=== PATIENT | female | born 1995 | race Two or more races ===

== ENCOUNTER 2016-10-10 04:37 | Emergency (ER) | payer OTHER ==
[2016-10-10 04:45] VITALS: BMI 14.6
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
[2016-10-10] MEDS ORDERED: INSULIN (NOVOLOG) ASPART 100 UNITS/ML 10ML VIAL SQ ONE (04:57)
[2016-10-10] MEDS ORDERED: SODIUM CHLORIDE 1,000 ML IV STA ×2 (04:57→05:52)
[2016-10-10 05:10] LABS: BASOPHIL 0.3 % (0-2.0); EOSINOPHIL 0.1 % (0-4.5); MCH 29.8 pg (25.7-33.7); MCHC 33.3 g/dl (32.0-36.0); MEAN CELL VOLUME 89.4 fl (80-96); MEAN PLT VOLUME 9.4 fl (7.5-11.1); NEUTROPHILS 76.7 % (42.8-82.8); PLATELET COUNT 157 K/MM3 (134-434); RDW 12.8 % (11.6-15.6); WHITE BLOOD COUNT 5.2 K/mm3 (4.0-10.0)
[2016-10-10 05:21] LABS: URINE APPEARANCE CLEAR; URINE BILIRUBIN NEGATIVE (NEGATIVE); URINE COLOR COLORLESS; URINE GLUCOSE (UA) 3+ (NEGATIVE); URINE KETONE 1+ (NEGATIVE); URINE LEUK ESTERASE NEGATIVE (NEGATIVE); URINE NITRITE NEGATIVE (NEGATIVE); URINE PROTEIN NEGATIVE (NEGATIVE); URINE UROBILINOGEN NEGATIVE E.U./dl (0.2-1.0)
[2016-10-10 05:30] LABS: URINE BLOOD 3+ (NEGATIVE)
[2016-10-10 05:32] LABS: URINE RBC 41 /hpf (0-3); URINE WBC 11 /hpf (3-5)
[2016-10-10 05:33] LABS: ALBUMIN 3.8 g/dl (3.4-5.0); ANION GAP 18 (8-16); BILIRUBIN,TOTAL 0.3 mg/dL (0.2-1.0); CO2 19 mmol/L (21-32); COCKROFT - GAULT 88.7485; CREATININE 0.6 mg/dL (0.55-1.02); SGOT/AST 17 U/L (15-37); SGPT/ALT 18 U/L (12-78)
[2016-10-10 05:34] LABS: ALK PHOS 119 U/L (45-117)
[2016-10-10 05:41] LABS: GLUCOSE,RANDOM 491 mg/dL (74-106)
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
[2016-10-10 07:46] LABS: ALBUMIN 3.2 g/dl (3.4-5.0); ALK PHOS 90 U/L (45-117); ANION GAP 11 (8-16); BILIRUBIN,TOTAL 0.2 mg/dL (0.2-1.0); CO2 23 mmol/L (21-32); CREATININE 0.4 mg/dL (0.55-1.02); GLUCOSE,RANDOM 210 mg/dL (74-106); SGOT/AST 11 U/L (15-37); SGPT/ALT 17 U/L (12-78); TOT PROT 5.6 g/dl (6.4-8.2)
[2016-10-10 07:51] LABS: CALCIUM 6.9 mg/dL (8.5-10.1)
[2016-10-10] MEDS ORDERED: CALCIUM GLUCONATE 10% - 1,000 MG/10 ML VIAL IVPB ONE (07:57)
[2016-10-10] MEDS ORDERED: CALCIUM GLUCONATE 10% - 1,000 MG/10 ML VIAL ONE (08:44)
[2016-10-10 11:12] LABS: CALCIUM 7.6 mg/dL (8.5-10.1); COCKROFT - GAULT 133.127; CREATININE 0.4 mg/dL (0.55-1.02)
[2016-10-10 12:45] VITALS: BP 103/69; PULSE 84; TEMP 98.1
== END 2016-10-10 12:41 | disposition home or self-care (01) ==
LOC: JER 04:37
PROC: 3E013VG Introduction of Insulin into Subcutaneous Tissue, Percutaneous Approach (ICD-10-PCS; principal; 2016-10-10)
PROC: 3E033GC Introduction of Other Therapeutic Substance into Peripheral Vein, Percutaneous Approach (ICD-10-PCS; 2016-10-10)
PROC: 3E0337Z Introduction of Electrolytic and Water Balance Substance into Peripheral Vein, Percutaneous Approach (ICD-10-PCS; 2016-10-10)
DX: E10.65 Type 1 diabetes mellitus with hyperglycemia (principal); Z79.4 Long term (current) use of insulin; E83.51 Hypocalcemia; R01.1 Cardiac murmur, unspecified; Y04.2XXA Assault by strike against or bumped into by another person, initial encounter; Y93.9 Activity, unspecified; Y92.9 Unspecified place or not applicable
CPT/HCPCS: 36415; 80048; 80053; 81003; 81015; 82009; 84703; 85025; 96361; 96372; 96374; 99284-25

== ENCOUNTER 2017-01-21 21:55 | Emergency (ER) | payer SELFPAY ==
[2017-01-21 22:07] VITALS: TEMP 97.8; BMI 14.9
--- NOTE | 2017-01-21 23:07 | PDOC ---
Attending Attestation - Resident Resident Name: Aarti Tovar - HPI HPI: 01/22/17 03:21 Pt comes with uncontrolled DM and headache. She doesn't take check her FS glucose. She doesn't follow with an research dietitian. SHe took extra insulin for the headache, as she has had [facility] in the past with elevated blood sugar. 01/22/17 03:22 Today her FS is 570s and she is in early DKA - Physicial Exam PE: 01/22/17 03:24 agree with resident exam. - Medical Decision Making 01/22/17 03:24 NSS, reg insulin in the ER. FS came down to 120 Repeat labs will be drawn to make sure pt's acetone cleared.
[2017-01-21] MEDS ORDERED: METOCLOPRAMIDE HCL INJECTION 10 MG/2 ML VIAL IVPUSH ONE (23:15)
[2017-01-21] MEDS ORDERED: KETOROLAC TROMETHAMINE 30 MG/1 ML VIAL IVPUSH ONE (23:15)
[2017-01-21] MEDS ORDERED: KETOROLAC TROMETHAMINE 30 MG/1 ML VIAL ONE (23:21)
[2017-01-21] MEDS ORDERED: METOCLOPRAMIDE HCL INJECTION 10 MG/2 ML VIAL ONE (23:21)
[2017-01-21] MEDS ORDERED: SODIUM CHLORIDE 1,000 ML IV STA (23:30)
[2017-01-21] MEDS ORDERED: INSULIN REGULAR HUMAN 100 UNITS/ML *VIAL IVPUSH ONE (23:31)
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
[2017-01-21 23:46] LABS: BASOPHIL 0.4 % (0-2.0); EOSINOPHIL 0.2 % (0-4.5); MCH 31.1 pg (25.7-33.7); MEAN CELL VOLUME 91.6 fl (80-96); MEAN PLT VOLUME 9.3 fl (7.5-11.1); PLATELET COUNT 199 K/MM3 (134-434); RDW 12.5 % (11.6-15.6)
[2017-01-22 00:31] LABS: ALK PHOS 113 U/L (45-117); ANION GAP 14 (8-16); BILIRUBIN,TOTAL 0.4 mg/dL (0.2-1.0); CALCIUM 9.5 mg/dL (8.5-10.1); CO2 22 mmol/L (21-32); CREATININE 0.6 mg/dL (0.55-1.02); SGOT/AST 11 U/L (15-37); SGPT/ALT 20 U/L (12-78); TOT PROT 7.1 g/dl (6.4-8.2)
[2017-01-22 00:33] LABS: PHOSPHOROUS 4.6 mg/dL (2.5-4.9)
[2017-01-22 00:39] LABS: GLUCOSE,RANDOM 578 mg/dL (74-106)
[2017-01-22 00:46] LABS: VENOUS BLOOD GAS HCO3 21.1 meq/L (19-25); VENOUS PH 7.31 (7.32-7.42)
[2017-01-22] MEDS ORDERED: INSULIN REGULAR HUMAN 100 UNITS/ML *VIAL IVPUSH ONE (00:56)
[2017-01-22] MEDS ORDERED: POTASSIUM CHLORIDE TABS 20 MEQ TABLET.ER (FP) PO ONE ×2 (01:00→01:21)
[2017-01-22] MEDS ORDERED: INSULIN REGULAR HUMAN 100 UNITS/ML *VIAL ONE (01:22)
[2017-01-22] MEDS ORDERED: SODIUM CHLORIDE 0.9% 500 ML INFUS.BAG IV ONE (01:24)
[2017-01-22] MEDS ORDERED: SODIUM CHLORIDE 1,000 ML IV STA (01:49)
[2017-01-22 02:06] LABS: URINE APPEARANCE CLEAR; URINE BILIRUBIN NEGATIVE (NEGATIVE); URINE BLOOD NEGATIVE (NEGATIVE); URINE COLOR STRAW; URINE GLUCOSE (UA) 3+ (NEGATIVE); URINE KETONE 1+ (NEGATIVE); URINE LEUK ESTERASE NEGATIVE (NEGATIVE); URINE NITRITE NEGATIVE (NEGATIVE); URINE PROTEIN NEGATIVE (NEGATIVE); URINE UROBILINOGEN NEGATIVE mg/dL (0.2-1.0)
[2017-01-22 04:09] LABS: ANION GAP 11 (8-16); CALCIUM 8.1 mg/dL (8.5-10.1); CO2 22 mmol/L (21-32); CREATININE 0.4 mg/dL (0.55-1.02); GLUCOSE,RANDOM 79 mg/dL (74-106)
[2017-01-22 04:15] LABS: ACETONE SERUM NEGATIVE (NEGATIVE)
[2017-01-22 04:46] VITALS: BP 106/63; PULSE 97
--- NOTE | 2017-01-22 21:34 | EKG ---
Test Reason : Blood Pressure : / mmHG Vent. Rate : 068 BPM Atrial Rate : 068 BPM P-R Int : 146 ms QRS Dur : 084 ms QT Int : 402 ms P-R-T Axes : 076 070 035 degrees QTc Int : 427 ms NORMAL SINUS RHYTHM NORMAL ECG WHEN COMPARED WITH ECG OF 12-AUG-2011 09:56, NO SIGNIFICANT CHANGE WAS FOUND Confirmed by ALLAN OSEI MD ([id number]) on 01/22/2017 9:33:44 PM Referred By: Confirmed By:ALLAN OSEI MD
== END 2017-01-22 04:54 | disposition home or self-care (01) ==
LOC: JER 21:55
PROC: 3E0337Z Introduction of Electrolytic and Water Balance Substance into Peripheral Vein, Percutaneous Approach (ICD-10-PCS; principal; 2017-01-21)
PROC: 3E033VG Introduction of Insulin into Peripheral Vein, Percutaneous Approach (ICD-10-PCS; 2017-01-21)
PROC: 3E033GC Introduction of Other Therapeutic Substance into Peripheral Vein, Percutaneous Approach (ICD-10-PCS; 2017-01-21)
PROC: 3E0333Z Introduction of Anti-inflammatory into Peripheral Vein, Percutaneous Approach (ICD-10-PCS; 2017-01-21)
DX: E10.65 Type 1 diabetes mellitus with hyperglycemia (principal); Z79.4 Long term (current) use of insulin
CPT/HCPCS: 36415; 71020-TC; 80048; 80053; 81003; 82009; 82010; 82803; 83735; 84100; 84703; 85025; 87040; 93005; 93010; 99284-25

== ENCOUNTER 2017-06-02 19:35 | Emergency (ER) | payer OTHER ==
[2017-06-02 19:59] VITALS: BP 132/71; PULSE 87; TEMP 98.2; BMI 18.8
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
[2017-06-02] MEDS ORDERED: SODIUM CHLORIDE 0.9% 500 ML INFUS.BAG IV ONE (20:35)
[2017-06-02] MEDS ORDERED: METOCLOPRAMIDE HCL INJECTION 10 MG/2 ML VIAL IVPUSH ONE (20:42)
[2017-06-02 21:02] LABS: BASO % 0.4 % (0-2.0); EOS % 0.3 % (0-4.5); HEMATOCRIT 39.4 % (32.4-45.2); HEMOGLOBIN 13.3 GM/dL (10.7-15.3); LYMPH % 16.1 % (8-40); MCH 29.7 pg (25.7-33.7); MCHC 33.6 g/dl (32.0-36.0); MEAN CELL VOLUME 88.2 fl (80-96); MEAN PLT VOLUME 8.1 fl (7.5-11.1); NEUT % 76.2 % (42.8-82.8); PLATELET COUNT 200 K/MM3 (134-434); RBC 4.47 M/mm3 (3.60-5.2); RDW 13.1 % (11.6-15.6); WHITE BLOOD COUNT 8.9 K/mm3 (4.0-10.0)
[2017-06-02 21:04] LABS: URINE APPEARANCE CLEAR; URINE BILIRUBIN NEGATIVE (NEGATIVE); URINE BLOOD NEGATIVE (NEGATIVE); URINE COLOR STRAW; URINE GLUCOSE (UA) NEGATIVE (NEGATIVE); URINE KETONE NEGATIVE (NEGATIVE); URINE LEUK ESTERASE NEGATIVE (NEGATIVE); URINE NITRITE NEGATIVE (NEGATIVE); URINE PROTEIN NEGATIVE (NEGATIVE); URINE UROBILINOGEN NEGATIVE mg/dL (0.2-1.0)
[2017-06-02] MEDS ORDERED: METOCLOPRAMIDE HCL INJECTION 10 MG/2 ML VIAL ONE (21:10)
[2017-06-02 21:38] LABS: ALBUMIN 3.2 g/dl (3.4-5.0); ANION GAP 8 (8-16); BLOOD UREA NITROGEN 11 mg/dL (7-18); CALCIUM 8.2 mg/dL (8.5-10.1); CHLORIDE 104 mmol/L (98-107); CO2 26 mmol/L (21-32); CREATININE 0.3 mg/dL (0.55-1.02); GLUCOSE,RANDOM 85 mg/dL (74-106); LIPASE 100 U/L (73-393); SGOT/AST 9 U/L (15-37); SGPT/ALT 16 U/L (12-78); SODIUM 138 mmol/L (136-145); TOT PROT 6.8 g/dl (6.4-8.2)
[2017-06-02 21:44] LABS: ALK PHOS 51 U/L (45-117); BILIRUBIN,TOTAL 0.2 mg/dL (0.2-1.0)
== END 2017-06-02 23:56 | disposition home or self-care (01) ==
LOC: JER 19:35
PROC: 3E033GC Introduction of Other Therapeutic Substance into Peripheral Vein, Percutaneous Approach (ICD-10-PCS; principal; 2017-06-02)
DX: O26.892 Other specified pregnancy related conditions, second trimester (principal); R10.13 Epigastric pain; O24.912 Unspecified diabetes mellitus in pregnancy, second trimester; Z79.4 Long term (current) use of insulin; Z3A.15 15 weeks gestation of pregnancy
CPT/HCPCS: 36415; 76801-TC; 80053; 81003; 83690; 84702; 85025; 86850; 86900; 86901; 87491; 87591; 96374; 99281-25

== ENCOUNTER 2017-11-08 11:37 | Emergency (ER) | payer OTHER ==
[2017-11-08 11:44] VITALS: BP 88/56; TEMP 97.1; BMI 17.8
--- NOTE | 2017-11-08 11:57 | PDOC ---
History of Present Illness - General Chief Complaint: Foreign Body (FB) Stated Complaint: POST OP PROBLEM Time Seen by Provider: 11/08/17 11:43 History Source: Patient Exam Limitations: No Limitations - History of Present Illness Initial Comments: CHIEF COMPLAINT: 22 y/o afebrile female with PMH IDDM, s/p on with IUD placement c/o wires coming out of her vagina. HISTORY OF PRESENT ILLNESS: The patient states she noticed wires coming out of her vagina today. She is concerned it's the wires from her IUD. She denies pain, fever, vaginal discharge and all other symptoms. Vital signs on arrival are notable for pulse of 104. REVIEW OF SYSTEMS: GENERAL/CONSTITUTIONAL: No fever/chills. No weakness. No weight change. HEAD, EYES, EARS, NOSE AND THROAT: No change in vision. No ear pain or discharge. No sore throat. VAGINAL: +wires noted coming out of vagina MUSCULOSKELETAL: No joint or muscle swelling or pain. No neck or back pain. SKIN: No rash or easy bruising. NEUROLOGIC: No headache, vertigo, loss of consciousness, or loss of sensation. PHYSICAL EXAM: GENERAL: The patient is awake, alert, and fully oriented, in no acute distress. HEAD: Normal with no signs of trauma. ABDOMEN: Well healed scar in lower abdomen VAGINA: 2 blue strings seen protruding from vaginal opening. Speculum exam performed - unable to determine origin of strings, but assume from IUD. No lacerations, lesions or vaginal bleeding. NEUROLOGICAL: Normal speech, normal gait. CN II-XII grossly intact. PSYCH: Normal mood, normal affect. SKIN: Warm, dry, normal turgor, no rashes or lesions noted. Past History - Past Medical History Allergies/Adverse Reactions: Allergies Allergy/AdvReac Type Severity Reaction Status Date / Time No Known Allergies Allergy Verified 11/08/17 11:40 Home Medications: Ambulatory Orders Insulin Aspart [Novolog] 6 unit SQ ACLD 10/08/17 Insulin Aspart [Novolog] 10 unit SQ ACBK 10/08/17 Insulin Detemir [Levemir Flextouch] 16 units SQ HS 10/08/17 Insulin Detemir [Levemir Flextouch] 25 unit SQ ACBK 10/08/17 Pnv No.95/Ferrous Fum/Folic AC [ Vitamin Tablet] 1 each PO DAILY Cardiac Disorders: Yes (HEART MURMUR) COPD: No Diabetes: Yes Thyroid Disease: No - Family Disease History Family Disease History: Diabetes: Mother - Immunization History Immunization Up to Date: Yes - Suicide/Smoking/Psychosocial Hx Smoking Status: No Smoking History: Never smoked Have you smoked in the past 12 months: No Number of Cigarettes Smoked Daily: 5 Hx Alcohol Use: No Drug/Substance Use Hx: No Substance Use Type: None *Physical Exam - Vital Signs Last Vital Signs Temp Pulse Resp BP Pulse Ox 97.1 F L 104 H 16 88/56 99 11/08/17 11:37 11/08/17 11:37 11/08/17 11:37 11/08/17 11:37 11/08/17 11:37 Medical Decision Making - Medical Decision Making A/P: 22 y/o female with strings seen protruding from vaginal opening. Suspect they are from IUD. Plan is as follows: 1. Transvaginal ultrasound to confirm IUD placement FOOD MANAGER is Dr. Bailey Tovar Transvaginal Ultrasound IMPRESSION: IUD appears to be in place. Informed the patient of her results. She is no longer tachycardic. Suggested follow up with Dr. Tovar as soon as possible and return to the ER with any worsening or concerning symptoms. The patient verbalizes understanding of all instructions, has no further questions and is awaiting discharge. *DC/Admit/Observation/Transfer Diagnosis at time of Disposition: Foreign body - Discharge Dispostion Disposition: HOME Condition at time of disposition: Improved - Referrals Referrals: Bailey Tovar MD [Certified Nurse Employment Security Officer] - Call tomorrow - Patient Instructions Printed Discharge Instructions: DI for Foreign Body in Vagina-Adult Additional Instructions: Discharge Instructions: -You have a foreign body in your vagina; it may be the strings for your IUD -Please call Bailey Tovar tomorrow to schedule follow up appointment -Return to the ER with any worsening or concerning symptoms - Post Discharge Activity
[2017-11-08 15:35] VITALS: PULSE 90
== END 2017-11-08 16:04 | disposition home or self-care (01) ==
LOC: JER 11:37
DX: O90.89 Other complications of the puerperium, not elsewhere classified (principal); Z30.431 Encounter for routine checking of intrauterine contraceptive device
CPT/HCPCS: 76830-TC; 99281-25

== ENCOUNTER 2018-06-24 23:26 | Inpatient (IN) | payer SELFPAY ==
--- NOTE | 2018-06-25 00:07 | PDOC ---
Attending Attestation - Resident Resident Name: Loco Granados - ED Attending Attestation I have performed the following: I have examined & evaluated the patient, The case was reviewed & discussed with the resident, I agree w/resident's findings & plan, Exceptions are as noted - HPI HPI: 06/25/18 00:06 23 yo female p/w complaint of shortness of breath. She is IDDM and noncompliant with her meds. She gave 8 months ago and has not seen an caretaker since that time <Miranda Monsalve - Last Filed: 06/25/18 00:05> - Physicial Exam PE: 06/25/18 00:50 GENERAL: Well-appearing, well-nourished. No apparent distress. HEENT: Normocephalic, atraumatic. PERRL, EOM intact. +CARDIOVASCULAR: Tachycardic. +PULMONARY: Tachypneic. Labored breathing. ABDOMEN: Flat. Soft, non-distended, non-tender. EXTREMITIES: No edema. Normal ROM in all four extremities. No gross deformities. SKIN: Warm, dry. No rash NEUROLOGICAL: No focal neurological deficits. - Medical Decision Making 06/25/18 01:44 Patient will be admitted to hospitalist ICU as DKA. <Nimesh Arnold - Last Filed: 06/25/18 01:45> Attestations - Attestations 06/25/18 00:50 Documentation prepared by Nimesh Arnold, acting as medical technologist blood bank for Miranda Monsalve MD. <Nimesh Arnold - Last Filed: 06/25/18 01:45>
[2018-06-25] MEDS ORDERED: SODIUM CHLORIDE 0.9% 1000 ML INFUS.BAG IV ONE ×3 (00:14→01:23)
[2018-06-25] MEDS ORDERED: POTASSIUM CHLORIDE 20 MEQ PREMIX IVPB 100 ML IVPB ONE (00:15)
[2018-06-25] MEDS ORDERED: ONDANSETRON 4 MG/2 ML VIAL IVPUSH ONE (00:34)
[2018-06-25 00:39] LABS: ALLENS TEST POSITIVE; ARTERIAL BLD GAS O2 SATURATION 82.9 % (90-98.9); ARTERIAL BLOOD GAS BASE EXCESS -26.5 meq/l (-2-2); ARTERIAL BLOOD GAS PCO2 19.2 mmHg (35-45); ARTERIAL BLOOD GAS PO2 59.2 mmHg (80-100)
[2018-06-25 00:40] LABS: ARTERIAL BLOOD GAS pH 7.01 (7.35-7.45)
[2018-06-25] MEDS ORDERED: KCL 10 MEQ IVPB 10 MEQ/100 ML INFUS.BAG IVPB SCH (00:45)
[2018-06-25 00:49] LABS: VENOUS PC02 23.9 mmHg (38-52); VENOUS PO2 47.5 mmHg (28-48)
--- NOTE | 2018-06-25 00:52 | PDOC ---
History of Present Illness - General Chief Complaint: Shortness of Breath Stated Complaint: SOB Time Seen by Provider: 06/24/18 23:42 History Source: Patient Exam Limitations: No Limitations - History of Present Illness Initial Comments: 06/25/18 00:48 The patient is a 23F with a PMH of T1DM who presents to the ER with 2 days of worsening nausea, SOB, and abdominal pain. The patient states that she has had 2 days of shortness of breath. For these 2 days, she has not taken her insulin. She denies any fever, chills, abdominal pain, dysuria, but admits to blood tinged sputum and nausea. She denies drug or alcohol use. Past History - Past Medical History Allergies/Adverse Reactions: Allergies Allergy/AdvReac Type Severity Reaction Status Date / Time No Known Allergies Allergy Verified 11/08/17 11:40 Home Medications: Ambulatory Orders Insulin Aspart [Novolog] 6 unit SQ ACLD 10/08/17 Insulin Aspart [Novolog] 10 unit SQ ACBK 10/08/17 Insulin Detemir [Levemir Flextouch] 16 units SQ HS 10/08/17 Insulin Detemir [Levemir Flextouch] 25 unit SQ ACBK 10/08/17 Pnv No.95/Ferrous Fum/Folic AC [ Vitamin Tablet] 1 each PO DAILY Cardiac Disorders: Yes (HEART MURMUR) COPD: No Diabetes: Yes Thyroid Disease: No - Family Disease History Family Disease History: Diabetes: Mother - Immunization History Immunization Up to Date: Yes - Suicide/Smoking/Psychosocial Hx Smoking Status: No Smoking History: Never smoked Have you smoked in the past 12 months: No Number of Cigarettes Smoked Daily: 5 Hx Alcohol Use: No Drug/Substance Use Hx: No Substance Use Type: None Review of Systems - Review of Systems Able to Perform ROS?: Yes Comments:: 06/25/18 01:57 GENERAL/CONSTITUTIONAL: No fever or chills. No weakness. HEAD, EYES, EARS, NOSE AND THROAT: No change in vision. No ear pain or discharge. No sore throat. CARDIOVASCULAR: No chest pain, palpitations, or lightheadedness. RESPIRATORY: Positive for SOB. No cough or wheezing. GASTROINTESTINAL: No nausea, vomiting, diarrhea, constipation, or abdominal pain. GENITOURINARY: No dysuria, frequency, hematuria, or change in urination. MUSCULOSKELETAL: No joint or muscle swelling or pain. No neck or back pain. SKIN: No rash or lesions. NEUROLOGIC: No headache, numbness, tingling, focal weakness, loss of consciousness, or change in strength/sensation. Is the patient limited Icelandic proficient: No *Physical Exam - Vital Signs Last Vital Signs Temp Pulse Resp BP Pulse Ox 98.9 F 120 H 20 121/71 100 06/24/18 23:27 06/24/18 23:27 06/24/18 23:27 06/24/18 23:27 06/24/18 23:27 - Physical Exam Comments: 06/25/18 01:58 GENERAL: Well developed, well nourished. Awake and alert. No acute distress. HEENT: Normocephalic, atraumatic. Hearing grossly normal. Moist mucous membranes. PERRLA, EOMI. No conjunctival pallor. Sclera are non-icteric. NECK: Supple. Full ROM. No JVD. CARDIOVASCULAR: Tachycardic rate with regular rhythm. No murmurs, rubs, or gallops. PULMONARY: Tachypneic without evidence of respiratory distress. Lungs clear to auscultation bilaterally. No wheezing, rales or rhonchi. ABDOMINAL: Soft. Non-tender. Non-distended. No rebound or guarding. GENITOURINARY: No CVA tenderness bilaterally. MUSCULOSKELETAL: Normal range of motion at all joints. No bony deformities or tenderness. EXTREMITIES: No cyanosis. No clubbing. No edema. No calf tenderness or swelling. SKIN: Warm and dry. Normal capillary refill. No rashes. No jaundice. NEUROLOGICAL: Alert, awake, appropriate. Cranial nerves 2-12 grossly intact. Normal speech. Gait is normal without ataxia. PSYCHIATRIC: Cooperative. Good eye contact. Appropriate mood and affect. Moderate Sedation - Procedure Monitoring Vital Signs: Procedure Monitoring Vital Signs Temperature 98.9 F 06/24/18 23:27 Pulse Rate 120 H 06/24/18 23:27 Respiratory Rate 20 06/24/18 23:27 Blood Pressure 121/71 06/24/18 23:27 O2 Sat by Pulse Oximetry (%) 100 06/24/18 23:27 Heart Score/ECG Review #1 General ECG Interpretation: Sinus Rhythm, Normal Rate, Normal Intervals, No acute ischemic changes Compared to previous ECG there are: No significant change 06/25/18 01:59 Sinus tachycardia vent rate 125 MN 140 QRS 86 QTc 483 No STD or MANUEL No signs of acute ischemia ED Treatment Course - LABORATORY CBC & Chemistry Diagram: 06/25/18 00:14 06/25/18 00:14 - ADDITIONAL ORDERS Additional order review: Laboratory Results 06/25/18 02 00:30 23:59 Puncture Site Left brachial ABG pH 7.01 L* ABG pCO2 at Pt Temp 19.2 L* ABG pO2 at Pt Temp 59.2 L ABG HCO3 4.6 L* ABG O2 Sat (Measured) 82.9 L ABG O2 Content 15.9 ABG Base Excess -26.5 L* Rasheed Test Positive O2 Delivery Device Room air Oxygen Flow Rate No PEEP 0.0 POC Glucometer > 600 06/25/18 02 00:14 23:59 RBC Cancelled MCV Cancelled MCHC Cancelled RDW Cancelled MPV Cancelled Neutrophils % Cancelled Lymphocytes % Cancelled Monocytes % Cancelled Eosinophils % Cancelled Basophils % Cancelled POC Glucometer > 600 - Medications Given in the ED: ED Medications Discontinued Medications Generic Name Dose Route Start Last Admin Trade Name Freq PRN Reason Stop Dose Admin Sodium Chloride 1,000 ml 06/25/18 00:14 06/25/18 00:24 Normal Saline - IV 06/25/18 00:15 1,000 ml ONCE ONE Administration Medical Decision Making - Medical Decision Making 06/25/18 01:28 The patient is a 23F with a PMH of T1DM who presents to the ER with complaints of shortness of breath. Pt is thin and grossly dry, concerning for DKA. Labs drawn and 2 L NS ordered immediately. Pt normoxic on room air. EKG being obtained. pH 7.01. Glucose >900. Insulin drip with push started. Pt denies any long car rides/plane trips, hx of cancer, hx of DVT/PE, but admits to hemoptysis ("a little blood when I coughed up") yesterday. Pt endorsed to Dr. Kilpatrick for ICU admission. Hospitalist paged. 06/25/18 01:[address] Bloom for admission. Pending CBC draw which I will send now. *DC/Admit/Observation/Transfer Diagnosis at time of Disposition: DKA (diabetic ketoacidoses) Qualifiers: Diabetes mellitus type: type 1 Diabetes mellitus complication detail: without coma Qualified Code(s): E10.10 - Type 1 diabetes mellitus with ketoacidosis without coma - Discharge Dispostion Condition at time of disposition: Guarded Decision to Admit order: Yes - Referrals - Patient Instructions - Post Discharge Activity
[2018-06-25 01:09] LABS: VENOUS PH 6.95 (7.32-7.42)
[2018-06-25 01:21] LABS: ALBUMIN 3.5 g/dl (3.4-5.0); ALK PHOS 159 U/L (45-117); ANION GAP 25 MMOL/L (8-16); BILIRUBIN,TOTAL 0.4 mg/dL (0.2-1); BLOOD UREA NITROGEN 17 mg/dL (7-18); CALCIUM 7.6 mg/dL (8.5-10.1); CHLORIDE 94 mmol/L (98-107); CO2 6 mmol/L (21-32); COCAINE, UR NEGATIVE ng/ml (CUTOFF=300); CREATININE 1.3 mg/dL (0.55-1.3); MAGNESIUM 2.7 mg/dL (1.8-2.4); METHADONE, UR NEGATIVE ng/ml (CUTOFF=300); OPIATES, URI NEGATIVE ng/ml (CUTOFF=300); PHENCYCLIDINE,URINE NEGATIVE ng/ml (CUTOFF=25); POTASSIUM 5.5 mmol/L (3.5-5.1); SGOT/AST 19 U/L (15-37); SGPT/ALT 24 U/L (13-61); SODIUM 125 mmol/L (136-145); TOT PROT 7.6 g/dl (6.4-8.2); URINE AMPHETAMINES NEGATIVE ng/ml (CUTOFF=500); URINE BARBITURATES NEGATIVE ng/ml (CUTOFF=200); URINE BENZODIAZEPINES NEGATIVE ng/ml (CUTOFF=200)
[2018-06-25] MEDS ORDERED: INSULIN REGULAR HUMAN 100 UNITS/ML *VIAL IVPUSH ONE (01:22)
[2018-06-25 01:25] LABS: GLUCOSE,RANDOM 914 mg/dL (74-106)
[2018-06-25] MEDS ORDERED: INSULIN REGULAR 100 UNITS in SODIUM CHLORIDE 99 ML IVPB SCH (01:30)
[2018-06-25] MEDS ORDERED: INSULIN REGULAR HUMAN 100 UNITS/ML *VIAL ONE (01:52)
[2018-06-25 02:11] LABS: BASO % 0.6 % (0-2.0); EOS % 0.1 % (0-4.5); HEMATOCRIT 43.3 % (32.4-45.2); HEMOGLOBIN 13.9 GM/dL (10.7-15.3); LYMPH % 3.5 % (8-40); MCH 33.4 pg (25.7-33.7); MCHC 32.1 g/dl (32.0-36.0); MEAN PLT VOLUME 9.2 fl (7.5-11.1); NEUT % 90.8 % (42.8-82.8); PLATELET COUNT 306 K/MM3 (134-434); RBC 4.16 M/mm3 (3.60-5.2); RDW 13.9 % (11.6-15.6); WHITE BLOOD COUNT 18.2 K/mm3 (4.0-10.0)
[2018-06-25 02:22] LABS: ACETONE SERUM POSITIVE LARGE 3+ (NEGATIVE)
--- NOTE | 2018-06-25 02:36 | HP ---
<Alecia Nielson - Last Filed: 06/25/18 18:34> CHIEF COMPLAINT: nausea, vomiting, dizziness PCP:Dr. Barragan HISTORY OF PRESENT ILLNESS: Patient is a 23 year old female with past medical history of IDDM, presented with sOB, dizziness and chest pain, accompanied by nausea and vomiting for 1 day. Patient reported feeling unwell yesterday, reporting episodes of nausea and vomiting, that was then followed by cough with blood-tinged sputum, as well as intermittent midsternal 7/10 chest tightness and dizziness. This was the first time patient experienced these symptoms. Patient is known to be noncompliant with her insulin, with last administration 20units of novolog 2 days ago because she was feeling "dehydrated". She was previously on Levemir, but as per patient was discontinued years ago. Patient does not check her blood sugar regularly, and is unaware of her HbA1c. She was referred to see an house carpenter but has not yet made an appointment. Patient denies fever, chills, headache, loss of appetite, nasal congestion, abdominal pain, diarrhea, urinary symptoms. ER course was notable for: (1)Glu 918, AG 25, Na 125, K 5.5 (2)ABG: pH 7.01, pCO2 19.2, HCO3 6, O2 52 (3)Insulin drip with bolus started Recent Travel:denies PAST MEDICAL HISTORY: IDDM PAST SURGICAL HISTORY: None Social History: Smoking:denies Alcohol:occasional Drugs: denies Family History: noncontributory Allergies No Known Allergies Allergy (Verified 11/08/17 11:40) HOME MEDICATIONS: Home Medications Medication Instructions Recorded Insulin Aspart [Novolog] 6 unit SQ ACLD 10/08/17 Insulin Aspart [Novolog] 10 unit SQ ACBK 10/08/17 Insulin Detemir [Levemir Flextouch] 16 units SQ HS 10/08/17 Insulin Detemir [Levemir Flextouch] 25 unit SQ ACBK 10/08/17 Pnv No.95/Ferrous Fum/Folic AC 1 each PO DAILY 10/08/17 [ Vitamin Tablet] REVIEW OF SYSTEMS CONSTITUTIONAL: Absent: fever, chills, diaphoresis, generalized weakness, malaise, loss of appetite, weight change HEENT: Absent: rhinorrhea, nasal congestion, throat pain, throat swelling, difficulty swallowing, mouth swelling, ear pain, eye pain, visual changes CARDIOVASCULAR: Absent: chest pain, syncope, palpitations, irregular heart rate, lightheadedness , peripheral edema RESPIRATORY: Absent: cough, shortness of breath, dyspnea with exertion, orthopnea, wheezing, stridor, hemoptysis GASTROINTESTINAL: Absent: abdominal pain, abdominal distension, nausea, vomiting, diarrhea, constipation, melena, hematochezia GENITOURINARY: Absent: dysuria, frequency, urgency, hesitancy, hematuria, flank pain, genital pain MUSCULOSKELETAL: Absent: myalgia, arthralgia, joint swelling, back pain, neck pain SKIN: Absent: rash, itching, pallor HEMATOLOGIC/IMMUNOLOGIC: Absent: easy bleeding, easy bruising, lymphadenopathy, frequent infections ENDOCRINE: Absent: unexplained weight gain, unexplained weight loss, heat intolerance, cold intolerance NEUROLOGIC: Absent: headache, focal weakness or paresthesias, dizziness, unsteady gait, seizure, mental status changes, bladder or bowel incontinence PSYCHIATRIC: Absent: anxiety, depression, suicidal or homicidal ideation, hallucinations. PHYSICAL EXAMINATION Vital Signs - 24 hr 06/24/18 23:27 Temperature 98.9 F Pulse Rate 120 H Respiratory 20 Rate Blood Pressure 121/71 O2 Sat by Pulse 100 Oximetry (%) GENERAL: Awake, alert, and fully oriented, on 2L NC HEAD: Normal with no signs of trauma. EYES: PERRLA, EOMI, sclera anicteric, conjunctiva clear. EARS, NOSE, THROAT: Ears normal, oropharynx clear without exudates. Dry mucous membranes. NECK: Normal range of motion, supple without lymphadenopathy, JVD, or masses. LUNGS: Breath sounds equal, clear to auscultation bilaterally. HEART: Regular rate and rhythm, normal S1 and S2 without murmur, rub or gallop. ABDOMEN: Soft, nontender, not distended, normoactive bowel sounds. UPPER EXTREMITIES: 2+ pulses, warm, well-perfused. No peripheral edema. LOWER EXTREMITIES: 2+ pulses, warm, well-perfused. No peripheral edema. NEUROLOGICAL: AAOx3. Cranial nerves II-XII intact. Normal speech. Gait not observed. PSYCHIATRIC: Cooperative. Good eye contact. Appropriate mood and affect. SKIN: Warm, dry, normal turgor, no rashes or lesions noted. Laboratory Results - last 24 hr 06/24/18 06/25/18 06/25/18 23:59 00:14 00:14 WBC Cancelled Corrected WBC (auto) Cancelled RBC Cancelled Hgb Cancelled Hct Cancelled MCV Cancelled MCH Cancelled MCHC Cancelled RDW Cancelled Plt Count Cancelled MPV Cancelled Absolute Neuts (auto) Cancelled Neutrophils % Cancelled Lymphocytes % Cancelled Monocytes % Cancelled Eosinophils % Cancelled Basophils % Cancelled Nucleated RBC % Cancelled Platelet Estimate Cancelled Platelet Comment Cancelled Puncture Site ABG pH ABG pCO2 at Pt Temp ABG pO2 at Pt Temp ABG HCO3 ABG O2 Sat (Measured) ABG O2 Content ABG Base Excess Rasheed Test VBG pH POC VBG pCO2 POC VBG pO2 Mixed VBG HCO3 O2 Delivery Device Oxygen Flow Rate PEEP Sodium Potassium Chloride Carbon Dioxide Anion Gap BUN Creatinine Creat Clearance w eGFR POC Glucometer > 600 Random Glucose Calcium Magnesium Total Bilirubin AST ALT Alkaline Phosphatase Total Protein Albumin Urine HCG, Qual Opiates Screen Negative Methadone Screen Negative Barbiturate Screen Negative Phencyclidine Screen Negative Ur Amphetamines Screen Negative MDMA (Ecstasy) Screen Negative Benzodiazepines Screen Negative Cocaine Screen Negative U Marijuana (THC) Screen Negative Acetone, Qual 06/25/18 06/25/18 06/25/18 00:14 00:14 00:14 WBC Corrected WBC (auto) RBC Hgb Hct MCV MCH MCHC RDW Plt Count MPV Absolute Neuts (auto) Neutrophils % Lymphocytes % Monocytes % Eosinophils % Basophils % Nucleated RBC % Platelet Estimate Platelet Comment Puncture Site ABG pH ABG pCO2 at Pt Temp ABG pO2 at Pt Temp ABG HCO3 ABG O2 Sat (Measured) ABG O2 Content ABG Base Excess Rasheed Test VBG pH 6.95 L* D POC VBG pCO2 23.9 L D POC VBG pO2 47.5 D Mixed VBG HCO3 5.0 L* O2 Delivery Device Oxygen Flow Rate PEEP Sodium 125 L Potassium 5.5 H Chloride 94 L Carbon Dioxide 6 L Anion Gap 25 H BUN 17 Creatinine 1.3 Creat Clearance w eGFR 49.91 POC Glucometer Random Glucose 914 H* Calcium 7.6 L Magnesium 2.7 H Total Bilirubin 0.4 AST 19 ALT 24 Alkaline Phosphatase 159 H Total Protein 7.6 Albumin 3.5 Urine HCG, Qual Negative Opiates Screen Methadone Screen Barbiturate Screen Phencyclidine Screen Ur Amphetamines Screen MDMA (Ecstasy) Screen Benzodiazepines Screen Cocaine Screen U Marijuana (THC) Screen Acetone, Qual Positive large 3+ H 06/25/18 06/25/18 06/25/18 00:30 01:00 02:00 WBC 18.2 H Corrected WBC (auto) RBC 4.16 Hgb 13.9 Hct 43.3 D MCV 104.0 H MCH 33.4 D MCHC 32.1 RDW 13.9 Plt Count 306 D MPV 9.2 Absolute Neuts (auto) 16.6 H Neutrophils % 90.8 H Lymphocytes % 3.5 L D Monocytes % 5.0 Eosinophils % 0.1 Basophils % 0.6 D Nucleated RBC % 0 Platelet Estimate Platelet Comment Puncture Site Left brachial ABG pH 7.01 L* ABG pCO2 at Pt Temp 19.2 L* ABG pO2 at Pt Temp 59.2 L ABG HCO3 4.6 L* ABG O2 Sat (Measured) 82.9 L ABG O2 Content 15.9 ABG Base Excess -26.5 L* Rasheed Test Positive VBG pH POC VBG pCO2 POC VBG pO2 Mixed VBG HCO3 O2 Delivery Device Room air Oxygen Flow Rate No PEEP 0.0 Sodium Cancelled Potassium Cancelled Chloride Cancelled Carbon Dioxide Cancelled Anion Gap Cancelled BUN Cancelled Creatinine Cancelled Creat Clearance w eGFR Cancelled POC Glucometer Random Glucose Cancelled Calcium Cancelled Magnesium Total Bilirubin Cancelled AST Cancelled ALT Cancelled Alkaline Phosphatase Cancelled Total Protein Cancelled Albumin Cancelled Urine HCG, Qual Opiates Screen Methadone Screen Barbiturate Screen Phencyclidine Screen Ur Amphetamines Screen MDMA (Ecstasy) Screen Benzodiazepines Screen Cocaine Screen U Marijuana (THC) Screen Acetone, Qual Cancelled ASSESSMENT/PLAN: Patient is a 23 year old female with past medical history of IDDM, presented with dizziness and chest pain, accompanied by nausea and vomiting for 1 day. #High anion gap metabolic acidosis 2/2 Diabetic ketoacidosis -Glu 918, Anion gap 25 -ABG: pH 7.01, pCO2 19.2, HCO3 6, O2 52 -Insulin drip started with IV bolus given at the ED -Will start bridging to sq long acting insulin with SSI once anion gap closes -Started IV NS @125cc/hr -May switch to D5/NS if glucose falls <200 -BMP q4h -BGM q1h -Leukocytosis likely stress reactive -Urine toxicology negative -Urinalysis, Chest CT, flu swab ordered. #Hyponatremia likely 2/2 hyperglycemia -Na 125 --> corrected Na 138 -will continue to monitor bmp #Hyperkalemia -K 5.5 likely 2/2 dehydration -will likely go down with IV insulin -continue to monitor bmp q4h -replete with K<5.3 #ANISHA -BUN/Cr 27/1.3 -likely pre-renal 2/2 dehydration, poor oral intake -on IV fluids -will continue to monitor #Macrocytosis -Vit B12 and folate levels ordered #Chest pain -Trop and EKG to rule out ACS #Hemoptysis -rule out PNA, other infectious etiology -Chest CT ordered #Elevated Alk Phos -GGT, RUQ US #FEN -IV NS @125cc/hr -hyponatremia, hypokalemia -routine bmp monitoring -NPO #Prophylaxis -Heparin 5000 units sq tid #Disposition -full code -admit to ICU for closer monitoring Visit type - Emergency Visit Emergency Visit: Yes ED Registration Date: 06/25/18 Care time: The patient presented to the Emergency Department on the above date and was hospitalized for further evaluation of their emergent condition. - New Patient This patient is new to me today: Yes Date on this admission: 06/25/18 - Critical Care Critical Care patient: Yes Total Critical Care Time (in minutes): 40 Critical Care Statement: The care of this patient involved high complexity decision making to prevent further life threatening deterioration of the patient 's condition and/or to evaluate & treat vital organ system(s) failure or risk of failure. <Jluis Bloom - Last Filed: 07/22/18 20:56> Seen and examined; agree with the above aside from what is supplemented by myself in my own documentation. Reviewed all rodriguez parts of history and exam with resident team and verified independently.
[2018-06-25] MEDS ORDERED: SODIUM CHLORIDE 1,000 ML IV SCH ×2 (02:45→15:15)
--- NOTE | 2018-06-25 03:09 | PN ---
Teaching Attending Note Name of Resident: Alecia Nielson ATTENDING PHYSICIAN STATEMENT I saw and evaluated the patient. I reviewed the resident's note and discussed the case with the resident. I agree with the resident's findings and plan as documented. SUBJECTIVE: Seen and examined; please refer to resident note for further historical documentation. Briefly, she is a non-compliant type 1 diabetic who presents with DKA after not taking her insulin for 2 days. She had some nonspecific nausea, chest pain, etc. She has been admitted to hospitals before for her DM. She only takes her home insulin (novolog) 20 units occasionally when she feels she is starting to get sick. She does not check her sugar at all. She has not yet seen an field crop grower. She has a severe AG+ Metabolic Acidosis and +ketones and glucose to 900-range. Will be brought to the ICU. 10 sys ROS done and negative aside from HPI PMH, PSH, Family hx, Social hx reviewed Medications pending reconciliation OBJECTIVE: VS, labs, and imaging reviewed NAD, AAO, resting in bed NT ND +BS RRR s1/2 no mgr Lungs CTAB, w/ sym exp CN2-12 wnl, no fnd Normal mood, blunted affect Labs show leukocytosis, pseudohyponatremia, ABG with metabolic acidosis EKG reviewed Echo pending ASSESSMENT AND PLAN: Patient presents with DKA 2/2 noncompliance 1) DKA -Admit to ICU with Q1H fsg and trend BMP -DKA protocol; isotonic at 125/hr and insulin drip; change fluids when glucose wnl and feed/summation of insulin converted to long acting with SSI/turn off drip when gap closes. Consider adding premeal coverage. -Nutrition consult, DM educator consult. She does not have control of her disease and is at risk for severe life threatening complications should she fail to gain control. She needs to see endocrine TREVOR as an outpatient. -Followup A1c 2) Pseudohyponatremia -Likely due to massively elevated glucose; followup repeat BMP now. -Can check S/U-osm and U-Na if not improved 3) Hyperkalemia -Likely 2/2 dehydration; anticipate this dropping with the large amount of fluids, insulin drip with bolus, etc. Repeat BMP. No changes w/ EKG 4) Macrocytosis -Checking B12/folate 5) Elevated Alk Phos -Checking GGT, check RUQ US FENA -125NS -PRN replete -NPO -As tolerated Full Code
--- NOTE | 2018-06-25 03:38 | CONSULT ---
Consultation: REQUESTING PROVIDER:Dr. Bloom CONSULT REQUEST: We have been asked to medically evaluate this patient for DKA and admission to ICU. HISTORY OF PRESENT ILLNESS: 23 yo F with pmhx of IDDM presents with 2 day history of shortness of breath, nausea and vomiting. She states that for two days she has had intractable nausea and NBNB vomiting. She endorses associated chest pain. She describes sharp intermittent substernal chest pain exacerbated by cough or deep breath and relieved with rest. Pain started after several bouts of vomiting. She states that she has not been compliant with insulin for past two days and last insulin was 20 units of novolog 06/22/18. She does not check her sugars regularly and admittedly only takes her insulin when she feels "dehydrated". She denies any recent illness, dysuria, or fever/chills. ER COURSE: * EKG showed sinus tachycardia vent rate [address] or t wave abnormalities. * Labs showed BG 914, Bicarb 6, pH 7.01, AG 25 and 3+ ketones; DKA * elevated WBC and Alk phos. PMHx: IDDM PSHx: Social: Denies tobacco, ETOH or drug use. Allergies: NKDA REVIEW OF SYSTEMS: CONSTITUTIONAL: generalized weakness, malaise, loss of appetite Absent: fever, chills, diaphoresis,, weight change HEENT: Absent: rhinorrhea, nasal congestion, throat pain, throat swelling, difficulty swallowing, mouth swelling, ear pain, eye pain, visual changes CARDIOVASCULAR: chest pain Absent: , syncope, palpitations, irregular heart rate, lightheadedness, peripheral edema RESPIRATORY: shortness of breath,,hemoptysis Absent: cough, dyspnea with exertion, orthopnea, wheezing, stridor, GASTROINTESTINAL:abdominal pain,nausea, vomiting Absent: , abdominal distension, , diarrhea, constipation, melena, hematochezia GENITOURINARY: Absent: dysuria, frequency, urgency, hesitancy, hematuria, flank pain, genital pain MUSCULOSKELETAL: Absent: myalgia, arthralgia, joint swelling, back pain, neck pain SKIN: Absent: rash, itching, pallor HEMATOLOGIC/IMMUNOLOGIC: Absent: easy bleeding, easy bruising, lymphadenopathy, frequent infections ENDOCRINE: Absent: unexplained weight gain, unexplained weight loss, heat intolerance, cold intolerance NEUROLOGIC: Absent: headache, focal weakness or paresthesias, dizziness, unsteady gait, seizure, mental status changes, bladder or bowel incontinence PSYCHIATRIC: Absent: anxiety, depression, suicidal or homicidal ideation, hallucinations. PHYSICAL EXAMINATION Vital Signs - 24 hr 06/24/18 23:27 Temperature 98.9 F Pulse Rate 120 H Respiratory 20 Rate Blood Pressure 121/71 O2 Sat by Pulse 100 Oximetry (%) GENERAL: AAOx3, NAD, thin and frail HEAD: NCAT EYES:PERRLA, EOMI, sclera anicteric, conjunctiva clear. No lid lag. EARS, NOSE, THROAT: dry mucous membranes. NECK: Normal ROM, supple without lymphadenopathy, JVD, or masses. LUNGS: CTAB. No wheezes, and no crackles. No accessory muscle use. HEART: Tachycardic., normal S1 and S2 , mid systolic murmur LSB ABDOMEN: Soft, scaphoid, NTND,NABS, no guarding, no rebound, no masses. No hepatomegaly or splenomegaly. MUSCULOSKELETAL: Normal range of motion at all joints. No bony deformities or tenderness. No CVA tenderness. UPPER EXTREMITIES: 2+ pulses, warm, well-perfused. No cyanosis. No clubbing. Cap refill <2 seconds. No peripheral edema. LOWER EXTREMITIES: 2+ pulses, warm, well-perfused. No calf tenderness. No peripheral edema. NEUROLOGICAL: Cranial nerves II-XII intact. Normal speech. gait not observed. PSYCHIATRIC: Cooperative. Good eye contact. Appropriate mood and affect. Laboratory Results - last 24 hr 06/24/18 06/25/18 06/25/18 23:59 00:14 00:14 WBC Cancelled Corrected WBC (auto) Cancelled RBC Cancelled Hgb Cancelled Hct Cancelled MCV Cancelled MCH Cancelled MCHC Cancelled RDW Cancelled Plt Count Cancelled MPV Cancelled Absolute Neuts (auto) Cancelled Neutrophils % Cancelled Lymphocytes % Cancelled Monocytes % Cancelled Eosinophils % Cancelled Basophils % Cancelled Nucleated RBC % Cancelled Platelet Estimate Cancelled Platelet Comment Cancelled Puncture Site ABG pH ABG pCO2 at Pt Temp ABG pO2 at Pt Temp ABG HCO3 ABG O2 Sat (Measured) ABG O2 Content ABG Base Excess Rasheed Test VBG pH POC VBG pCO2 POC VBG pO2 Mixed VBG HCO3 O2 Delivery Device Oxygen Flow Rate PEEP Sodium Potassium Chloride Carbon Dioxide Anion Gap BUN Creatinine Creat Clearance w eGFR POC Glucometer > 600 Random Glucose Calcium Magnesium Total Bilirubin AST ALT Alkaline Phosphatase Total Protein Albumin Urine HCG, Qual Opiates Screen Negative Methadone Screen Negative Barbiturate Screen Negative Phencyclidine Screen Negative Ur Amphetamines Screen Negative MDMA (Ecstasy) Screen Negative Benzodiazepines Screen Negative Cocaine Screen Negative U Marijuana (THC) Screen Negative Acetone, Qual 06/25/18 06/25/18 06/25/18 00:14 00:14 00:14 WBC Corrected WBC (auto) RBC Hgb Hct MCV MCH MCHC RDW Plt Count MPV Absolute Neuts (auto) Neutrophils % Lymphocytes % Monocytes % Eosinophils % Basophils % Nucleated RBC % Platelet Estimate Platelet Comment Puncture Site ABG pH ABG pCO2 at Pt Temp ABG pO2 at Pt Temp ABG HCO3 ABG O2 Sat (Measured) ABG O2 Content ABG Base Excess Rasheed Test VBG pH 6.95 L* D POC VBG pCO2 23.9 L D POC VBG pO2 47.5 D Mixed VBG HCO3 5.0 L* O2 Delivery Device Oxygen Flow Rate PEEP Sodium 125 L Potassium 5.5 H Chloride 94 L Carbon Dioxide 6 L Anion Gap 25 H BUN 17 Creatinine 1.3 Creat Clearance w eGFR 49.91 POC Glucometer Random Glucose 914 H* Calcium 7.6 L Magnesium 2.7 H Total Bilirubin 0.4 AST 19 ALT 24 Alkaline Phosphatase 159 H Total Protein 7.6 Albumin 3.5 Urine HCG, Qual Negative Opiates Screen Methadone Screen Barbiturate Screen Phencyclidine Screen Ur Amphetamines Screen MDMA (Ecstasy) Screen Benzodiazepines Screen Cocaine Screen U Marijuana (THC) Screen Acetone, Qual Positive large 3+ H 06/25/18 06/25/18 06/25/18 00:30 01:00 02:00 WBC 18.2 H Corrected WBC (auto) RBC 4.16 Hgb 13.9 Hct 43.3 D MCV 104.0 H MCH 33.4 D MCHC 32.1 RDW 13.9 Plt Count 306 D MPV 9.2 Absolute Neuts (auto) 16.6 H Neutrophils % 90.8 H Lymphocytes % 3.5 L D Monocytes % 5.0 Eosinophils % 0.1 Basophils % 0.6 D Nucleated RBC % 0 Platelet Estimate Platelet Comment Puncture Site Left brachial ABG pH 7.01 L* ABG pCO2 at Pt Temp 19.2 L* ABG pO2 at Pt Temp 59.2 L ABG HCO3 4.6 L* ABG O2 Sat (Measured) 82.9 L ABG O2 Content 15.9 ABG Base Excess -26.5 L* Rasheed Test Positive VBG pH POC VBG pCO2 POC VBG pO2 Mixed VBG HCO3 O2 Delivery Device Room air Oxygen Flow Rate No PEEP 0.0 Sodium Cancelled Potassium Cancelled Chloride Cancelled Carbon Dioxide Cancelled Anion Gap Cancelled BUN Cancelled Creatinine Cancelled Creat Clearance w eGFR Cancelled POC Glucometer Random Glucose Cancelled Calcium Cancelled Magnesium Total Bilirubin Cancelled AST Cancelled ALT Cancelled Alkaline Phosphatase Cancelled Total Protein Cancelled Albumin Cancelled Urine HCG, Qual Opiates Screen Methadone Screen Barbiturate Screen Phencyclidine Screen Ur Amphetamines Screen MDMA (Ecstasy) Screen Benzodiazepines Screen Cocaine Screen U Marijuana (THC) Screen Acetone, Qual Cancelled Active Medications Generic Name Dose Route Start Last Admin Trade Name Freq PRN Reason Stop Dose Admin Chlorhexidine Gluconate 1 applic 06/25/18 22:00 Hibiclens For Decolonization - TP HS KATHRYN Heparin Sodium (Porcine) 5,000 unit 06/25/18 06:00 Heparin - SQ TID [facility] Insulin Human Regular 100 100 mls @ 4.45 mls/hr 06/25/18 01:30 06/25/18 02:25 units/ Sodium Chloride IVPB 0.1 units/kg/hr TITR KATHRYN 4.45 mls/hr Administration Protocol 0.1 UNITS/KG/HR Sodium Chloride 1,000 mls @ 125 mls/hr 06/25/18 02:45 Normal Saline - IV ASDIR [facility] Mupirocin 1 applic 06/25/18 10:00 Bactroban Ointment (For Decolonization) - NS 06/30/18 09:59 BID KATHRYN ASSESSMENT/PLAN: 23 yo F with pmhx of IDDM presents with 2 day history of shortness of breath, nausea and vomiting admitted to ICU for further management of DKA. NEURO: * awake and alert. * no active problems * Will monitor for change in mental status. CV: * Chest pain most likely 2/2 continuous vomiting. * Low probability for ACS. * Monitor BP PULM: * Complained of hemoptysis - CT chest to r/o acute pulmonary pathology. * supplemental O2 PRN * Maintain Spo2>90% ENDO: * meets criteria for DKA * Given bolus of regular insulin and started on insulin drip in ER. * NS @ 125 ml.hr. * Will monitor BMP Q4H and FSG Q1H * monitor K and add to fluids once drops below 5.3 * Will switch fluids to D5 1/5NS once sugar reaches 200mg/dl * Once AG closes can transition to SQ short acting insulin; continue insulin drip for 1-2 hrs. * Once eating ISS ACHS and basal insulin. RENAL: * hyponatremia 2/2 elevated glucose. corrected 138 * Will continue with NS @125 ml/hr * ANISHA most likely pre-renal 2/2 volume depletion. * BMP Q4H ID: * Leukocytosis most likely reactive to acute stress. * Pneumonia panel sent. * UA and blood cultures sent. * Monitor off Abx for now. * CT chest ordered for hemoptysis. GI: * NPO until AG closes. * ADA diet once eating. * elevated Alk phos; GGT and abdominal US pending * Zofran for nausea. FEN: * NS @ 125ml/hr * monitor sodium and potassium and replete PRN * NPO until AG closes. PPx: * Heparin 5000 units SQ TID Dispo: FULL CODE-We will continue to follow the patient in ICU. Thank you for this consultative opportunity. Visit type - Emergency Visit Emergency Visit: Yes Care time: The patient presented to the Emergency Department on the above date and was hospitalized for further evaluation of their emergent condition. - New Patient This patient is new to me today: Yes Date on this admission: 06/25/18 - Critical Care Critical Care patient: Yes Total Critical Care Time (in minutes): 42 Critical Care Statement: The care of this patient involved high complexity decision making to prevent further life threatening deterioration of the patient 's condition and/or to evaluate & treat vital organ system(s) failure or risk of failure.
[2018-06-25 04:09] VITALS: BMI 14.6
[2018-06-25] MEDS: HEPARIN NA (PORCINE) 5,000 UNITS/ML 1ML VIAL SQ SCH ×3 (05:21→21:19)
[2018-06-25] MEDS ORDERED: D5-1/2NS+20 MEQ KCL - 20 MEQ/1,000 ML INFUS.BAG IV SCH ×2 (05:30→06:45)
[2018-06-25 06:32] LABS: BASO % 0.2 % (0-2.0); HEMOGLOBIN 12.8 GM/dL (10.7-15.3); MCH 32.3 pg (25.7-33.7); MCHC 33.8 g/dl (32.0-36.0); MEAN CELL VOLUME 95.6 fl (80-96); MEAN PLT VOLUME 8.5 fl (7.5-11.1); MONO % 6.4 % (3.8-10.2); NEUT % 74.4 % (42.8-82.8); PLATELET COUNT 346 K/MM3 (134-434); RBC 3.97 M/mm3 (3.60-5.2); RDW 12.7 % (11.6-15.6); WHITE BLOOD COUNT 16.6 K/mm3 (4.0-10.0)
--- NOTE | 2018-06-25 07:22 | PN ---
Physical Exam: SUBJECTIVE: Patient seen and examined at bedside this morning. She endorses that she last took 20 units Insulin two days ago. She admits that she is not compliant with her insulin, and takes it only when she feels significantly thirsty or sick. Today she currently feels hungry, denies subjective fevers chills, chest pain or palpitations, abdominal pain, nausea, vomiting. OBJECTIVE: Vital Signs Period Temp Pulse Resp BP Sys/Steele Pulse Ox Last 24 Hr 97.9 F-98.9 F 102-120 18-20 97-121/64-79 100-100 GENERAL: The patient is awake, alert, and fully oriented, in no acute distress. HEAD: Normocephalic, atrauamtic EYES: PERRL, extraocular movements intact, sclera anicteric, conjunctiva clear. ENT: Oropharynx clear without exudates, moist mucous membranes. NECK: Supple without lymphadenopathy, or JVD. LUNGS: Breath sounds equal, clear to auscultation bilaterally. No wheezes, no crackles. No accessory muscle use. HEART: Regular rate and rhythm, S1, S2 without murmur, rub or gallop. ABDOMEN: Soft, nontender to light and deep palpation X4 quadrants, nondistended. Normoactive bowel sounds X4 quadrants. No guarding, no rebound tenderness. No hepatomegaly palpated or percussed. EXTREMITIES: 2+ radial, dorsalis pedis pulses bilaterally, warm, well-perfused. No edema bilateral lower extremities. NEUROLOGICAL: Cranial nerves II through XII grossly intact. Normal speech. PSYCH: Normal mood, normal affect upon my encounter. SKIN: Warm, dry. Laboratory Results - last 24 hr 06/24/18 06/25/18 06/25/18 23:59 00:14 00:14 WBC Cancelled Corrected WBC (auto) Cancelled RBC Cancelled Hgb Cancelled Hct Cancelled MCV Cancelled MCH Cancelled MCHC Cancelled RDW Cancelled Plt Count Cancelled MPV Cancelled Absolute Neuts (auto) Cancelled Neutrophils % Cancelled Lymphocytes % Cancelled Monocytes % Cancelled Eosinophils % Cancelled Basophils % Cancelled Nucleated RBC % Cancelled Platelet Estimate Cancelled Platelet Comment Cancelled Puncture Site ABG pH ABG pCO2 at Pt Temp ABG pO2 at Pt Temp ABG HCO3 ABG O2 Sat (Measured) ABG O2 Content ABG Base Excess Rasheed Test VBG pH POC VBG pCO2 POC VBG pO2 Mixed VBG HCO3 O2 Delivery Device Oxygen Flow Rate PEEP Sodium Potassium Chloride Carbon Dioxide Anion Gap BUN Creatinine Creat Clearance w eGFR POC Glucometer > 600 Random Glucose Calcium Magnesium Total Bilirubin AST ALT Alkaline Phosphatase Total Protein Albumin Urine HCG, Qual Opiates Screen Negative Methadone Screen Negative Barbiturate Screen Negative Phencyclidine Screen Negative Ur Amphetamines Screen Negative MDMA (Ecstasy) Screen Negative Benzodiazepines Screen Negative Cocaine Screen Negative U Marijuana (THC) Screen Negative Acetone, Qual 06/25/18 06/25/18 06/25/18 00:14 00:14 00:14 WBC Corrected WBC (auto) RBC Hgb Hct MCV MCH MCHC RDW Plt Count MPV Absolute Neuts (auto) Neutrophils % Lymphocytes % Monocytes % Eosinophils % Basophils % Nucleated RBC % Platelet Estimate Platelet Comment Puncture Site ABG pH ABG pCO2 at Pt Temp ABG pO2 at Pt Temp ABG HCO3 ABG O2 Sat (Measured) ABG O2 Content ABG Base Excess Rasheed Test VBG pH 6.95 L* D POC VBG pCO2 23.9 L D POC VBG pO2 47.5 D Mixed VBG HCO3 5.0 L* O2 Delivery Device Oxygen Flow Rate PEEP Sodium 125 L Potassium 5.5 H Chloride 94 L Carbon Dioxide 6 L Anion Gap 25 H BUN 17 Creatinine 1.3 Creat Clearance w eGFR 49.91 POC Glucometer Random Glucose 914 H* Calcium 7.6 L Magnesium 2.7 H Total Bilirubin 0.4 AST 19 ALT 24 Alkaline Phosphatase 159 H Total Protein 7.6 Albumin 3.5 Urine HCG, Qual Negative Opiates Screen Methadone Screen Barbiturate Screen Phencyclidine Screen Ur Amphetamines Screen MDMA (Ecstasy) Screen Benzodiazepines Screen Cocaine Screen U Marijuana (THC) Screen Acetone, Qual Positive large 3+ H 06/25/18 06/25/18 06/25/18 00:30 01:00 02:00 WBC 18.2 H Corrected WBC (auto) RBC 4.16 Hgb 13.9 Hct 43.3 D MCV 104.0 H MCH 33.4 D MCHC 32.1 RDW 13.9 Plt Count 306 D MPV 9.2 Absolute Neuts (auto) 16.6 H Neutrophils % 90.8 H Lymphocytes % 3.5 L D Monocytes % 5.0 Eosinophils % 0.1 Basophils % 0.6 D Nucleated RBC % 0 Platelet Estimate Platelet Comment Puncture Site Left brachial ABG pH 7.01 L* ABG pCO2 at Pt Temp 19.2 L* ABG pO2 at Pt Temp 59.2 L ABG HCO3 4.6 L* ABG O2 Sat (Measured) 82.9 L ABG O2 Content 15.9 ABG Base Excess -26.5 L* Rasheed Test Positive VBG pH POC VBG pCO2 POC VBG pO2 Mixed VBG HCO3 O2 Delivery Device Room air Oxygen Flow Rate No PEEP 0.0 Sodium Cancelled Potassium Cancelled Chloride Cancelled Carbon Dioxide Cancelled Anion Gap Cancelled BUN Cancelled Creatinine Cancelled Creat Clearance w eGFR Cancelled POC Glucometer Random Glucose Cancelled Calcium Cancelled Magnesium Total Bilirubin Cancelled AST Cancelled ALT Cancelled Alkaline Phosphatase Cancelled Total Protein Cancelled Albumin Cancelled Urine HCG, Qual Opiates Screen Methadone Screen Barbiturate Screen Phencyclidine Screen Ur Amphetamines Screen MDMA (Ecstasy) Screen Benzodiazepines Screen Cocaine Screen U Marijuana (THC) Screen Acetone, Qual Cancelled 06/25/18 06/25/18 06/25/18 03:37 04:33 05:26 WBC Corrected WBC (auto) RBC Hgb Hct MCV MCH MCHC RDW Plt Count MPV Absolute Neuts (auto) Neutrophils % Lymphocytes % Monocytes % Eosinophils % Basophils % Nucleated RBC % Platelet Estimate Platelet Comment Puncture Site ABG pH ABG pCO2 at Pt Temp ABG pO2 at Pt Temp ABG HCO3 ABG O2 Sat (Measured) ABG O2 Content ABG Base Excess Rasheed Test VBG pH POC VBG pCO2 POC VBG pO2 Mixed VBG HCO3 O2 Delivery Device Oxygen Flow Rate PEEP Sodium Potassium Chloride Carbon Dioxide Anion Gap BUN Creatinine Creat Clearance w eGFR POC Glucometer 366 202 124 Random Glucose Calcium Magnesium Total Bilirubin AST ALT Alkaline Phosphatase Total Protein Albumin Urine HCG, Qual Opiates Screen Methadone Screen Barbiturate Screen Phencyclidine Screen Ur Amphetamines Screen MDMA (Ecstasy) Screen Benzodiazepines Screen Cocaine Screen U Marijuana (THC) Screen Acetone, Qual 06/25/18 06/25/18 05:30 06:28 WBC 16.6 H Corrected WBC (auto) RBC 3.97 Hgb 12.8 Hct 38.0 MCV 95.6 D MCH 32.3 MCHC 33.8 RDW 12.7 Plt Count 346 MPV 8.5 Absolute Neuts (auto) 12.4 H Neutrophils % 74.4 Lymphocytes % 19.0 D Monocytes % 6.4 Eosinophils % 0.0 D Basophils % 0.2 Nucleated RBC % 0 Platelet Estimate Platelet Comment Puncture Site ABG pH ABG pCO2 at Pt Temp ABG pO2 at Pt Temp ABG HCO3 ABG O2 Sat (Measured) ABG O2 Content ABG Base Excess Rasheed Test VBG pH POC VBG pCO2 POC VBG pO2 Mixed VBG HCO3 O2 Delivery Device Oxygen Flow Rate PEEP Sodium Potassium Chloride Carbon Dioxide Anion Gap BUN Creatinine Creat Clearance w eGFR POC Glucometer 94 Random Glucose Calcium Magnesium Total Bilirubin AST ALT Alkaline Phosphatase Total Protein Albumin Urine HCG, Qual Opiates Screen Methadone Screen Barbiturate Screen Phencyclidine Screen Ur Amphetamines Screen MDMA (Ecstasy) Screen Benzodiazepines Screen Cocaine Screen U Marijuana (THC) Screen Acetone, Qual Active Medications Generic Name Dose Route Start Last Admin Trade Name Freq PRN Reason Stop Dose Admin Chlorhexidine Gluconate 1 applic 06/25/18 22:00 Hibiclens For Decolonization - TP HS KATHRYN Heparin Sodium (Porcine) 5,000 unit 06/25/18 06:00 06/25/18 05:21 Heparin - SQ 5,000 unit TID [facility] Administration Insulin Human Regular 100 100 mls @ 4.45 mls/hr 06/25/18 01:30 06/25/18 02:25 units/ Sodium Chloride IVPB 0.1 units/kg/hr TITR KATHRYN 4.45 mls/hr Administration Protocol 0.1 UNITS/KG/HR Potassium Chloride/Dextrose/Sod Cl 20 meq in 1,000 mls @ 125 mls/hr 06/25/18 05:30 06/25/18 06:40 D5-1/2ns+20 Meq Kcl - IV 125 mls/hr ASDIR [facility] Administration Influenza Virus Vaccine Quadrival 60 mcg 06/25/18 10:00 Flulaval Quad [id number] IM 06/25/18 10:01 .ONCE ONE Mupirocin 1 applic 06/25/18 10:00 Bactroban Ointment (For Decolonization) - NS 06/30/18 09:59 BID [facility] Pneumococcal 13-Valent Conj Vacc 0.5 ml 06/25/18 10:00 Prevnar 13 Syringe - IM 06/25/18 10:01 .ONCE ONE ASSESSMENT/PLAN: Patient is a 23 year old female with history of insulin dependent diabetes mellitus, admitted to ICU for diabetic ketoacidosis. Cardiac -Patient endorsed chest pain exacerbated by vomiting. -EKG shows sinus tachycardia without ischemic changes. -Troponin 0.02 -Cardiac telemetry monitoring Pulmonary -Patient endorses one episode of blood tinged sputum with cough. Likely secondary to viral URI. -Follow chest radiograph. -Monitoring without antibiotics at this time -Maintain oxygen saturation greater than 90% Endocrine Diabetic ketoacidosis -secondary to Insulin non-compliance -D5 1/2 NS with 20meq KCL at 125mL/ hour -Patient was hypoglycemic to 64, and 69 upon repeat fingerstick BGM- patient received 3 units Dextrose 50%. -Blood glucose 158 on BMP. D/C insulin drip -Anion gap 25 upon admission -> 12 -> 5 -Begin Levemir 10 units subq daily -Insulin sliding scale ACHS -Fingerstick blood glucose monitoring Q1 hour Gastrointestinal -Begin diabetic diet, as anion gap has closed, and blood sugars are now less than 200. -Alkaline phosphatase 159.Will obtain GGT. -Right upper quadrant US to evaluate for pathology, obstruction. Renal ANISHA- resolved -Likely secondary to dehydration -IV normal saline at 50mL/ hour Hypophosphatemia -Replete with 25mmol potassium- phosphate Hyponatremia -resolved -Likely secondary to excess glucose. Hematologic Leukocytosis -May be reactive secondary to acute DKA, however will rule out possible infectious etiology -Chest radiography to evaluate for pathology -Influenza A, B swab -Follow UA Macrocytosis -Follow B12, Folate FEN -IV Normal saline at 50mL/ hour -Hyponatremia, hyperkalemia resolved. Follow CMP, replete as necessary -Diabetic diet Prophylaxis -Heparin 5000u subq TID Disposition -Continue care in ICU Visit type - Emergency Visit Emergency Visit: Yes ED Registration Date: 06/25/18 Care time: The patient presented to the Emergency Department on the above date and was hospitalized for further evaluation of their emergent condition. - New Patient This patient is new to me today: Yes Date on this admission: 06/25/18 - Critical Care Critical Care patient: Yes Total Critical Care Time (in minutes): 35 Critical Care Statement: The care of this patient involved high complexity decision making to prevent further life threatening deterioration of the patient 's condition and/or to evaluate & treat vital organ system(s) failure or risk of failure. - Discharge Referral Referred to [facility] No
[2018-06-25] MEDS ORDERED: DEXTROSE 50%-WATER 25 GM/50 ML DISP.SYRIN ONE ×2 (07:44→12:06)
[2018-06-25 08:05] LABS: ANION GAP 12 MMOL/L (8-16); BLOOD UREA NITROGEN 9 mg/dL (7-18); CALCIUM 7.3 mg/dL (8.5-10.1); CHLORIDE 114 mmol/L (98-107); CO2 13 mmol/L (21-32); CREATININE 0.8 mg/dL (0.55-1.3); GAMMA GLUTAMYL TRANSPEPTIDASE 101 U/L (5-85); GLUCOSE,RANDOM 131 mg/dL (74-106); MAGNESIUM 2.2 mg/dL (1.8-2.4); PHOSPHOROUS 2.1 mg/dL (2.5-4.9); POTASSIUM 3.8 mmol/L (3.5-5.1); SODIUM 139 mmol/L (136-145)
[2018-06-25] MEDS ORDERED: DEXTROSE 50%-WATER - 25 GM/50 ML VIAL IVPUSH ONE ×3 (08:10→11:58)
[2018-06-25] MEDS ORDERED: INSULIN (LEVEMIR) 100 UNITS/ML UNITS SQ ONE (08:40)
[2018-06-25] MEDS ORDERED: FLU VACCINE QUAD 60 MCG/0.5 ML (MDV 18-19) IM ONE (10:00)
[2018-06-25] MEDS ORDERED: MUPIROCIN 2% TOPICAL OINTMENT FOR DECOLONIZATION NS SCH (10:00)
[2018-06-25] MEDS ORDERED: PNEUMOC 13-VAL CONJ-DIP CRM/PF 0.5 ML DISP.SYRIN IM ONE (10:00)
[2018-06-25 11:08] LABS: ANION GAP 5 MMOL/L (8-16); BLOOD UREA NITROGEN 7 mg/dL (7-18); CHLORIDE 116 mmol/L (98-107); CO2 16 mmol/L (21-32); CREATININE 0.8 mg/dL (0.55-1.3); GLUCOSE,RANDOM 158 mg/dL (74-106); POTASSIUM 3.4 mmol/L (3.5-5.1); SODIUM 137 mmol/L (136-145)
--- NOTE | 2018-06-25 11:24 | PN ---
Teaching Attending Note Name of Resident: James Shaffer ATTENDING PHYSICIAN STATEMENT I saw and evaluated the patient. I reviewed the resident's note and discussed the case with the resident. I agree with the resident's findings and plan as documented. SUBJECTIVE: Patient seen and examined in the ICU. Awake and alert. Remains on IV Insulin drip. (Bicarb 13, AG 12). One episode of blood tinged sputum. No judy hemoptysis. 2 episodes of hypoglycemia and was given D50 IVP. Intake & Output 06/22/18 06/23/18 06/24/18 06/25/18 23:59 23:59 23:59 23:59 Intake Total 452.9 Balance 452.9 Weight 98 lb 1.691 oz 85 lb Last Vital Signs Temp Pulse Resp BP Pulse Ox 98.8 F 68 17 90/58 L 97 06/25/18 10:00 06/25/18 10:00 06/25/18 10:00 06/25/18 10:00 06/25/18 09:00 Active Medications Chlorhexidine Gluconate (Hibiclens For Decolonization -) 1 applic TP HS [facility] Heparin Sodium (Porcine) (Heparin -) 5,000 unit SQ TID [facility] Last Admin: 06/25/18 05:21 Dose: 5,000 unit Insulin Human Regular 100 (units/ Sodium Chloride) 100 mls @ 4.45 mls/hr IVPB TITR [facility]; Protocol Last Titration: 06/25/18 08:20 Dose: 0.1 units/kg/hr, 4.45 mls/hr Potassium Chloride/Dextrose/Sod Cl (D5-1/2ns+20 Meq Kcl -) 20 meq in 1,000 mls @ 125 mls/hr IV ASDIR [facility] Last Admin: 06/25/18 06:40 Dose: 125 mls/hr Mupirocin (Bactroban Ointment (For Decolonization) -) 1 applic NS BID [facility] Stop: 06/30/18 09:59 GENERAL: AAOx3, NAD, thin and frail HEAD: NCAT EYES:PERRLA, EOMI, sclera anicteric, conjunctiva clear. No lid lag. EARS, NOSE, THROAT: dry mucous membranes. NECK: Normal ROM, supple without lymphadenopathy, JVD, or masses. LUNGS: CTAB. No wheezes, and no crackles. No accessory muscle use. HEART: Tachycardic., normal S1 and S2 , mid systolic murmur LSB ABDOMEN: Soft, scaphoid, NTND,NABS, no guarding, no rebound, no masses. No hepatomegaly or splenomegaly. MUSCULOSKELETAL: Normal range of motion at all joints. No bony deformities or tenderness. No CVA tenderness. UPPER EXTREMITIES: 2+ pulses, warm, well-perfused. No cyanosis. No clubbing. Cap refill <2 seconds. No peripheral edema. LOWER EXTREMITIES: 2+ pulses, warm, well-perfused. No calf tenderness. No peripheral edema. NEUROLOGICAL: Non-focal. PSYCHIATRIC: Cooperative. Good eye contact. Appropriate mood and affect. Laboratory Results - last 24 hr 06/24/18 06/25/18 06/25/18 23:59 00:14 00:14 WBC Cancelled Corrected WBC (auto) Cancelled RBC Cancelled Hgb Cancelled Hct Cancelled MCV Cancelled MCH Cancelled MCHC Cancelled RDW Cancelled Plt Count Cancelled MPV Cancelled Absolute Neuts (auto) Cancelled Neutrophils % Cancelled Lymphocytes % Cancelled Monocytes % Cancelled Eosinophils % Cancelled Basophils % Cancelled Nucleated RBC % Cancelled Platelet Estimate Cancelled Platelet Comment Cancelled Puncture Site ABG pH ABG pCO2 at Pt Temp ABG pO2 at Pt Temp ABG HCO3 ABG O2 Sat (Measured) ABG O2 Content ABG Base Excess Rasheed Test VBG pH POC VBG pCO2 POC VBG pO2 Mixed VBG HCO3 O2 Delivery Device Oxygen Flow Rate PEEP Sodium Potassium Chloride Carbon Dioxide Anion Gap BUN Creatinine Creat Clearance w eGFR POC Glucometer > 600 Random Glucose Calcium Magnesium Total Bilirubin AST ALT Alkaline Phosphatase Total Protein Albumin Urine HCG, Qual Opiates Screen Negative Methadone Screen Negative Barbiturate Screen Negative Phencyclidine Screen Negative Ur Amphetamines Screen Negative MDMA (Ecstasy) Screen Negative Benzodiazepines Screen Negative Cocaine Screen Negative U Marijuana (THC) Screen Negative Acetone, Qual 06/25/18 06/25/18 06/25/18 00:14 00:14 00:14 WBC Corrected WBC (auto) RBC Hgb Hct MCV MCH MCHC RDW Plt Count MPV Absolute Neuts (auto) Neutrophils % Lymphocytes % Monocytes % Eosinophils % Basophils % Nucleated RBC % Platelet Estimate Platelet Comment Puncture Site ABG pH ABG pCO2 at Pt Temp ABG pO2 at Pt Temp ABG HCO3 ABG O2 Sat (Measured) ABG O2 Content ABG Base Excess Rasheed Test VBG pH 6.95 L* D POC VBG pCO2 23.9 L D POC VBG pO2 47.5 D Mixed VBG HCO3 5.0 L* O2 Delivery Device Oxygen Flow Rate PEEP Sodium 125 L Potassium 5.5 H Chloride 94 L Carbon Dioxide 6 L Anion Gap 25 H BUN 17 Creatinine 1.3 Creat Clearance w eGFR 49.91 POC Glucometer Random Glucose 914 H* Calcium 7.6 L Magnesium 2.7 H Total Bilirubin 0.4 AST 19 ALT 24 Alkaline Phosphatase 159 H Total Protein 7.6 Albumin 3.5 Urine HCG, Qual Negative Opiates Screen Methadone Screen Barbiturate Screen Phencyclidine Screen Ur Amphetamines Screen MDMA (Ecstasy) Screen Benzodiazepines Screen Cocaine Screen U Marijuana (THC) Screen Acetone, Qual Positive large 3+ H 06/25/18 06/25/18 06/25/18 00:30 01:00 02:00 WBC 18.2 H Corrected WBC (auto) RBC 4.16 Hgb 13.9 Hct 43.3 D MCV 104.0 H MCH 33.4 D MCHC 32.1 RDW 13.9 Plt Count 306 D MPV 9.2 Absolute Neuts (auto) 16.6 H Neutrophils % 90.8 H Lymphocytes % 3.5 L D Monocytes % 5.0 Eosinophils % 0.1 Basophils % 0.6 D Nucleated RBC % 0 Platelet Estimate Platelet Comment Puncture Site Left brachial ABG pH 7.01 L* ABG pCO2 at Pt Temp 19.2 L* ABG pO2 at Pt Temp 59.2 L ABG HCO3 4.6 L* ABG O2 Sat (Measured) 82.9 L ABG O2 Content 15.9 ABG Base Excess -26.5 L* Rasheed Test Positive VBG pH POC VBG pCO2 POC VBG pO2 Mixed VBG HCO3 O2 Delivery Device Room air Oxygen Flow Rate No PEEP 0.0 Sodium Cancelled Potassium Cancelled Chloride Cancelled Carbon Dioxide Cancelled Anion Gap Cancelled BUN Cancelled Creatinine Cancelled Creat Clearance w eGFR Cancelled POC Glucometer Random Glucose Cancelled Calcium Cancelled Magnesium Total Bilirubin Cancelled AST Cancelled ALT Cancelled Alkaline Phosphatase Cancelled Total Protein Cancelled Albumin Cancelled Urine HCG, Qual Opiates Screen Methadone Screen Barbiturate Screen Phencyclidine Screen Ur Amphetamines Screen MDMA (Ecstasy) Screen Benzodiazepines Screen Cocaine Screen U Marijuana (THC) Screen Acetone, Qual Cancelled ASSESSMENT/PLAN: DKA requiring IV Insulin drip DM Suspected Viral URI as the etiology of the blood tinged sputum IV Insulin per protocol O2 as needed D/C CT chest Check CXR Strict I & O IVF Monitor BMP Follow CMP PO as tolerated VTE prophylaxis ICU monitoring Dr Rangel Critical care time spent in reviewing chart, evaluating patient and formulating plan - 36 minutes.
[2018-06-25 11:33] LABS: PHOSPHOROUS 1.2 mg/dL (2.5-4.9)
[2018-06-25] MEDS ORDERED: INSULIN (NOVOLOG) ASPART 100 UNITS/ML 10ML VIAL ONE (12:06)
[2018-06-25] MEDS ORDERED: POTASSIUM PHOSPHATE 40 MM in SODIUM CHLORIDE 250 ML IVPB ONE (12:10)
--- NOTE | 2018-06-25 12:34 | PN ---
Teaching Attending Note Name of Resident: Caprice Colbert ATTENDING PHYSICIAN STATEMENT I saw and evaluated the patient. I reviewed the resident's note and discussed the case with the resident. I agree with the resident's findings and plan as documented. SUBJECTIVE: denies any OSb, CP, fevers, or chills. denies vaginal bleeding but admitted to resident with intermittent bleeding. reported feeling hot at home few days ag. reports no compliance with meds and endocrine f/u. vomited with no abd pain or recurrent sx . feels better today denies any intentional weight loss. poor appetite at times. most of the time sugar is > 400 but in am sometimes, hypoglycemia to 70s with sx. OBJECTIVE: NAD , awake, cooperative. mmm Lungs: CTAB Abd: soft, NT, ND , NL Bs . ext : no edema , or erythema. ASSESSMENT AND PLAN: 23 y/o lady with h/o Dm diagnosed 2 years ago who presented with N/V and was found to have DKA. 1- DKA : trigger is probably non compliance. No signs of infection so far. AG closed, now on SQ insulin and SSI hypoglycemic this morning, s/p D50 then D5 1/2 NS+ kcl - monitor sugar and switch IVF to NS when sugar is elevated. - SSI and SQ levemir - monitor and replete electrolytes. 2- Leukocytosis, coul dbe stress reaction . - check UA - chest xray with no infection Transfer out of ICU.
[2018-06-25] MEDS ORDERED: INSULIN (LEVEMIR) 100 UNITS/ML UNITS SQ SCH (13:00)
--- NOTE | 2018-06-25 13:27 | PN ---
Physical Exam: SUBJECTIVE: Patient seen and examined at bedside- no acute events overnight; patient is no longer having chest pain/nausea or vomiting- her anion gap has closed; she is now on sub Q insulin and eating. this was her first episode of DKA OBJECTIVE: Vital Signs Period Temp Pulse Resp BP Sys/Steele Pulse Ox Last 24 Hr 97.9 F-98.9 F 68-120 17-20 90-121/58-79 97-100 GENERAL: The patient is awake, alert, and fully oriented, in no acute distress. EYES: EOMI; PEERLA; no scleral icterus. NECK: no JVD, no lymphadenopathy LUNGS: CTA B/L ; no rales, rhonchi or wheezing HEART: Regular rate and rhythm, S1, S2 without murmur, rub or gallop. ABDOMEN: Soft, nontender, nondistended, normoactive bowel sounds, no guarding, no rebound, no hepatosplenomegaly, no masses. EXTREMITIES: 2+ pulses, warm, well-perfused, no edema. NEUROLOGICAL: Cranial nerves II through XII grossly intact. Normal speech, gait not observed. PSYCH: Normal mood, normal affect. SKIN: Warm, dry, normal turgor, no rashes or lesions noted Laboratory Results - last 24 hr 06/24/18 06/25/18 06/25/18 23:59 00:14 00:14 WBC Cancelled Corrected WBC (auto) Cancelled RBC Cancelled Hgb Cancelled Hct Cancelled MCV Cancelled MCH Cancelled MCHC Cancelled RDW Cancelled Plt Count Cancelled MPV Cancelled Absolute Neuts (auto) Cancelled Neutrophils % Cancelled Lymphocytes % Cancelled Monocytes % Cancelled Eosinophils % Cancelled Basophils % Cancelled Nucleated RBC % Cancelled Platelet Estimate Cancelled Platelet Comment Cancelled Puncture Site ABG pH ABG pCO2 at Pt Temp ABG pO2 at Pt Temp ABG HCO3 ABG O2 Sat (Measured) ABG O2 Content ABG Base Excess Rasheed Test VBG pH POC VBG pCO2 POC VBG pO2 Mixed VBG HCO3 O2 Delivery Device Oxygen Flow Rate PEEP Sodium Potassium Chloride Carbon Dioxide Anion Gap BUN Creatinine Creat Clearance w eGFR POC Glucometer > 600 Random Glucose Hemoglobin A1c % Calcium Phosphorus Magnesium Total Bilirubin GGT AST ALT Alkaline Phosphatase Troponin I Total Protein Albumin Vitamin B12 Serum Folate Urine HCG, Qual Opiates Screen Negative Methadone Screen Negative Barbiturate Screen Negative Phencyclidine Screen Negative Ur Amphetamines Screen Negative MDMA (Ecstasy) Screen Negative Benzodiazepines Screen Negative Cocaine Screen Negative U Marijuana (THC) Screen Negative Acetone, Qual 06/25/18 06/25/18 06/25/18 00:14 00:14 00:14 WBC Corrected WBC (auto) RBC Hgb Hct MCV MCH MCHC RDW Plt Count MPV Absolute Neuts (auto) Neutrophils % Lymphocytes % Monocytes % Eosinophils % Basophils % Nucleated RBC % Platelet Estimate Platelet Comment Puncture Site ABG pH ABG pCO2 at Pt Temp ABG pO2 at Pt Temp ABG HCO3 ABG O2 Sat (Measured) ABG O2 Content ABG Base Excess Rasheed Test VBG pH 6.95 L* D POC VBG pCO2 23.9 L D POC VBG pO2 47.5 D Mixed VBG HCO3 5.0 L* O2 Delivery Device Oxygen Flow Rate PEEP Sodium 125 L Potassium 5.5 H Chloride 94 L Carbon Dioxide 6 L Anion Gap 25 H BUN 17 Creatinine 1.3 Creat Clearance w eGFR 49.91 POC Glucometer Random Glucose 914 H* Hemoglobin A1c % Calcium 7.6 L Phosphorus Magnesium 2.7 H Total Bilirubin 0.4 GGT AST 19 ALT 24 Alkaline Phosphatase 159 H Troponin I Total Protein 7.6 Albumin 3.5 Vitamin B12 Serum Folate Urine HCG, Qual Negative Opiates Screen Methadone Screen Barbiturate Screen Phencyclidine Screen Ur Amphetamines Screen MDMA (Ecstasy) Screen Benzodiazepines Screen Cocaine Screen U Marijuana (THC) Screen Acetone, Qual Positive large 3+ H 06/25/18 06/25/18 06/25/18 00:30 01:00 02:00 WBC 18.2 H Corrected WBC (auto) RBC 4.16 Hgb 13.9 Hct 43.3 D MCV 104.0 H MCH 33.4 D MCHC 32.1 RDW 13.9 Plt Count 306 D MPV 9.2 Absolute Neuts (auto) 16.6 H Neutrophils % 90.8 H Lymphocytes % 3.5 L D Monocytes % 5.0 Eosinophils % 0.1 Basophils % 0.6 D Nucleated RBC % 0 Platelet Estimate Platelet Comment Puncture Site Left brachial ABG pH 7.01 L* ABG pCO2 at Pt Temp 19.2 L* ABG pO2 at Pt Temp 59.2 L ABG HCO3 4.6 L* ABG O2 Sat (Measured) 82.9 L ABG O2 Content 15.9 ABG Base Excess -26.5 L* Rasheed Test Positive VBG pH POC VBG pCO2 POC VBG pO2 Mixed VBG HCO3 O2 Delivery Device Room air Oxygen Flow Rate No PEEP 0.0 Sodium Cancelled Potassium Cancelled Chloride Cancelled Carbon Dioxide Cancelled Anion Gap Cancelled BUN Cancelled Creatinine Cancelled Creat Clearance w eGFR Cancelled POC Glucometer Random Glucose Cancelled Hemoglobin A1c % Calcium Cancelled Phosphorus Magnesium Total Bilirubin Cancelled GGT AST Cancelled ALT Cancelled Alkaline Phosphatase Cancelled Troponin I Total Protein Cancelled Albumin Cancelled Vitamin B12 Serum Folate Urine HCG, Qual Opiates Screen Methadone Screen Barbiturate Screen Phencyclidine Screen Ur Amphetamines Screen MDMA (Ecstasy) Screen Benzodiazepines Screen Cocaine Screen U Marijuana (THC) Screen Acetone, Qual Cancelled 06/25/18 06/25/18 06/25/18 03:37 04:33 05:26 WBC Corrected WBC (auto) RBC Hgb Hct MCV MCH MCHC RDW Plt Count MPV Absolute Neuts (auto) Neutrophils % Lymphocytes % Monocytes % Eosinophils % Basophils % Nucleated RBC % Platelet Estimate Platelet Comment Puncture Site ABG pH ABG pCO2 at Pt Temp ABG pO2 at Pt Temp ABG HCO3 ABG O2 Sat (Measured) ABG O2 Content ABG Base Excess Rasheed Test VBG pH POC VBG pCO2 POC VBG pO2 Mixed VBG HCO3 O2 Delivery Device Oxygen Flow Rate PEEP Sodium Potassium Chloride Carbon Dioxide Anion Gap BUN Creatinine Creat Clearance w eGFR POC Glucometer 366 202 124 Random Glucose Hemoglobin A1c % Calcium Phosphorus Magnesium Total Bilirubin GGT AST ALT Alkaline Phosphatase Troponin I Total Protein Albumin Vitamin B12 Serum Folate Urine HCG, Qual Opiates Screen Methadone Screen Barbiturate Screen Phencyclidine Screen Ur Amphetamines Screen MDMA (Ecstasy) Screen Benzodiazepines Screen Cocaine Screen U Marijuana (THC) Screen Acetone, Qual 06/25/18 06/25/18 06/25/18 05:30 05:30 05:30 WBC 16.6 H Corrected WBC (auto) RBC 3.97 Hgb 12.8 Hct 38.0 MCV 95.6 D MCH 32.3 MCHC 33.8 RDW 12.7 Plt Count 346 MPV 8.5 Absolute Neuts (auto) 12.4 H Neutrophils % 74.4 Lymphocytes % 19.0 D Monocytes % 6.4 Eosinophils % 0.0 D Basophils % 0.2 Nucleated RBC % 0 Platelet Estimate Platelet Comment Puncture Site ABG pH ABG pCO2 at Pt Temp ABG pO2 at Pt Temp ABG HCO3 ABG O2 Sat (Measured) ABG O2 Content ABG Base Excess Rasheed Test VBG pH POC VBG pCO2 POC VBG pO2 Mixed VBG HCO3 O2 Delivery Device Oxygen Flow Rate PEEP Sodium 139 Potassium 3.8 Chloride 114 H Carbon Dioxide 13 L Anion Gap 12 BUN 9 Creatinine 0.8 Creat Clearance w eGFR > 60 POC Glucometer Random Glucose 131 H Hemoglobin A1c % 14.5 H Calcium 7.3 L Phosphorus 2.1 L Magnesium 2.2 Total Bilirubin GGT 101 H AST ALT Alkaline Phosphatase Troponin I Total Protein Albumin Vitamin B12 1263 H Serum Folate 75 H Urine HCG, Qual Opiates Screen Methadone Screen Barbiturate Screen Phencyclidine Screen Ur Amphetamines Screen MDMA (Ecstasy) Screen Benzodiazepines Screen Cocaine Screen U Marijuana (THC) Screen Acetone, Qual 06/25/18 06/25/18 06/25/18 06:28 07:37 08:20 WBC Corrected WBC (auto) RBC Hgb Hct MCV MCH MCHC RDW Plt Count MPV Absolute Neuts (auto) Neutrophils % Lymphocytes % Monocytes % Eosinophils % Basophils % Nucleated RBC % Platelet Estimate Platelet Comment Puncture Site ABG pH ABG pCO2 at Pt Temp ABG pO2 at Pt Temp ABG HCO3 ABG O2 Sat (Measured) ABG O2 Content ABG Base Excess Rasheed Test VBG pH POC VBG pCO2 POC VBG pO2 Mixed VBG HCO3 O2 Delivery Device Oxygen Flow Rate PEEP Sodium Potassium Chloride Carbon Dioxide Anion Gap BUN Creatinine Creat Clearance w eGFR POC Glucometer 94 64 333 Random Glucose Hemoglobin A1c % Calcium Phosphorus Magnesium Total Bilirubin GGT AST ALT Alkaline Phosphatase Troponin I Total Protein Albumin Vitamin B12 Serum Folate Urine HCG, Qual Opiates Screen Methadone Screen Barbiturate Screen Phencyclidine Screen Ur Amphetamines Screen MDMA (Ecstasy) Screen Benzodiazepines Screen Cocaine Screen U Marijuana (THC) Screen Acetone, Qual 06/25/18 06/25/18 06/25/18 09:05 09:50 09:50 WBC Corrected WBC (auto) RBC Hgb Hct MCV MCH MCHC RDW Plt Count MPV Absolute Neuts (auto) Neutrophils % Lymphocytes % Monocytes % Eosinophils % Basophils % Nucleated RBC % Platelet Estimate Platelet Comment Puncture Site ABG pH ABG pCO2 at Pt Temp ABG pO2 at Pt Temp ABG HCO3 ABG O2 Sat (Measured) ABG O2 Content ABG Base Excess Rasheed Test VBG pH POC VBG pCO2 POC VBG pO2 Mixed VBG HCO3 O2 Delivery Device Oxygen Flow Rate PEEP Sodium 137 Potassium 3.4 L Chloride 116 H Carbon Dioxide 16 L Anion Gap 5 L BUN 7 Creatinine 0.8 Creat Clearance w eGFR > 60 POC Glucometer 242 Random Glucose 158 H Hemoglobin A1c % Calcium 8.0 L Phosphorus 1.2 L Magnesium Total Bilirubin GGT AST ALT Alkaline Phosphatase Troponin I < 0.02 Total Protein Albumin Vitamin B12 Serum Folate Urine HCG, Qual Opiates Screen Methadone Screen Barbiturate Screen Phencyclidine Screen Ur Amphetamines Screen MDMA (Ecstasy) Screen Benzodiazepines Screen Cocaine Screen U Marijuana (THC) Screen Acetone, Qual 06/25/18 06/25/18 06/25/18 10:09 10:52 11:58 WBC Corrected WBC (auto) RBC Hgb Hct MCV MCH MCHC RDW Plt Count MPV Absolute Neuts (auto) Neutrophils % Lymphocytes % Monocytes % Eosinophils % Basophils % Nucleated RBC % Platelet Estimate Platelet Comment Puncture Site ABG pH ABG pCO2 at Pt Temp ABG pO2 at Pt Temp ABG HCO3 ABG O2 Sat (Measured) ABG O2 Content ABG Base Excess Rasheed Test VBG pH POC VBG pCO2 POC VBG pO2 Mixed VBG HCO3 O2 Delivery Device Oxygen Flow Rate PEEP Sodium Potassium Chloride Carbon Dioxide Anion Gap BUN Creatinine Creat Clearance w eGFR POC Glucometer 137 107 69 Random Glucose Hemoglobin A1c % Calcium Phosphorus Magnesium Total Bilirubin GGT AST ALT Alkaline Phosphatase Troponin I Total Protein Albumin Vitamin B12 Serum Folate Urine HCG, Qual Opiates Screen Methadone Screen Barbiturate Screen Phencyclidine Screen Ur Amphetamines Screen MDMA (Ecstasy) Screen Benzodiazepines Screen Cocaine Screen U Marijuana (THC) Screen Acetone, Qual 06/25/18 12:59 WBC Corrected WBC (auto) RBC Hgb Hct MCV MCH MCHC RDW Plt Count MPV Absolute Neuts (auto) Neutrophils % Lymphocytes % Monocytes % Eosinophils % Basophils % Nucleated RBC % Platelet Estimate Platelet Comment Puncture Site ABG pH ABG pCO2 at Pt Temp ABG pO2 at Pt Temp ABG HCO3 ABG O2 Sat (Measured) ABG O2 Content ABG Base Excess Rasheed Test VBG pH POC VBG pCO2 POC VBG pO2 Mixed VBG HCO3 O2 Delivery Device Oxygen Flow Rate PEEP Sodium Potassium Chloride Carbon Dioxide Anion Gap BUN Creatinine Creat Clearance w eGFR POC Glucometer 275 Random Glucose Hemoglobin A1c % Calcium Phosphorus Magnesium Total Bilirubin GGT AST ALT Alkaline Phosphatase Troponin I Total Protein Albumin Vitamin B12 Serum Folate Urine HCG, Qual Opiates Screen Methadone Screen Barbiturate Screen Phencyclidine Screen Ur Amphetamines Screen MDMA (Ecstasy) Screen Benzodiazepines Screen Cocaine Screen U Marijuana (THC) Screen Acetone, Qual Active Medications Generic Name Dose Route Start Last Admin Trade Name Carrie PRN Reason Stop Dose Admin Chlorhexidine Gluconate 1 applic 06/25/18 22:00 Hibiclens For Decolonization - TP HS KATHRYN Heparin Sodium (Porcine) 5,000 unit 06/25/18 06:00 06/25/18 05:21 Heparin - SQ 5,000 unit TID KATHRYN Administration Potassium Phosphate 25 mm/ 258.3333 mls @ 62.5 mls/hr 06/25/18 12:38 Sodium Chloride IVPB 06/25/18 16:17 ONCE ONE Insulin Aspart 0 vial 06/25/18 16:30 06/25/18 13:08 Novolog Vial Sliding Scale - SQ 6 units ACHS KATHRYN Administration Protocol Insulin Detemir 10 units 06/25/18 13:00 06/25/18 13:06 Levemir Vial SQ 10 units DAILY KATHRYN Administration Mupirocin 1 applic 06/25/18 10:00 06/25/18 10:21 Bactroban Ointment (For Decolonization) - NS 06/30/18 09:59 1 applic BID KATHRYN Administration ASSESSMENT/PLAN: 23 y/o female with PMH of IDDM who presented to the ED with complaints of dizziness/chest pain, accompanied by nausea and vomiting found to have a glucose of 900 and to be in DKA #High anion gap acidosis 2/2 DKA anion gap has now closed and patient is no longer on insulin drip -patient now on sub q insulin -BGMS q1hour and [id number] -monitor electrolytes -dietary consult -will need to start outpatient medication regimen -will switch fluids to NS once sugar is elevated #Hyperkalemia -since resolved -monitor BMP #leukocytosis likely reactive -CXR shows no signs of infection -follow up u/a F/E/N monitor electrolytes diabetic diet DVT PPX: heparin sq Problem List - Problems (1) DKA (diabetic ketoacidoses) Code(s): E13.10 - OTH DIABETES MELLITUS WITH KETOACIDOSIS WITHOUT COMA Qualifiers: Diabetes mellitus type: type 1 Diabetes mellitus complication detail: without coma Qualified Code(s): E10.10 - Type 1 diabetes mellitus with ketoacidosis without coma (2) Abdominal pain Code(s): R10.9 - UNSPECIFIED ABDOMINAL PAIN Qualifiers: Abdominal location: unspecified location Qualified Code(s): R10.9 - Unspecified abdominal pain Visit type - Emergency Visit Emergency Visit: Yes ED Registration Date: 06/25/18 Care time: The patient presented to the Emergency Department on the above date and was hospitalized for further evaluation of their emergent condition. - New Patient This patient is new to me today: Yes Date on this admission: 06/25/18 - Critical Care Critical Care patient: No
[2018-06-25] MEDS: POTASSIUM PHOSPHATE 25 MM in SODIUM CHLORIDE 250 ML IVPB ONE ×2 (14:04→17:57)
[2018-06-25 15:40] LABS: URINE APPEARANCE CLEAR; URINE BILIRUBIN NEGATIVE (<2.0 mg/dL); URINE COLOR LTYELLOW; URINE GLUCOSE (UA) 3+ (NEGATIVE); URINE KETONE 1+ (NEGATIVE); URINE LEUK ESTERASE NEGATIVE (NEGATIVE); URINE NITRITE NEGATIVE (NEGATIVE); URINE PROTEIN 1+ (NEGATIVE); URINE UROBILINOGEN NEGATIVE mg/dL (0.2-1.0)
[2018-06-25 16:13] LABS: EPI CELLS RARE /HPF (FEW)
--- NOTE | 2018-06-25 16:28 | EKG ---
Test Reason : Blood Pressure : / mmHG Vent. Rate : 116 BPM Atrial Rate : 116 BPM P-R Int : 140 ms QRS Dur : 086 ms QT Int : 348 ms P-R-T Axes : 071 058 005 degrees QTc Int : 483 ms SINUS TACHYCARDIA OTHERWISE NORMAL ECG WHEN COMPARED WITH ECG OF 22-JAN-2017 00:31, VENT. RATE HAS INCREASED BY 48 BPM Confirmed by Arcenio Greenwood ([id number]) on 06/25/2018 4:28:20 PM Referred By: Confirmed By:Arcenio Greenwood
[2018-06-25] MEDS ORDERED: INSULIN SLIDING SCALE (NOVOLOG) 1 VIAL SQ SCH (16:30)
[2018-06-25] MEDS: INSULIN SLIDING SCALE (NOVOLOG) 1 VIAL SQ SCH ×2 (17:57→21:23)
[2018-06-25 19:44] LABS: ANION GAP 11 MMOL/L (8-16); BLOOD UREA NITROGEN 8 mg/dL (7-18); CALCIUM 8.4 mg/dL (8.5-10.1); CHLORIDE 112 mmol/L (98-107); CO2 17 mmol/L (21-32); CREATININE 0.7 mg/dL (0.55-1.3); GLUCOSE,RANDOM 217 mg/dL (74-106); PHOSPHOROUS 3.3 mg/dL (2.5-4.9); SODIUM 140 mmol/L (136-145)
[2018-06-25] MEDS ORDERED: CHLORHEXIDINE GLUCONATE 4% CLEANSER FOR DECOLONIZATION TP SCH (22:00)
[2018-06-26] MEDS: HEPARIN NA (PORCINE) 5,000 UNITS/ML 1ML VIAL SQ SCH ×3 (05:52→21:37)
[2018-06-26] MEDS: INSULIN SLIDING SCALE (NOVOLOG) 1 VIAL SQ SCH ×4 (06:03→21:38)
[2018-06-26] MEDS ORDERED: INSULIN (LEVEMIR) 100 UNITS/ML UNITS SQ SCH ×3 (07:00→22:00)
[2018-06-26 07:22] LABS: HEMATOCRIT 34.7 % (32.4-45.2); MCH 32.2 pg (25.7-33.7); MCHC 34.4 g/dl (32.0-36.0); MEAN CELL VOLUME 93.6 fl (80-96); MEAN PLT VOLUME 8.2 fl (7.5-11.1); PLATELET COUNT 241 K/MM3 (134-434); RBC 3.71 M/mm3 (3.60-5.2); RDW 12.9 % (11.6-15.6); WHITE BLOOD COUNT 7.4 K/mm3 (4.0-10.0)
[2018-06-26 07:46] LABS: ALBUMIN 2.6 g/dl (3.4-5.0); ALK PHOS 101 U/L (45-117); ANION GAP 8 MMOL/L (8-16); BILIRUBIN,TOTAL 0.2 mg/dL (0.2-1); BLOOD UREA NITROGEN 6 mg/dL (7-18); CALCIUM 7.5 mg/dL (8.5-10.1); CHLORIDE 110 mmol/L (98-107); CO2 21 mmol/L (21-32); CREATININE 0.5 mg/dL (0.55-1.3); GLUCOSE,RANDOM 241 mg/dL (74-106); PHOSPHOROUS 1.6 mg/dL (2.5-4.9); POTASSIUM 3.2 mmol/L (3.5-5.1); SGOT/AST 13 U/L (15-37); SGPT/ALT 15 U/L (13-61); SODIUM 139 mmol/L (136-145); TOT PROT 5.5 g/dl (6.4-8.2)
[2018-06-26] MEDS ORDERED: SODIUM CHLORIDE 0.9% 500 ML INFUS.BAG IV ONE ×2 (08:21→13:52)
--- NOTE | 2018-06-26 08:44 | PN ---
Physical Exam: SUBJECTIVE: Patient seen and examined OBJECTIVE: Vital Signs Period Temp Pulse Resp BP Sys/Steele Pulse Ox Last 24 Hr 98.3 F-98.8 F 89-116 17-22 90-110/58-79 97-97 GENERAL: The patient is awake, alert, and fully oriented, in no acute distress. HEAD: Normal with no signs of trauma. EYES: PERRL, extraocular movements intact, sclera anicteric, conjunctiva clear. No ptosis. ENT: Ears normal, nares patent, oropharynx clear without exudates, moist mucous membranes. NECK: Trachea midline, full range of motion, supple. LUNGS: Breath sounds equal, clear to auscultation bilaterally, no wheezes, no crackles, no accessory muscle use. HEART: Regular rate and rhythm, S1, S2 without murmur, rub or gallop. ABDOMEN: Soft, nontender, nondistended, normoactive bowel sounds, no guarding, no rebound, no hepatosplenomegaly, no masses. EXTREMITIES: 2+ pulses, warm, well-perfused, no edema. NEUROLOGICAL: Cranial nerves II through XII grossly intact. Normal speech, gait not observed. PSYCH: Normal mood, normal affect. SKIN: Warm, dry, normal turgor, no rashes or lesions noted Laboratory Results - last 24 hr 06/25/18 06/25/18 06/25/18 09:05 09:50 09:50 WBC RBC Hgb Hct MCV MCH MCHC RDW Plt Count MPV Sodium 137 Potassium 3.4 L Chloride 116 H Carbon Dioxide 16 L Anion Gap 5 L BUN 7 Creatinine 0.8 Creat Clearance w eGFR > 60 POC Glucometer 242 Random Glucose 158 H Lactic Acid Calcium 8.0 L Phosphorus 1.2 L Magnesium Total Bilirubin AST ALT Alkaline Phosphatase Troponin I < 0.02 Total Protein Albumin Urine Color Urine Appearance Urine pH Ur Specific [place] Urine Protein Urine Glucose (UA) Urine Ketones Urine Blood Urine Nitrite Urine Bilirubin Urine Urobilinogen Ur Leukocyte Esterase Urine WBC (Auto) Urine RBC (Auto) Ur Epithelial Cells 06/25/18 06/25/18 06/25/18 10:09 10:52 11:58 WBC RBC Hgb Hct MCV MCH MCHC RDW Plt Count MPV Sodium Potassium Chloride Carbon Dioxide Anion Gap BUN Creatinine Creat Clearance w eGFR POC Glucometer 137 107 69 Random Glucose Lactic Acid Calcium Phosphorus Magnesium Total Bilirubin AST ALT Alkaline Phosphatase Troponin I Total Protein Albumin Urine Color Urine Appearance Urine pH Ur Specific [place] Urine Protein Urine Glucose (UA) Urine Ketones Urine Blood Urine Nitrite Urine Bilirubin Urine Urobilinogen Ur Leukocyte Esterase Urine WBC (Auto) Urine RBC (Auto) Ur Epithelial Cells 06/25/18 06/25/18 06/25/18 12:59 14:00 16:42 WBC RBC Hgb Hct MCV MCH MCHC RDW Plt Count MPV Sodium Potassium Chloride Carbon Dioxide Anion Gap BUN Creatinine Creat Clearance w eGFR POC Glucometer 275 188 Random Glucose Lactic Acid Calcium Phosphorus Magnesium Total Bilirubin AST ALT Alkaline Phosphatase Troponin I Total Protein Albumin Urine Color Ltyellow Urine Appearance Clear Urine pH 5.0 Ur Specific [place] 1.021 Urine Protein 1+ H Urine Glucose (UA) 3+ H Urine Ketones 1+ H Urine Blood Negative Urine Nitrite Negative Urine Bilirubin Negative Urine Urobilinogen Negative Ur Leukocyte Esterase Negative Urine WBC (Auto) 3 Urine RBC (Auto) <1 Ur Epithelial Cells Rare 06/25/18 06/25/18 06/25/18 18:00 18:29 21:21 WBC RBC Hgb Hct MCV MCH MCHC RDW Plt Count MPV Sodium 140 Potassium 4.0 Chloride 112 H Carbon Dioxide 17 L Anion Gap 11 BUN 8 Creatinine 0.7 Creat Clearance w eGFR > 60 POC Glucometer 174 173 Random Glucose 217 H Lactic Acid Calcium 8.4 L Phosphorus 3.3 Magnesium Total Bilirubin AST ALT Alkaline Phosphatase Troponin I Total Protein Albumin Urine Color Urine Appearance Urine pH Ur Specific [place] Urine Protein Urine Glucose (UA) Urine Ketones Urine Blood Urine Nitrite Urine Bilirubin Urine Urobilinogen Ur Leukocyte Esterase Urine WBC (Auto) Urine RBC (Auto) Ur Epithelial Cells 06/26/18 06/26/18 06/26/18 05:53 06:00 06:00 WBC 7.4 RBC 3.71 Hgb 12.0 Hct 34.7 MCV 93.6 MCH 32.2 MCHC 34.4 RDW 12.9 Plt Count 241 D MPV 8.2 Sodium 139 Potassium 3.2 L Chloride 110 H Carbon Dioxide 21 Anion Gap 8 BUN 6 L Creatinine 0.5 L Creat Clearance w eGFR > 60 POC Glucometer 234 Random Glucose 241 H Lactic Acid Calcium 7.5 L Phosphorus 1.6 L Magnesium 2.0 Total Bilirubin 0.2 AST 13 L ALT 15 Alkaline Phosphatase 101 Troponin I Total Protein 5.5 L Albumin 2.6 L Urine Color Urine Appearance Urine pH Ur Specific [place] Urine Protein Urine Glucose (UA) Urine Ketones Urine Blood Urine Nitrite Urine Bilirubin Urine Urobilinogen Ur Leukocyte Esterase Urine WBC (Auto) Urine RBC (Auto) Ur Epithelial Cells 06/26/18 06:00 WBC RBC Hgb Hct MCV MCH MCHC RDW Plt Count MPV Sodium Potassium Chloride Carbon Dioxide Anion Gap BUN Creatinine Creat Clearance w eGFR POC Glucometer Random Glucose Lactic Acid 2.7 H* Calcium Phosphorus Magnesium Total Bilirubin AST ALT Alkaline Phosphatase Troponin I Total Protein Albumin Urine Color Urine Appearance Urine pH Ur Specific [place] Urine Protein Urine Glucose (UA) Urine Ketones Urine Blood Urine Nitrite Urine Bilirubin Urine Urobilinogen Ur Leukocyte Esterase Urine WBC (Auto) Urine RBC (Auto) Ur Epithelial Cells Active Medications Generic Name Dose Route Start Last Admin Trade Name Freq PRN Reason Stop Dose Admin Heparin Sodium (Porcine) 5,000 unit 06/25/18 22:00 06/26/18 05:52 Heparin - SQ 5,000 unit TID KATHRYN Administration Sodium Chloride 1,000 mls @ 50 mls/hr 06/25/18 15:15 06/25/18 16:00 Normal Saline - IV 06/26/18 15:15 50 mls/hr ASDIR KATHRYN Administration Potassium Phosphate 40 mm/ 513.3333 mls @ 64.16 mls/hr 06/26/18 08:45 Sodium Chloride IVPB 06/26/18 16:45 ONCE ONE 40 MM/8 HR Insulin Aspart 1 vial 06/25/18 16:30 06/26/18 06:03 Novolog Vial Sliding Scale - SQ 4 units ACHS KATHRYN Administration Protocol Insulin Detemir 10 units 06/26/18 07:00 06/26/18 06:03 Levemir Vial SQ 10 units AM KATHRYN Administration Sodium Chloride 500 ml 06/26/18 08:21 Normal Saline - IV 06/26/18 08:22 ONCE ONE ASSESSMENT/PLAN: 23 y/o female with PMH of IDDM who presented to the ED with complaints of dizziness/chest pain, accompanied by nausea and vomiting found to have a glucose of 900 and to be in DKA #High anion gap acidosis 2/2 DKA patient now on sub q insulin; -BGMS q4H -monitor electrolytes -dietary consult -will need to start outpatient medication regimen -now on levemir 10 units at night and 15 in the AM in addition to sliding scale -endo consult pending #Hyperkalemia -since resolved -monitor BMP #leukocytosis likely reactive -CXR shows no signs of infection -follow up u/a F/E/N monitor electrolytes diabetic diet DVT PPX: heparin sq Problem List - Problems (1) DKA (diabetic ketoacidoses) Code(s): E13.10 - OTH DIABETES MELLITUS WITH KETOACIDOSIS WITHOUT COMA Qualifiers: Diabetes mellitus type: type 1 Diabetes mellitus complication detail: without coma Qualified Code(s): E10.10 - Type 1 diabetes mellitus with ketoacidosis without coma (2) Abdominal pain Code(s): R10.9 - UNSPECIFIED ABDOMINAL PAIN Qualifiers: Abdominal location: unspecified location Qualified Code(s): R10.9 - Unspecified abdominal pain Visit type - Emergency Visit Emergency Visit: Yes ED Registration Date: 06/25/18 Care time: The patient presented to the Emergency Department on the above date and was hospitalized for further evaluation of their emergent condition. - New Patient This patient is new to me today: Yes Date on this admission: 06/26/18 - Critical Care Critical Care patient: No
[2018-06-26] MEDS ORDERED: POTASSIUM PHOSPHATE 40 MM in SODIUM CHLORIDE 500 ML IVPB ONE (08:45)
--- NOTE | 2018-06-26 09:55 | PN ---
Teaching Attending Note Name of Resident: Caprice Colbert ATTENDING PHYSICIAN STATEMENT I saw and evaluated the patient. I reviewed the resident's note and discussed the case with the resident. I agree with the resident's findings and plan as documented. SUBJECTIVE: Patient is feeling better, no acute distress. No nausea or vomiting. OBJECTIVE: Vital Signs Temperature 98.3 F 06/26/18 07:06 Pulse Rate 89 06/26/18 07:06 Respiratory Rate 20 06/26/18 07:06 Blood Pressure 103/59 L 06/26/18 07:06 O2 Sat by Pulse Oximetry (%) 97 06/25/18 21:00 Initial Vital Signs Temp Pulse Resp BP Pulse Ox 98.9 F 120 H 20 121/71 100 06/24/18 23:27 06/24/18 23:27 06/24/18 23:27 06/24/18 23:27 06/24/18 23:27 GENERAL: The patient is awake, alert, and fully oriented, in no acute distress. HEAD: Normal with no signs of trauma. EYES: PERRL, extraocular movements intact, sclera anicteric, conjunctiva clear. ENT: Ears normal, oropharynx clear without exudates, moist mucous membranes. NECK: Trachea midline, full range of motion, supple. LUNGS: Breath sounds equal, clear to auscultation bilaterally, no wheezes, no crackles, no accessory muscle use. HEART: Regular rate and rhythm, S1, S2 without murmur, rub or gallop. ABDOMEN: Soft, nontender, nondistended, normoactive bowel sounds, no guarding, no rebound, no hepatosplenomegaly, no masses. EXTREMITIES: 2+ pulses, warm, well-perfused, no edema. NEUROLOGICAL: Cranial nerves II through XII grossly intact. Normal speech, gait not observed. PSYCH: Normal mood, normal affect. SKIN: Warm, dry, normal turgor, no rashes or lesions noted CBCD WBC 7.4 K/mm3 (4.0-10.0) 06/26/18 06:00 RBC 3.71 M/mm3 (3.60-5.2) 06/26/18 06:00 Hgb 12.0 GM/dL (10.7-15.3) 06/26/18 06:00 Hct 34.7 % (32.4-45.2) 06/26/18 06:00 MCV 93.6 fl (80-96) 06/26/18 06:00 MCHC 34.4 g/dl (32.0-36.0) 06/26/18 06:00 RDW 12.9 % (11.6-15.6) 06/26/18 06:00 Plt Count 241 K/MM3 (134-434) D 06/26/18 06:00 MPV 8.2 fl (7.5-11.1) 06/26/18 06:00 CMP Sodium 139 mmol/L (136-145) 06/26/18 06:00 Potassium 3.2 mmol/L (3.5-5.1) L 06/26/18 06:00 Chloride 110 mmol/L (98-107) H 06/26/18 06:00 Carbon Dioxide 21 mmol/L (21-32) 06/26/18 06:00 Anion Gap 8 MMOL/L (8-16) 06/26/18 06:00 BUN 6 mg/dL (7-18) L 06/26/18 06:00 Creatinine 0.5 mg/dL (0.55-1.3) L 06/26/18 06:00 Creat Clearance w eGFR > 60 (>60) 06/26/18 06:00 Random Glucose 241 mg/dL (74-106) H 06/26/18 06:00 Calcium 7.5 mg/dL (8.5-10.1) L 06/26/18 06:00 Total Bilirubin 0.2 mg/dL (0.2-1) 06/26/18 06:00 AST 13 U/L (15-37) L 06/26/18 06:00 ALT 15 U/L (13-61) 06/26/18 06:00 Alkaline Phosphatase 101 U/L (45-117) 06/26/18 06:00 Total Protein 5.5 g/dl (6.4-8.2) L 06/26/18 06:00 Albumin 2.6 g/dl (3.4-5.0) L 06/26/18 06:00 CARDIAC ENZYMES Troponin I < 0.02 ng/ml (0.00-0.05) 06/25/18 09:50 Current Medications Generic Name Dose Route Start Last Admin Trade Name Freq PRN Reason Stop Dose Admin Heparin Sodium (Porcine) 5,000 unit 06/25/18 22:00 06/26/18 05:52 Heparin - SQ 5,000 unit TID KATHRYN Administration Sodium Chloride 1,000 mls @ 50 mls/hr 06/25/18 15:15 06/25/18 16:00 Normal Saline - IV 06/26/18 15:15 50 mls/hr ASDIR KATHRYN Administration Potassium Phosphate 40 mm/ 513.3333 mls @ 64.16 mls/hr 06/26/18 08:45 Sodium Chloride IVPB 06/26/18 16:45 ONCE ONE 40 MM/8 HR Insulin Aspart 1 vial 06/25/18 16:30 06/26/18 06:03 Novolog Vial Sliding Scale - SQ 4 units ACHS KATHRYN Administration Protocol Insulin Detemir 10 units 06/26/18 07:00 06/26/18 06:03 Levemir Vial SQ 10 units AM KATHRYN Administration Home Medications Medication Instructions Recorded Insulin Aspart [Novolog] 6 unit SQ ACLD 10/08/17 Insulin Aspart [Novolog] 10 unit SQ ACBK 10/08/17 Insulin Detemir [Levemir Flextouch] 16 units SQ HS 10/08/17 Insulin Detemir [Levemir Flextouch] 25 unit SQ ACBK 10/08/17 Pnv No.95/Ferrous Fum/Folic AC 1 each PO DAILY 10/08/17 [ Vitamin Tablet] Ferrous Sulfate 325 mg PO BID 06/25/18 ASSESSMENT AND PLAN: Patient is a 23yo female with PMHx of Dm diagnosed 2 years ago who presented with N/V and was found to have DKA. # S/p DKA : AG closed, now on SQ insulin and SSI, Dr. Agosto for consult appreciated. SSI and SQ levemir will start in am and PM 10U in am and 10U in pm. monitor and replete electrolytes. # Electrolyte imbalance will replete prn. DVt Px: early ambulation
[2018-06-26] MEDS ORDERED: ACETAMINOPHEN 325 MG TABLET (FP) PO PRN (12:54)
--- NOTE | 2018-06-26 13:30 | PN ---
Progress Note, Physician Chief Complaint: pulmonary sleepy,no distress,-sob,hemoptysis - Current Medication List Current Medications: Active Medications Acetaminophen (Tylenol -) 650 mg PO Q6H PRN PRN Reason: Fever Or Pain Heparin Sodium (Porcine) (Heparin -) 5,000 unit SQ TID KATHRYN Last Admin: 06/26/18 05:52 Dose: 5,000 unit Sodium Chloride (Normal Saline -) 1,000 mls @ 50 mls/hr IV ASDIR KATHRYN Stop: 06/26/18 15:15 Last Admin: 06/25/18 16:00 Dose: 50 mls/hr Potassium Phosphate 40 mm/ (Sodium Chloride) 513.3333 mls @ 64.16 mls/hr IVPB ONCE ONE Stop: 06/26/18 16:45 Last Admin: 06/26/18 10:05 Dose: 64.16 mls/hr Insulin Aspart (Novolog Vial Sliding Scale -) 1 vial SQ ACHS [facility]; Protocol Last Admin: 06/26/18 11:31 Dose: 8 units Insulin Detemir (Levemir Vial) 10 units SQ HS [facility] Insulin Detemir (Levemir Vial) 15 units SQ AM KATHRYN - Objective Vital Signs: Vital Signs Temperature 98.3 F 06/26/18 07:06 Pulse Rate 89 06/26/18 07:06 Respiratory Rate 20 06/26/18 07:06 Blood Pressure 103/59 L 06/26/18 07:06 O2 Sat by Pulse Oximetry (%) 97 06/25/18 21:00 Constitutional: Yes: Calm, Thin Eyes: Yes: WNL HENT: Yes: WNL Neck: Yes: WNL Cardiovascular: Yes: Regular Rate and Rhythm, S1, S2 Respiratory: Yes: CTA Bilaterally Gastrointestinal: Yes: Normal Bowel Sounds, Soft Extremities: Yes: WNL Edema: No Labs: CBC, BMP 06/26/18 06:00 Assessment/Plan ASSESSMENT/PLAN: DKA requiring IV Insulin drip improved DM Suspected Viral URI as the etiology of the blood tinged sputum improved O2 as needed Check CXR Strict I & O IVF Monitor BMP Follow CMP PO as tolerated VTE prophylaxis monitor blood sugars insulin DR BRILL
[2018-06-26 14:26] LABS: ANION GAP 12 MMOL/L (8-16); BLOOD UREA NITROGEN 8 mg/dL (7-18); CALCIUM 7.8 mg/dL (8.5-10.1); CHLORIDE 108 mmol/L (98-107); CO2 20 mmol/L (21-32); CREATININE 0.5 mg/dL (0.55-1.3); GLUCOSE,RANDOM 206 mg/dL (74-106); POTASSIUM 3.6 mmol/L (3.5-5.1); SODIUM 140 mmol/L (136-145)
[2018-06-26] MEDS ORDERED: SODIUM CHLORIDE 1,000 ML IV SCH (14:54)
[2018-06-26] MEDS ORDERED: INSULIN (NOVOLOG) ASPART 100 UNITS/ML 10ML VIAL ONE (21:27)
[2018-06-26 22:52] LABS: URINE APPEARANCE CLEAR; URINE BILIRUBIN NEGATIVE (<2.0 mg/dL); URINE COLOR COLORLESS; URINE GLUCOSE (UA) 3+ (NEGATIVE); URINE KETONE NEGATIVE (NEGATIVE); URINE LEUK ESTERASE NEGATIVE (NEGATIVE); URINE NITRITE NEGATIVE (NEGATIVE); URINE PROTEIN NEGATIVE (NEGATIVE); URINE UROBILINOGEN NEGATIVE mg/dL (0.2-1.0)
--- NOTE | 2018-06-27 00:05 | CONSULT ---
Consult Consult Specialty:: endocrine Referred by:: ximena barrera res. Reason for Consultation:: dm 1 - History of Present Illness Chief Complaint: high sugars History of Present Illness: 23 year old female with past medical history of IDDM, presented with sOB, dizziness and chest pain, accompanied by nausea and vomiting for 1 day. Patient reporting episodes of nausea and vomiting, that was then followed by cough with blood-tinged sputum, as well as intermittent midsternal 7/10 chest tightness and dizziness. This was the first time patient experienced these symptoms. Patient is known to be noncompliant with medication and treatment .has not been checking blood sugars regularly. - Alcohol/Substance Use Hx Alcohol Use: No - Smoking History Smoking history: Never smoked Have you smoked in the past 12 months: No Aproximately how many cigarettes per day: 5 Home Medications - Allergies Allergies/Adverse Reactions: Allergies Allergy/AdvReac Type Severity Reaction Status Date / Time No Known Allergies Allergy Verified 11/08/17 11:40 - Home Medications Home Medications: Ambulatory Orders Insulin Aspart [Novolog] 6 unit SQ ACLD 10/08/17 Insulin Aspart [Novolog] 10 unit SQ ACBK 10/08/17 Insulin Detemir [Levemir Flextouch] 16 units SQ HS 10/08/17 Insulin Detemir [Levemir Flextouch] 25 unit SQ ACBK 10/08/17 Pnv No.95/Ferrous Fum/Folic AC [ Vitamin Tablet] 1 each PO DAILY Ferrous Sulfate 325 mg PO BID 06/25/18 Review of Systems - Review of Systems Constitutional: reports: Weakness Eyes: reports: Blurred Vision HENT: reports: No Symptoms Neck: reports: No Symptoms Respiratory: reports: SOB, SOB on Exertion Gastrointestinal: reports: Bloating Musculoskeletal: reports: No Symptoms Physical Exam Vital Signs: Vital Signs Temperature 97.7 F 06/26/18 22:00 Pulse Rate 105 H 06/26/18 22:00 Respiratory Rate 20 06/26/18 22:00 Blood Pressure 108/64 06/26/18 22:00 O2 Sat by Pulse Oximetry (%) 95 06/26/18 21:00 Constitutional: Yes: Calm Eyes: Yes: EOM Intact HENT: Yes: Normocephalic Neck: Yes: Trachea Midline Cardiovascular: Yes: Regular Rate and Rhythm Respiratory: Yes: Tachypnea Gastrointestinal: Yes: Normal Bowel Sounds Musculoskeletal: Yes: WNL Neurological: Yes: Alert, Oriented Labs: CBC, BMP 06/26/18 06:00 06/26/18 12:25 Problem List - Problems (1) DKA (diabetic ketoacidoses) Code(s): E13.10 - OTH DIABETES MELLITUS WITH KETOACIDOSIS WITHOUT COMA Qualifiers: Diabetes mellitus type: type 1 Diabetes mellitus complication detail: without coma Qualified Code(s): E10.10 - Type 1 diabetes mellitus with ketoacidosis without coma (2) Abdominal pain Code(s): R10.9 - UNSPECIFIED ABDOMINAL PAIN Qualifiers: Abdominal location: unspecified location Qualified Code(s): R10.9 - Unspecified abdominal pain (3) Abdominal pain during intrauterine Code(s): O99.89 - OTH DISEASES AND CONDITIONS COMPL PREG/CHLDBRTH; R10.9 - UNSPECIFIED ABDOMINAL PAIN (4) Diabetes mellitus Code(s): E11.9 - TYPE 2 DIABETES MELLITUS WITHOUT COMPLICATIONS (5) Epigastric abdominal pain Code(s): R10.13 - EPIGASTRIC PAIN Assessment/Plan Current Active Problems DKA (diabetic ketoacidoses) (Acute) bronchitis nausea vomiting dehydration Abnormal Lab Results 06/26/18 06/26/18 06/26/18 06:00 06:00 12:25 Potassium 3.2 L Chloride 110 H Carbon Dioxide BUN 6 L Creatinine 0.5 L Random Glucose 241 H Lactic Acid 2.7 H* 4.5 H* Calcium 7.5 L Phosphorus 1.6 L AST 13 L Total Protein 5.5 L Albumin 2.6 L Ur Specific [place] Urine Glucose (UA) 06/26/18 06/26/18 06/26/18 12:25 18:00 21:52 Potassium Chloride 108 H Carbon Dioxide 20 L BUN Creatinine 0.5 L Random Glucose 206 H Lactic Acid 2.7 H* Calcium 7.8 L Phosphorus AST Total Protein Albumin Ur Specific [place] 1.006 L Urine Glucose (UA) 3+ H Laboratory Results - last 24 hr 06/26/18 06/26/18 06/26/18 05:53 06:00 06:00 WBC 7.4 RBC 3.71 Hgb 12.0 Hct 34.7 MCV 93.6 MCH 32.2 MCHC 34.4 RDW 12.9 Plt Count 241 D MPV 8.2 Sodium 139 Potassium 3.2 L Chloride 110 H Carbon Dioxide 21 Anion Gap 8 BUN 6 L Creatinine 0.5 L Creat Clearance w eGFR > 60 POC Glucometer 234 Random Glucose 241 H Lactic Acid Calcium 7.5 L Phosphorus 1.6 L Magnesium 2.0 Total Bilirubin 0.2 AST 13 L ALT 15 Alkaline Phosphatase 101 Total Protein 5.5 L Albumin 2.6 L Urine Color Urine Appearance Urine pH Ur Specific [place] Urine Protein Urine Glucose (UA) Urine Ketones Urine Blood Urine Nitrite Urine Bilirubin Urine Urobilinogen Ur Leukocyte Esterase 06/26/18 06/26/18 06/26/18 06:00 11:23 12:25 WBC RBC Hgb Hct MCV MCH MCHC RDW Plt Count MPV Sodium Potassium Chloride Carbon Dioxide Anion Gap BUN Creatinine Creat Clearance w eGFR POC Glucometer 302 Random Glucose Lactic Acid 2.7 H* 4.5 H* Calcium Phosphorus Magnesium Total Bilirubin AST ALT Alkaline Phosphatase Total Protein Albumin Urine Color Urine Appearance Urine pH Ur Specific [place] Urine Protein Urine Glucose (UA) Urine Ketones Urine Blood Urine Nitrite Urine Bilirubin Urine Urobilinogen Ur Leukocyte Esterase 06/26/18 06/26/18 06/26/18 12:25 14:58 17:56 WBC RBC Hgb Hct MCV MCH MCHC RDW Plt Count MPV Sodium 140 Potassium 3.6 Chloride 108 H Carbon Dioxide 20 L Anion Gap 12 BUN 8 Creatinine 0.5 L Creat Clearance w eGFR > 60 POC Glucometer 348 286 Random Glucose 206 H Lactic Acid Calcium 7.8 L Phosphorus Magnesium Total Bilirubin AST ALT Alkaline Phosphatase Total Protein Albumin Urine Color Urine Appearance Urine pH Ur Specific [place] Urine Protein Urine Glucose (UA) Urine Ketones Urine Blood Urine Nitrite Urine Bilirubin Urine Urobilinogen Ur Leukocyte Esterase 06/26/18 06/26/18 06/26/18 18:00 21:32 21:52 WBC RBC Hgb Hct MCV MCH MCHC RDW Plt Count MPV Sodium Potassium Chloride Carbon Dioxide Anion Gap BUN Creatinine Creat Clearance w eGFR POC Glucometer 288 Random Glucose Lactic Acid 2.7 H* Calcium Phosphorus Magnesium Total Bilirubin AST ALT Alkaline Phosphatase Total Protein Albumin Urine Color Colorless Urine Appearance Clear Urine pH 6.0 Ur Specific [place] 1.006 L Urine Protein Negative Urine Glucose (UA) 3+ H Urine Ketones Negative Urine Blood Negative Urine Nitrite Negative Urine Bilirubin Negative Urine Urobilinogen Negative Ur Leukocyte Esterase Negative plan: bgm qid novolog insulin doses levemir 20 units am levemir 10 units hs nutrition consult.
[2018-06-27] MEDS: INSULIN SLIDING SCALE (NOVOLOG) 1 VIAL SQ SCH ×2 (06:22→12:25)
[2018-06-27] MEDS: HEPARIN NA (PORCINE) 5,000 UNITS/ML 1ML VIAL SQ SCH (06:57)
[2018-06-27] MEDS ORDERED: INSULIN (LEVEMIR) 100 UNITS/ML UNITS SQ SCH ×2 (07:00→10:19)
[2018-06-27 08:19] VITALS: BP 115/74; PULSE 88; TEMP 97.9
[2018-06-27 09:01] LABS: HEMATOCRIT 36.6 % (32.4-45.2); HEMOGLOBIN 12.7 GM/dL (10.7-15.3); MCH 32.3 pg (25.7-33.7); MCHC 34.6 g/dl (32.0-36.0); MEAN CELL VOLUME 93.3 fl (80-96); MEAN PLT VOLUME 8.2 fl (7.5-11.1); PLATELET COUNT 247 K/MM3 (134-434); RBC 3.92 M/mm3 (3.60-5.2); RDW 12.7 % (11.6-15.6); WHITE BLOOD COUNT 5.7 K/mm3 (4.0-10.0)
[2018-06-27 09:22] LABS: ANION GAP 7 MMOL/L (8-16); BLOOD UREA NITROGEN 8 mg/dL (7-18); CALCIUM 8.7 mg/dL (8.5-10.1); CHLORIDE 102 mmol/L (98-107); CO2 31 mmol/L (21-32); CREATININE 0.4 mg/dL (0.55-1.3); GLUCOSE,RANDOM 184 mg/dL (74-106); MAGNESIUM 2.3 mg/dL (1.8-2.4); PHOSPHOROUS 3.3 mg/dL (2.5-4.9); POTASSIUM 4.2 mmol/L (3.5-5.1); SODIUM 140 mmol/L (136-145)
--- NOTE | 2018-06-27 09:57 | PN ---
Progress Note (short form) - Note Progress Note: PULMONARY Denies shortness of breath, cough or hemoptysis. Wants to go home. Vital Signs Period Temp Pulse Resp BP Sys/Steele Pulse Ox Last 24 Hr 97.7 F-98.9 F 88-108 16-20 106-119/61-74 95 Gen: NAD at rest Heart: RRR Lung: decreased breath sounds at the bases Abd: soft, nontender Ext: no edema CBC, BMP 06/27/18 08:35 06/27/18 08:35 Active Medications Acetaminophen (Tylenol -) 650 mg PO Q6H PRN PRN Reason: Fever Or Pain Last Admin: 06/27/18 06:56 Dose: 650 mg Heparin Sodium (Porcine) (Heparin -) 5,000 unit SQ TID KATHRYN Last Admin: 06/27/18 06:57 Dose: 5,000 unit Insulin Aspart (Novolog Vial Sliding Scale -) 1 vial SQ ACHS KATHRYN; Protocol Last Admin: 06/27/18 06:22 Dose: Not Given Insulin Detemir (Levemir Vial) 10 units SQ HS KATHRYN Last Admin: 06/26/18 21:37 Dose: 10 units Insulin Detemir (Levemir Vial) 20 units SQ AM KATHRYN Last Admin: 06/27/18 06:56 Dose: 20 units A/P Diabetic Ketoacidosis resolved Metabolic Acidosis/Lactic Acidosis resolved URI Hemoptysis resolved - glucose control - PO as tolerated - d/c planning
--- NOTE | 2018-06-27 14:34 | DS ---
Physical Exam: SUBJECTIVE: Patient seen and examined at bedside- patients overnight sugar was 68 . however she denies any CP/SOB/N/V fevers or chills OBJECTIVE: Vital Signs Period Temp Pulse Resp BP Sys/Steele Pulse Ox Last 24 Hr 97.7 F-98.9 F 88-108 16-20 106-119/61-74 95 PHYSICAL EXAM GENERAL: The patient is awake, alert, and fully oriented, in no acute distress. EYES: PEERLA: EOMI; no scleral icterus NECK: no JVD; no lymphadenopathy LUNGS: CTA B/L; no rales, rhonchi or wheezing HEART: Regular rate and rhythm, S1, S2 without murmur, rub or gallop. ABDOMEN: Soft, nontender, nondistended, normoactive bowel sounds, no guarding, no rebound, no hepatosplenomegaly, no masses. EXTREMITIES: 2+ pulses, warm, well-perfused, no edema. PSYCH: Normal mood, normal affect. SKIN: Warm, dry, normal turgor, no rashes or lesions noted. LABS Laboratory Results - last 24 hr 06/26/18 06/26/18 06/26/18 14:58 17:56 18:00 WBC RBC Hgb Hct MCV MCH MCHC RDW Plt Count MPV Sodium Potassium Chloride Carbon Dioxide Anion Gap BUN Creatinine Creat Clearance w eGFR POC Glucometer 348 286 Random Glucose Lactic Acid 2.7 H* Calcium Phosphorus Magnesium Urine Color Urine Appearance Urine pH Ur Specific [place] Urine Protein Urine Glucose (UA) Urine Ketones Urine Blood Urine Nitrite Urine Bilirubin Urine Urobilinogen Ur Leukocyte Esterase 06/26/18 06/26/18 06/27/18 21:32 21:52 05:32 WBC RBC Hgb Hct MCV MCH MCHC RDW Plt Count MPV Sodium Potassium Chloride Carbon Dioxide Anion Gap BUN Creatinine Creat Clearance w eGFR POC Glucometer 288 68 Random Glucose Lactic Acid Calcium Phosphorus Magnesium Urine Color Colorless Urine Appearance Clear Urine pH 6.0 Ur Specific [place] 1.006 L Urine Protein Negative Urine Glucose (UA) 3+ H Urine Ketones Negative Urine Blood Negative Urine Nitrite Negative Urine Bilirubin Negative Urine Urobilinogen Negative Ur Leukocyte Esterase Negative 06/27/18 06/27/18 06/27/18 08:35 08:35 11:50 WBC 5.7 RBC 3.92 Hgb 12.7 Hct 36.6 MCV 93.3 MCH 32.3 MCHC 34.6 RDW 12.7 Plt Count 247 MPV 8.2 Sodium 140 Potassium 4.2 Chloride 102 Carbon Dioxide 31 Anion Gap 7 L BUN 8 Creatinine 0.4 L Creat Clearance w eGFR > 60 POC Glucometer 279 Random Glucose 184 H Lactic Acid Calcium 8.7 Phosphorus 3.3 Magnesium 2.3 Urine Color Urine Appearance Urine pH Ur Specific [place] Urine Protein Urine Glucose (UA) Urine Ketones Urine Blood Urine Nitrite Urine Bilirubin Urine Urobilinogen Ur Leukocyte Esterase HOSPITAL COURSE: Date of Admission:06/25/18 23 y/o female with PMH of DM presented to the ED with complaints of nausea/ vomiting/chest pain found to have a glucose of 918 and to be in DKA. Her diabetes medication regimen was 20 units of novolog however she did not routinely take it and only took it when she felt like it. She had not taken any of her novolog for 2 days prior to coming to the hospital. she never had any hospital admissions for DKA in the past. She was started on an insulin drip and placed on fluids. Her potassium on admission was 5.5 and sodium was 125 but corrected was normal and she was taken to ICU. Once her gap closed she was placed on subq insulin- and fluids and her electrolytes were monitored and she was in addiiotn placed on 10 units of levemir. her sugars still remained labile - she was seen by endocrine who placed her on 20 units in the morning and 10 at night of levemir- her sugars were very low in the morning so we d/c'd her nighttime dose of levemir and she sent her home with insulin sliding scale in addition to 20 units of levemir in AM. she was given an appt to see dr. perez in1 week in addition to diabetic education. Date of Discharge: 06/27/18 Minutes to complete discharge: 39 Discharge Summary Reason For Visit: DIABETIC KETOACIDOSIS Condition: Stable - Instructions Diet, Activity, Other Instructions: You came to the hospital with complaints of nausea/vomiting/chest pain and were found to have an elevated glucose level of 918 and were found to be in diabetic ketoacidosis. Please take the following medications: -Long acting insulin levemir 20 units in the morning -You will also be using an insulin sliding scale before each meal: if blood sugar between 101-150: 0 units between 151-200 : 2units between 201-250: 4 units between 251-300: 6 units between 301-350: 8 units between 351-400: 10 units Please follow up with within one week Please follow up with your primary care physician within one week It is very important to monitor your sugars before every meal, and avoid any drops in blood sugar. If you develop any headaches, dizziness, sweating, please measure your blood sugar and if it is low please eat. It is very important to follow a diabetic diet. *if you begin to experience any chest pains, shortness of breath, nausea/ vomiting please return to the emergency room immediately. Referrals: Oskar Perez MD [Staff Physician] - 1 Week Disposition: HOME - Home Medications Comprehensive Discharge Medication List: Ambulatory Orders Pnv No.95/Ferrous Fum/Folic AC [ Vitamin Tablet] 1 each PO DAILY Ferrous Sulfate 325 mg PO BID 06/25/18 Insulin (Levemir) [Levemir Vial] 20 units SQ AM #10 units 06/27/18 Insulin Sliding Scale [Novolog Vial Sliding Scale -] 1 vial SQ ACHS #10 units Multivit,Min/Folic Acid/Spz098 [Estroven Max Strength Caplet] 400 mcg PO DAILY # 30 tablet 06/27/18 Problem List - Problems (1) DKA (diabetic ketoacidoses) Code(s): E13.10 - OTH DIABETES MELLITUS WITH KETOACIDOSIS WITHOUT COMA Qualifiers: Qualified Code(s): E10.10 - Type 1 diabetes mellitus with ketoacidosis without coma (2) Abdominal pain Code(s): R10.9 - UNSPECIFIED ABDOMINAL PAIN Qualifiers: Qualified Code(s): R10.9 - Unspecified abdominal pain This patient is new to me today: Yes Date on this admission: 06/27/18 Emergency Visit: Yes ED Registration Date: 06/25/18 Care time: The patient presented to the Emergency Department on the above date and was hospitalized for further evaluation of their emergent condition. Critical Care patient: No - Discharge Referral Referred to [facility] Med P.C.: No
--- NOTE | 2018-06-27 14:48 | PN ---
Teaching Attending Note Name of Resident: Caprice Colbert ATTENDING PHYSICIAN STATEMENT I saw and evaluated the patient. I reviewed the resident's note and discussed the case with the resident. I agree with the resident's findings and plan as documented. SUBJECTIVE: Patient feels better with no acute distress. No nausea or vomiting. OBJECTIVE: Vital Signs Temperature 97.9 F 06/27/18 08:14 Pulse Rate 88 06/27/18 08:14 Respiratory Rate 18 06/27/18 08:14 Blood Pressure 115/74 06/27/18 08:14 O2 Sat by Pulse Oximetry (%) 95 06/26/18 21:00 GENERAL: The patient is awake, alert, and fully oriented, in no acute distress. HEAD: Normal with no signs of trauma. EYES: PERRL, extraocular movements intact, sclera anicteric, conjunctiva clear. ENT: Ears normal, oropharynx clear without exudates, moist mucous membranes. NECK: Trachea midline, full range of motion, supple. LUNGS: Breath sounds equal, clear to auscultation bilaterally, no wheezes, no crackles, no accessory muscle use. HEART: Regular rate and rhythm, S1, S2 without murmur, rub or gallop. ABDOMEN: Soft, nontender, nondistended, normoactive bowel sounds, no guarding, no rebound, no hepatosplenomegaly, no masses. EXTREMITIES: 2+ pulses, warm, well-perfused, no edema. NEUROLOGICAL: Cranial nerves II through XII grossly intact. Normal speech, gait not observed. PSYCH: Normal mood, normal affect. SKIN: Warm, dry, normal turgor, no rashes or lesions noted CBCD WBC 5.7 K/mm3 (4.0-10.0) 06/27/18 08:35 RBC 3.92 M/mm3 (3.60-5.2) 06/27/18 08:35 Hgb 12.7 GM/dL (10.7-15.3) 06/27/18 08:35 Hct 36.6 % (32.4-45.2) 06/27/18 08:35 MCV 93.3 fl (80-96) 06/27/18 08:35 MCHC 34.6 g/dl (32.0-36.0) 06/27/18 08:35 RDW 12.7 % (11.6-15.6) 06/27/18 08:35 Plt Count 247 K/MM3 (134-434) 06/27/18 08:35 MPV 8.2 fl (7.5-11.1) 06/27/18 08:35 CMP Sodium 140 mmol/L (136-145) 06/27/18 08:35 Potassium 4.2 mmol/L (3.5-5.1) 06/27/18 08:35 Chloride 102 mmol/L (98-107) 06/27/18 08:35 Carbon Dioxide 31 mmol/L (21-32) 06/27/18 08:35 Anion Gap 7 MMOL/L (8-16) L 06/27/18 08:35 BUN 8 mg/dL (7-18) 06/27/18 08:35 Creatinine 0.4 mg/dL (0.55-1.3) L 06/27/18 08:35 Creat Clearance w eGFR > 60 (>60) 06/27/18 08:35 Random Glucose 184 mg/dL (74-106) H 06/27/18 08:35 Calcium 8.7 mg/dL (8.5-10.1) 06/27/18 08:35 Total Bilirubin 0.2 mg/dL (0.2-1) 06/26/18 06:00 AST 13 U/L (15-37) L 06/26/18 06:00 ALT 15 U/L (13-61) 06/26/18 06:00 Alkaline Phosphatase 101 U/L (45-117) 06/26/18 06:00 Total Protein 5.5 g/dl (6.4-8.2) L 06/26/18 06:00 Albumin 2.6 g/dl (3.4-5.0) L 06/26/18 06:00 CARDIAC ENZYMES Troponin I < 0.02 ng/ml (0.00-0.05) 06/25/18 09:50 Home Medications Medication Instructions Recorded Pnv No.95/Ferrous Fum/Folic AC 1 each PO DAILY 10/08/17 [ Vitamin Tablet] Ferrous Sulfate 325 mg PO BID 06/25/18 Insulin (Levemir) [Levemir Vial] 20 units SQ AM #10 units 06/27/18 Insulin Sliding Scale [Novolog 1 vial SQ ACHS #10 units 06/27/18 Vial Sliding Scale -] Multivit,Min/Folic Acid/Gyk796 400 mcg PO DAILY #30 tablet 06/27/18 [Estroven Max Strength Caplet] ASSESSMENT AND PLAN: Patient is a 23yo female with PMHx of Dm diagnosed 2 years ago who presented with N/V and was found to have DKA. # S/p DKA : as per Dr. Agosto, to send the patient home on SQ levemir in am for 20U daily and no Levemir at night . # Electrolyte imbalance, repleted. discussed with the patient regarding the prescription was send for Estroven not to take it , patient stated that she did not take the medication. discharge patient home.
== END 2018-06-27 14:04 | disposition home or self-care (01) | DRG 420 ==
LOC: JER 23:26 → JERBED 06-25 01:27 → JICU 06-25 04:01 → J8W 06-25 19:28
PROVIDERS: ADMIT Internal Medicine; ATTEND Internal Medicine
DX: E10.10 Type 1 diabetes mellitus with ketoacidosis without coma (principal); R10.9 Unspecified abdominal pain; E87.2 Acidosis; J06.9 Acute upper respiratory infection, unspecified; R04.2 Hemoptysis; E87.5 Hyperkalemia; D72.829 Elevated white blood cell count, unspecified; N17.9 Acute kidney failure, unspecified; E86.0 Dehydration; E83.39 Other disorders of phosphorus metabolism; E87.1 Hypo-osmolality and hyponatremia; D75.89 Other specified diseases of blood and blood-forming organs; Z79.4 Long term (current) use of insulin; R07.9 Chest pain, unspecified; Z91.14 Patient's other noncompliance with medication regimen; E87.6 Hypokalemia
CPT/HCPCS: 36415; 36600; 71045-TC-FY; 76705-TC; 80048; 80053; 80307; 81003; 81015; 82009; 82607; 82746; 82803; 82962; 82977; 83036; 83605; 83735; 84100; 84484; 84703; 85025; 85027; 90670; 90688; 93005; 93010; 99283-25; G0008; G0009; J1644; J7030

== ENCOUNTER 2018-08-01 23:41 | Emergency (ER) | payer OTHER ==
[2018-08-01 23:56] VITALS: BMI 13.7
[2018-08-02] MEDS ORDERED: ACETAMINOPHEN 1000 MG/100 ML VIAL (NON FORMULARY) IVPB ONE (00:41)
--- NOTE | 2018-08-02 00:47 | PDOC ---
History of Present Illness - General Chief Complaint: Wound Stated Complaint: SWOLLEN MOUTH Time Seen by Provider: 08/02/18 00:24 History Source: Patient Exam Limitations: No Limitations - History of Present Illness Initial Comments: 08/02/18 00:41 HISTORY OF PRESENT ILLNESS: 23-year-old woman with past medical history of IDDM presents emergency department for evaluation of right mandibular swelling worsening over 4 days. Patient reports she was seen by a dentist earlier today and was given a prescription for antibiotics and told to go to emergency department if symptoms were to worsen. She stated the dentist said there was nothing they could do at this time just take the antibiotics. Patient reports a foul taste in her mouth and decreased ability to chew food. She denies any fevers, chills, chest pain, shortness of breath, dizziness, difficulty swallowing or change in voice. No recent travel or sick contacts. PAST MEDICAL HISTORY: see HPI SURGICAL HISTORY: Denies ALLERGIES: No known drug allergies REVIEW OF SYSTEMS General/Constitutional: Denies fever or chills. Denies weakness, weight change. HEENT: see HPI Cardiovascular: Denies chest pain or shortness of breath. Respiratory: Denies cough, wheezing, or hemoptysis. Gastrointestinal: Denies nausea, vomiting, diarrhea or constipation. Denies rectal bleeding. Genitourinary: Denies dysuria, frequency, or change in urination. Musculoskeletal: Denies joint or muscle swelling or pain. Denies neck or back pain. Skin and breasts: Denies rash or easy bruising. Neurologic: Denies headache, vertigo, loss of consciousness, or loss of sensation. Psychiatric: Denies depression or anxiety. Endocrine: Denies increased thirst. Denies abnormal weight change. Hematologic/Lymphatic: Denies anemia, easy bleeding, or history of blood clots. Allergic/Immunologic: Denies hives or skin allergy. Denies latex allergy. PHYSICAL EXAM General Appearance: Well-appearing, appropriately dressed. No apparent distress , no intoxication. HEENT: EOMI, PERRLA, normal ENT inspection, normal voice, TMs normal, pharynx normal. No conjunctival pallor. No photophobia, scleral icterus. Swelling appreciated to the right mandible extending inferiorly to approximately midline on the underside of the chin. Swelling is nonfluctuant firm to touch. Central area of erythema present over the swelling. Multiple obvious dental caries noted to tooth #29, 30 and 31. Purulent discharge present at the base of tooth 28 and 29. Firm nonfluctuant swelling present to the lingual surface of the gingiva on the right mandible. Neck: Supple. Trachea midline. No tenderness, rigidity, carotid bruit, stridor , lymphadenopathy, or thyromegaly. Respiratory/Chest: Lungs CTAB. No shortness of breath, chest tenderness, respiratory distress, accessory muscle use. No crackles, rales, rhonchi, stridor , wheezing, dullness Cardiovascular: RRR. S1, S2. No JVD, murmur, bradycardia, tachycardia. Vascular Pulses: Dorsalis-Pedis (R): 2+, Dorsalis-Pedis (L): 2+ Integumentary: Approximate 4 cm area of erythema present over the right mandible extending to the inferior surface of the chin Neurologic: rehab physician II-XII intact. Fully oriented, alert. Appropriate mood/affect. Motor strength 5/5. No appreciable EOM palsy, facial droop or sensory deficit. 08/02/18 01:28 Past History - Past Medical History Allergies/Adverse Reactions: Allergies Allergy/AdvReac Type Severity Reaction Status Date / Time No Known Allergies Allergy Verified 08/01/18 23:56 Home Medications: Ambulatory Orders Pnv No.95/Ferrous Fum/Folic AC [ Vitamin Tablet] 1 each PO DAILY Ferrous Sulfate 325 mg PO BID 06/25/18 Insulin (Levemir) [Levemir Vial] 20 units SQ AM #10 units 06/27/18 Insulin Sliding Scale [Novolog Vial Sliding Scale -] 1 vial SQ ACHS #10 units Cardiac Disorders: Yes (HEART MURMUR) COPD: No CHF: No Diabetes: Yes HTN: No Hypercholesterolemia: No Thyroid Disease: No - Family Disease History Family Disease History: Diabetes: Mother - Immunization History Immunization Up to Date: Yes - Suicide/Smoking/Psychosocial Hx Smoking Status: No Smoking History: Never smoked Have you smoked in the past 12 months: No Number of Cigarettes Smoked Daily: 5 Information on smoking cessation initiated: No Hx Alcohol Use: No Drug/Substance Use Hx: No Substance Use Type: None *Physical Exam - Vital Signs Last Vital Signs Temp Pulse Resp BP Pulse Ox 97.3 F L 128 H 18 123/80 99 08/01/18 23:45 08/01/18 23:45 08/01/18 23:45 08/01/18 23:45 08/01/18 23:45 Moderate Sedation - Procedure Monitoring Vital Signs: Procedure Monitoring Vital Signs Temperature 97.3 F L 08/01/18 23:45 Pulse Rate 128 H 08/01/18 23:45 Respiratory Rate 18 08/01/18 23:45 Blood Pressure 123/80 08/01/18 23:45 O2 Sat by Pulse Oximetry (%) 99 08/01/18 23:45 ED Treatment Course - LABORATORY CBC & Chemistry Diagram: 08/02/18 00:43 08/02/18 00:43 - RADIOLOGY Radiology Studies Ordered: Category Date Time Status SOFT TISSUE NECK CT WITH CONTR [CT] Stat CT Scan 08/02/18 00:30 Ordered Medical Decision Making - Critical Care Time Total Critical Care Time (minutes): 60 Critical Care Statement: The care of this patient involved high complexity decision making to prevent further life threatening deterioration of the patient 's condition and/or to evaluate & treat vital organ system(s) failure or risk of failure. - Medical Decision Making 08/02/18 00:47 A/P: 23-year-old woman with cellulitis vs facial abscess vs ?Chato's Labs, urine, CT, IV Tylenol, Zosyn, likely admission versus transfer to tertiary care center 08/02/18 01:11 [facility] contacted for transfer. Awaiting to hear back from OMFS. 08/02/18 01:28 08/02/18 01:43 Case d/w Dr. Son of [facility]. Dr. Son requests to hold on transfer until labs and CT are resulted. 08/02/18 03:16 CT of the facial bones as read by imaging pet adoption counselor: Right area mandibular soft tissue cellulitis with phlegmon but no discrete drainable abscess is identified. Possible dental infection as the source. Call placed to [facility] to discuss with OMFS. 08/02/18 03:[address] Son (OMFS fellow) at [facility]. Patient to be transferred ER to ER with the accepting physician Dr. Juarez. ALS transport requested from the transfer center. 08/06/18 11:53 *DC/Admit/Observation/Transfer Diagnosis at time of Disposition: Chato's angina - Discharge Dispostion Disposition: TRANSFER ACUTE CARE/OTHER HOSP Condition at time of disposition: Fair - Referrals Referrals: Barb Barragan MD [Primary Care Provider] - - Patient Instructions - Post Discharge Activity - Transfer to Acute Care Facility Receiving Facility: [facility]. Accepting Physician:: Dr. Juarez Transfer comment: 08/02/18 03:41 Accepted for transfer at 0339
[2018-08-02] MEDS ORDERED: ACETAMINOPHEN INJECTION 100 ML IVPB ONE (00:48)
[2018-08-02] MEDS ORDERED: SODIUM CHLORIDE 0.9% 1000 ML INFUS.BAG IV ONE (00:53)
[2018-08-02] MEDS ORDERED: PIPERACILLIN/TAZOB 4.5 GM 4.5 GM in DEXTROSE 5%-WATER 100 ML IVPB ONE (00:57)
[2018-08-02] MEDS ORDERED: DEXAMETHASONE SOD PHOSPHATE 10 MG/1 ML VIAL IVPUSH ONE (01:10)
--- NOTE | 2018-08-02 01:12 | PDOC ---
*Physical Exam - Vital Signs Last Vital Signs Temp Pulse Resp BP Pulse Ox 97.3 F L 128 H 18 123/80 99 08/01/18 23:45 08/01/18 23:45 08/01/18 23:45 08/01/18 23:45 08/01/18 23:45 - Physical Exam Comments: 08/02/18 01:13 gen: awake, sitting up, no resp distress heart: +s1s2 tachy lungs: cta b/l, no stridor heent: R submandibular swelling with overlying cellulitis, fullness and tenseness of the submandibular space, no stridor, hot potato voice, trismus of the mouth abd: soft, nt/nd +bs ED Treatment Course - LABORATORY CBC & Chemistry Diagram: 08/02/18 00:43 08/02/18 00:43 - Medications Given in the ED: ED Medications Discontinued Medications Generic Name Dose Route Start Last Admin Trade Name Amritq PRN Reason Stop Dose Admin Acetaminophen 1,000 mg 08/02/18 00:41 08/02/18 00:49 Ofirmev Injection - IVPB 08/02/18 00:42 1,000 mg ONCE ONE Administration Sodium Chloride 1,000 ml 08/02/18 00:53 08/02/18 01:01 Normal Saline - IV 08/02/18 00:54 1,000 ml ONCE ONE Administration Medical Decision Making - Medical Decision Making 08/02/18 01:18 a/p: 23yo female with R facial cellulitis and submandibular swelling 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
[2018-08-02] MEDS ORDERED: PIPERACILLIN/TAZOB 4.5 GM 4.5 GM/100 ML BAG IVPB ONE (01:19)
[2018-08-02 01:20] LABS: VENOUS PC02 32.6 mmHg (41-51); VENOUS PH 7.42 (7.31-7.41); VENOUS PO2 36.5 mmHg (30-40)
[2018-08-02] MEDS ORDERED: VANCOMYCIN 1 GM in D5W (PRE-DOCKED) 1,000 MG/250 ML IVPB ONE (01:20)
[2018-08-02] MEDS ORDERED: DEXAMETHASONE SOD PHOSPHATE 10 MG/1 ML VIAL ONE (01:20)
[2018-08-02 01:28] LABS: BASO % 0.2 % (0-2.0); HEMATOCRIT 48.5 % (32.4-45.2); HEMOGLOBIN 17.5 GM/dL (10.7-15.3); MCH 31.9 pg (25.7-33.7); MCHC 36.1 g/dl (32.0-36.0); MEAN CELL VOLUME 88.4 fl (80-96); MEAN PLT VOLUME 8.6 fl (7.5-11.1); MONO % 10.6 % (3.8-10.2); NEUT % 76.2 % (42.8-82.8); PLATELET COUNT 377 K/MM3 (134-434); RBC 5.49 M/mm3 (3.60-5.2); RDW 12.1 % (11.6-15.6); WHITE BLOOD COUNT 9.5 K/mm3 (4.0-10.0)
[2018-08-02 01:34] LABS: HCG,QUALITATIVE URINE Negative
[2018-08-02 01:35] LABS: EPI CELLS 1.3 /HPF (0-5); HYALINE CASTS 3 /hpf (0-8); URINE APPEARANCE CLEAR; URINE BACTERIA 9.144 /hpf (NEGATIVE); URINE BILIRUBIN NEGATIVE (<2.0 mg/dL); URINE COLOR YELLOW; URINE GLUCOSE (UA) 3+ (NEGATIVE); URINE KETONE 1+ (NEGATIVE); URINE LEUK ESTERASE 3+ (NEGATIVE); URINE NITRITE NEGATIVE (NEGATIVE); URINE PROTEIN 1+ (NEGATIVE); URINE RBC 3 /hpf (0-4); URINE UROBILINOGEN 0.2 mg/dL (0.2-1.0); URINE WBC 126 /hpf (0-5); YEAST REVIEW (NEGATIVE)
[2018-08-02] MEDS ORDERED: VANCOMYCIN 1 GRAM (PRE-DOCKED) 1,000 MG/250 ML BAG IVPB ONE (01:51)
[2018-08-02 01:57] LABS: ANION GAP 13 MMOL/L (8-16); BLOOD UREA NITROGEN 10 mg/dL (7-18); CALCIUM 9.2 mg/dL (8.5-10.1); CHLORIDE 89 mmol/L (98-107); CO2 21 mmol/L (21-32); CREATININE 0.6 mg/dL (0.55-1.3); GLUCOSE,RANDOM 286 mg/dL (74-106); SODIUM 124 mmol/L (136-145)
[2018-08-02 02:14] LABS: INR 0.89 (0.83-1.09); PROTHROMBIN TIME (PATIENT) 10.5 SEC (9.7-13.0)
[2018-08-02] MEDS ORDERED: SODIUM CHLORIDE 0.9%/KCL 20 MEQ/1,000 ML INFUS.BAG IV SCH (02:30)
[2018-08-02 02:37] LABS: COCAINE, UR NEGATIVE ng/ml (CUTOFF=300); METHADONE, UR NEGATIVE ng/ml (CUTOFF=300); OPIATES, URI NEGATIVE ng/ml (CUTOFF=300); PHENCYCLIDINE,URINE NEGATIVE ng/ml (CUTOFF=25); URINE AMPHETAMINES NEGATIVE ng/ml (CUTOFF=500); URINE BARBITURATES NEGATIVE ng/ml (CUTOFF=200); URINE BENZODIAZEPINES NEGATIVE ng/ml (CUTOFF=200)
[2018-08-02] MEDS ORDERED: KCL 10 MEQ IVPB 10 MEQ/100 ML INFUS.BAG IVPB ONE ×2 (02:59→04:00)
[2018-08-02] MEDS: KCL 10 MEQ IVPB 10 MEQ/100 ML INFUS.BAG IVPB SCH ×2 (03:12→04:31)
[2018-08-02 03:13] VITALS: BP 128/64; PULSE 93; TEMP 98.8
== END 2018-08-02 04:42 | disposition short-term general hospital (02) ==
LOC: JER 23:41
PROC: 3E03329 Introduction of Other Anti-infective into Peripheral Vein, Percutaneous Approach (ICD-10-PCS; principal; 2018-08-01)
PROC: 3E033GC Introduction of Other Therapeutic Substance into Peripheral Vein, Percutaneous Approach (ICD-10-PCS; 2018-08-01)
PROC: 3E033NZ Introduction of Analgesics, Hypnotics, Sedatives into Peripheral Vein, Percutaneous Approach (ICD-10-PCS; 2018-08-01)
PROC: 3E033NZ Introduction of Analgesics, Hypnotics, Sedatives into Peripheral Vein, Percutaneous Approach (ICD-10-PCS; 2018-08-01)
PROC: 3E0333Z Introduction of Anti-inflammatory into Peripheral Vein, Percutaneous Approach (ICD-10-PCS; 2018-08-01)
DX: L03.211 Cellulitis of face (principal); L02.01 Cutaneous abscess of face
CPT/HCPCS: 36415; 70487-TC; 80048; 80307; 81003; 82803; 83605; 84703; 85025; 85610; 86850; 86900; 86901; 87040; 87086; 99285-25; J0131; J1100; J7030

== ENCOUNTER 2018-11-13 20:45 | Emergency (ER) | payer OTHER ==
--- NOTE | 2018-11-13 21:10 | PDOC ---
Rapid Medical Evaluation Time Seen by Provider: 11/13/18 21:09 Medical Evaluation: Allergies Allergy/AdvReac Type Severity Reaction Status Date / Time No Known Allergies Allergy Verified 08/01/18 23:56 11/13/18 21:09 Pt c/o: aashish feet swelling since x 3 days, no other complaints, pt is a diabetic and states bgm WNL Pt on brief exam: noted 2+ aashish pedal edema Pt ordered for: labs and urine pt to proceed to the ED Discharge Disposition - Diagnosis Pedal edema - Referrals - Patient Instructions - Post Discharge Activity
[2018-11-13 21:16] VITALS: BP 105/65; PULSE 105; TEMP 97.7; BMI 16.0
--- NOTE | 2018-11-13 22:08 | PDOC ---
History of Present Illness - General Chief Complaint: Edema Stated Complaint: FEET SWELLING Time Seen by Provider: 11/13/18 21:09 History Source: Patient Exam Limitations: Clinical Condition - History of Present Illness Initial Comments: 11/13/18 22:08 Patient with a history of insulin-dependent diabetes present with complaint of three-day history of swelling to bilateral ankles and feet which is beginning to hurt due to worsening swelling of the bilateral feet. Denies trauma or injury. Denies chest pain, shortness of breath, fever, chills or abdominal pains. Denies any other symptoms Timing/Duration: other (3 days) Past History - Past Medical History Allergies/Adverse Reactions: Allergies Allergy/AdvReac Type Severity Reaction Status Date / Time No Known Allergies Allergy Verified 11/13/18 21:16 Home Medications: Ambulatory Orders Pnv No.95/Ferrous Fum/Folic AC [ Vitamin Tablet] 1 each PO DAILY Ferrous Sulfate 325 mg PO BID 06/25/18 Insulin (Levemir) [Levemir Vial] 20 units SQ AM #10 units 06/27/18 Insulin Sliding Scale [Novolog Vial Sliding Scale -] 1 vial SQ ACHS #10 units Cardiac Disorders: Yes (HEART MURMUR) COPD: No CHF: No Diabetes: Yes HTN: No Hypercholesterolemia: No Thyroid Disease: No - Family Disease History Family Disease History: Diabetes: Mother - Immunization History Immunization Up to Date: Yes - Suicide/Smoking/Psychosocial Hx Smoking Status: No Smoking History: Never smoked Have you smoked in the past 12 months: No Number of Cigarettes Smoked Daily: 5 Information on smoking cessation initiated: No Hx Alcohol Use: No Drug/Substance Use Hx: No Substance Use Type: None Review of Systems - Review of Systems Able to Perform ROS?: Yes Is the patient limited Slovak proficient: No Constitutional: No: Chills, Fever, Malaise HEENTM: No: Symptoms Reported Respiratory: No: Symptoms reported Cardiac (ROS): No: Symptoms Reported ABD/GI: No: Nausea, Vomiting Musculoskeletal: Yes: Symptoms Reported, See HPI, Joint Swelling (b/l ankle), Muscle Pain (b/l feet) Integumentary: Yes: Symptoms Reported, See HPI, Other (swelling of b/l ankle and feet) Neurological: No: Numbness, Paresthesia, Tingling All Other Systems: Reviewed and Negative *Physical Exam - Vital Signs Last Vital Signs Temp Pulse Resp BP Pulse Ox 97.7 F 105 H 18 105/65 100 11/13/18 21:13 11/13/18 21:13 11/13/18 21:13 11/13/18 21:13 11/13/18 21:13 - Physical Exam Comments: 11/13/18 21:54 GENERAL: Well developed, well nourished. Awake and alert. No acute distress. CARDIOVASCULAR: Regular rate and rhythm. No murmurs, rubs, or gallops. PULMONARY: No evidence of respiratory distress. Lungs clear to auscultation bilaterally. No wheezing, rales or rhonchi. MUSCULOSKELETAL : mild tenderness over b/l ankles with 2+ pitting edema bilateral sides. No bony deformities EXTREMITIES: No cyanosis. No clubbing. 2+ edema to b/l ankle and feet. No calf tenderness. SKIN: Warm and dry. Normal capillary refill. NEUROLOGICAL: Alert, awake, appropriate. No motor deficits in the lower extremities. Gait is normal without ataxia. PSYCHIATRIC: Cooperative. Good eye contact. Appropriate mood and affect. General Appearance: Yes: Nourished, Appropriately Dressed, Mild Distress ED Treatment Course - LABORATORY CBC & Chemistry Diagram: 11/13/18 22:00 11/13/18 22:00 - RADIOLOGY Radiology Studies Ordered: Category Date Time Status DUPLEX VASCUL US-2LEGS [US] Stat Ultrasound 11/13/18 21:46 Ordered Medical Decision Making - Medical Decision Making 11/13/18 22:12 Patient with a history of insulin-dependent diabetes present with complaint of three-day history of swelling to bilateral ankles and feet which is beginning to hurt due to worsening swelling of the bilateral feet. Denies trauma on injury .Denies chest pain, shortness of breath, fever, chills or abdominal pains. Denies any other symptoms Exam significant for 2+ pitting edema to bilateral ankles and feet. No calf tenderness or swelling. No increased warmth. Normal pulses. Otherwise normal exam. Symptoms likely dependent edema versus less likely DVT CBC, CMP and BNP labs ordered. Duplex of bilateral ultrasound ordered to rule out DVT. Treat based on lab and imaging results 11/13/18 22:54 BNP normal. Chemistry lab with normal BUN/CR levels. dupplex U/S pending 07/03/19 23:49 dupplex ultrasound negative for DVT. Patient symptoms likely dependent edema. Patient advised to use compression stockings which patient report she has at home and hot compress with leg elevation. Patient stable for discharge *DC/Admit/Observation/Transfer Diagnosis at time of Disposition: Pedal edema - Discharge Dispostion Disposition: HOME Condition at time of disposition: Stable Decision to Admit order: No - Referrals Referrals: Xander Jensen MD [Staff Physician] - - Patient Instructions Printed Discharge Instructions: DI for Dependent Edema Additional Instructions: Your labs and leg ultrasound was normal. symptoms likely from retention of fluid from hot weather. Your glucose level is slightly high. make sure to have better glucose control. wear compression stockings on legs and keep feet elevated. Apply hot compress to feet to help with swelling. Follow-up with referred podiatry if symptoms persist for another 3 days - Post Discharge Activity
[2018-11-13 22:12] LABS: PH,URINE 5.5 (5.0-8.0); URINE APPEARANCE CLEAR; URINE BILIRUBIN NEGATIVE (NEGATIVE); URINE COLOR YELLOW; URINE GLUCOSE (UA) 3+ (NEGATIVE); URINE KETONE TRACE (NEGATIVE); URINE LEUK ESTERASE NEGATIVE (NEGATIVE); URINE NITRITE NEGATIVE (NEGATIVE); URINE PROTEIN NEGATIVE (NEGATIVE)
[2018-11-13 22:16] LABS: BASO % 0.5 % (0-2.0); EOS % 0.5 % (0-4.5); HEMATOCRIT 39.5 % (32.4-45.2); HEMOGLOBIN 13.1 GM/dL (10.7-15.3); LYMPH % 44.3 % (8-40); MCH 30.9 pg (25.7-33.7); MCHC 33.1 g/dl (32.0-36.0); MEAN CELL VOLUME 93.3 fl (80-96); MEAN PLT VOLUME 8.5 fl (7.5-11.1); MONO % 7.9 % (3.8-10.2); NEUT % 46.8 % (42.8-82.8); PLATELET COUNT 234 K/MM3 (134-434); RBC 4.23 M/mm3 (3.60-5.2); RDW 14.7 % (11.6-15.6); WHITE BLOOD COUNT 4.1 K/mm3 (4.0-10.0)
[2018-11-13 22:39] LABS: ALBUMIN 2.6 g/dl (3.4-5.0); BILIRUBIN,TOTAL 0.1 mg/dL (0.2-1); BLOOD UREA NITROGEN 13.3 mg/dL (7-18); CALCIUM 7.5 mg/dL (8.5-10.1); CREATININE 0.6 mg/dL (0.55-1.3); N-TERMINAL BNP 77.9 pg/ml (5-125); POTASSIUM 3.2 mmol/L (3.5-5.1); TOT PROT 6.3 g/dl (6.4-8.2)
[2018-11-13] MEDS ORDERED: ACETAMINOPHEN 325 MG TABLET (FP) PO ONE (23:45)
[2018-11-13] MEDS ORDERED: ACETAMINOPHEN 325 MG TABLET (FP) ONE (23:52)
== END 2018-11-13 23:58 | disposition home or self-care (01) ==
LOC: JER 20:45
DX: R60.9 Edema, unspecified (principal); E11.9 Type 2 diabetes mellitus without complications; Z79.4 Long term (current) use of insulin
CPT/HCPCS: 36415; 80053; 81003; 82436; 83880; 84133; 84300; 85025; 93970-TC; 99282-25

== ENCOUNTER 2019-02-17 17:35 | Inpatient (IN) | payer OTHER ==
[2019-02-17] MEDS ORDERED: ONDANSETRON 4 MG/2 ML VIAL IVPUSH ONE (19:00)
[2019-02-17] MEDS ORDERED: SODIUM CHLORIDE 0.9% 500 ML INFUS.BAG IV ONE (19:00)
[2019-02-17 19:33] LABS: BASO % 0.8 % (0-2.0); HEMATOCRIT 47.6 % (32.4-45.2); HEMOGLOBIN 15.4 GM/dL (10.7-15.3); LYMPH % 17.7 % (8-40); MCH 30.1 pg (25.7-33.7); MCHC 32.3 g/dl (32.0-36.0); MEAN CELL VOLUME 93.3 fl (80-96); MEAN PLT VOLUME 8.9 fl (7.5-11.1); MONO % 4.7 % (3.8-10.2); NEUT % 76.8 % (42.8-82.8); PLATELET COUNT 337 K/MM3 (134-434); RDW 12.3 % (11.6-15.6); WHITE BLOOD COUNT 7.4 K/mm3 (4.0-10.0)
[2019-02-17] MEDS ORDERED: ONDANSETRON 4 MG/2 ML VIAL ONE (19:34)
--- NOTE | 2019-02-17 19:38 | PDOC ---
History of Present Illness - General Chief Complaint: Blood Sugar Problem Stated Complaint: Blood Sugar Problem History Source: Patient Exam Limitations: No Limitations - History of Present Illness Initial Comments: 02/17/19 19:34 23 yo F PMH IDDM, 2/2 premature , presenting with N/V, sharp L flank pain, and polyuria. States that she has not taken her insulin in a week because they changed her insulin from a vial into a pen, and she didn't know how to take it. Reports having sharp L flank pain, followed by multiple episodes of nbnb vomiting and ongoing nausea. Has had poor appetite and increased thirst. Complains of burning, tingling sensation in hands and feet. Denies CP, SOB, constipation/diarrhea, fevers/chills. Denies dysuria, but states that it pastrana when she wipes. LMP 2 days ago. Past History - Past Medical History Allergies/Adverse Reactions: Allergies Allergy/AdvReac Type Severity Reaction Status Date / Time No Known Allergies Allergy Verified 02/17/19 17:40 Home Medications: Ambulatory Orders Insulin (Levemir) [Levemir Vial] 20 units SQ AM #10 units 06/27/18 Insulin Sliding Scale [Novolog Vial Sliding Scale -] 1 vial SQ ACHS #10 units Cardiac Disorders: Yes (HEART MURMUR) COPD: No CHF: No Diabetes: Yes HTN: No Hypercholesterolemia: No Thyroid Disease: No - Immunization History Immunization Up to Date: Yes - Psycho Social/Smoking Cessation Hx Smoking Status: No Smoking History: Never smoked Have you smoked in the past 12 months: No Number of Cigarettes Smoked Daily: 5 Information on smoking cessation initiated: No Hx Alcohol Use: No Drug/Substance Use Hx: No Substance Use Type: None Review of Systems - Review of Systems Constitutional: No: Chills, Fever HEENTM: No: Recent change in vision, Throat Pain, Mouth Swelling Respiratory: No: Cough, Orthopnea, Shortness of Breath Cardiac (ROS): No: Chest Pain, Irregular Heart Rate ABD/GI: Yes: Nausea, Vomiting. No: Constipated, Diarrhea : Yes: Flank Pain. No: Burning, Dysuria, Hematuria Musculoskeletal: No: Back Pain, Neck Pain Integumentary: No: Bruising Neurological: Yes: Headache, Paresthesia. No: Numbness, Tingling Psychiatric: Yes: Anxiety *Physical Exam - Vital Signs Last Vital Signs Temp Pulse Resp BP Pulse Ox 98.3 F 123 H 22 H 107/74 97 02/17/19 18:40 02/17/19 18:40 02/17/19 18:40 02/17/19 18:40 02/17/19 18:40 - Physical Exam Comments: 02/17/19 19:39 Gen: tearful, appears distressed HEENT: dry mucous membranes, atraumatic, normocephalic Neuro: AAOX4, CN II-XII intact, EOMI, PERRLA, FTN intact Neck: trachea midline, supple CV: regular rhythm, tachycardic Pulm: CTA b/l, no wheezing Abd: soft, diffusely tender, L CVA tenderness MSK: full ROM, intact pulses Skin: dry, warm Extr: no edema, no deformities ED Treatment Course - LABORATORY CBC & Chemistry Diagram: 02/18/19 05:46 02/18/19 05:46 - ADDITIONAL ORDERS Additional order review: Laboratory Results 02/17/19 18:45 POC Glucometer > 600 02/17/19 18:45 POC Glucometer > 600 - Medications Given in the ED: ED Medications Discontinued Medications Generic Name Dose Route Start Last Admin Trade Name Amritq PRN Reason Stop Dose Admin Sodium Chloride 2,000 ml 02/17/19 19:00 02/17/19 19:23 Normal Saline - IV 02/17/19 19:01 2,000 ml ONCE ONE Administration Medical Decision Making - Medical Decision Making 02/17/19 18:56 Concern for DKA v UTI v kidney stone. - CBC, CMP - EKG - lactate, VBG - UA/UC, U preg - beta-hydroxybutyrate - once confirmed not , CXR and CT abd/pelvis non con 02/17/19 19:53 pH 7.17, will start insulin drip, bolus 5 units insulin (0.1 mg/kg, rounding up) . 02/17/19 20:32 Glu 677, Na 127 (corrected to 136), K 6, Lactate 2.7, BHB >46. Will get CTAP, CXR port, get patient admitted to ICU. 02/17/19 20:40 UA with glucose and ketones, possible mild UTI. 02/17/19 20:49 EKG sinus tach at 111 bpm. 02/17/19 20:49 Patient urine preg negative, will get CT abd/pelvis w/o contrast looking for possible kidney stone, CXR. 02/17/19 20:[address] Guerra, will get patient admitted to ICU. 02/17/19 21:[address] Carvalho, patient will be admitted. Discharge - Discharge Information Problems reviewed: Yes Clinical Impression/Diagnosis: DKA (diabetic ketoacidoses) Condition: Guarded - Admission Yes - Follow up/Referral - Patient Discharge Instructions - Post Discharge Activity
--- NOTE | 2019-02-17 19:40 | PDOC ---
Attending Attestation - Resident Resident Name: Pearl Jones - ED Attending Attestation I have performed the following: I have examined & evaluated the patient, The case was reviewed & discussed with the resident, I agree w/resident's findings & plan - HPI HPI: 02/17/19 21:18 see resident hpi - Physicial Exam PE: 02/17/19 21:19 agree with resident exam - Critical Care Time Total Critical Care Time: 40 Critical Care Statement: The care of this patient involved high complexity decision making to prevent further life threatening deterioration of the patient 's condition and/or to evaluate & treat vital organ system(s) failure or risk of failure. - Medical Decision Making 02/17/19 21:19 23-year-old female with uncontrolled type 1 diabetes and left flank pain Labs consistent with DKA IV fluid hydration and insulin drip initiated in the emergency department Plan for ICU admission CT scan abdomen and pelvis and UA to rule out renal stone/urinary tract infection
[2019-02-17 19:48] LABS: VENOUS PC02 40.4 mmHg (38-52); VENOUS PO2 < 49 mmHg (28-48)
[2019-02-17 19:49] LABS: VENOUS PH 7.17 (7.31-7.41)
[2019-02-17 19:51] LABS: MAGNESIUM 2.3 mg/dL (1.8-2.4); PHOSPHOROUS 6.2 mg/dL (2.5-4.9)
[2019-02-17] MEDS ORDERED: INSULIN REGULAR HUMAN 100 UNITS/ML *VIAL IVPUSH ONE (19:53)
[2019-02-17] MEDS ORDERED: INSULIN REGULAR 100 UNITS in SODIUM CHLORIDE 99 ML IVPB SCH (20:00)
[2019-02-17 20:19] LABS: ALBUMIN 4.8 g/dl (3.4-5.0); BILIRUBIN,TOTAL 0.6 mg/dL (0.2-1); BLOOD UREA NITROGEN 16.6 mg/dL (7-18); CREATININE 1.1 mg/dL (0.55-1.3); TOT PROT 8.8 g/dl (6.4-8.2)
[2019-02-17 20:38] LABS: EPI CELLS 2.6 /HPF (0-5/HPF); HYALINE CASTS 0 /lpf (0-8); URINE APPEARANCE CLEAR; URINE BACTERIA 32.2 /hpf (NEGATIVE); URINE BILIRUBIN NEGATIVE (NEGATIVE); URINE COLOR YELLOW; URINE GLUCOSE (UA) 3+ (NEGATIVE); URINE KETONE 4+ (NEGATIVE); URINE LEUK ESTERASE NEGATIVE (NEGATIVE); URINE NITRITE NEGATIVE (NEGATIVE); URINE PROTEIN 1+ (NEGATIVE); URINE RBC 1 /hpf (0-4); URINE UROBILINOGEN 0.2 mg/dL (0.2-1.0); URINE WBC 1 /hpf (0-5)
--- NOTE | 2019-02-17 21:17 | HP ---
Admitting History and Physical - Primary Care Physician PCP: Isidro Carvalho - Admission History of Present Illness: 23 yo F PMH IDDM, 2/2 premature , presenting with N/V, sharp L flank pain, and polyuria. States that she has not taken her insulin in a week because they changed her insulin from a vial into a pen, and she didn't know how to take it. Reports having sharp L flank pain, followed by multiple episodes of nbnb vomiting and ongoing nausea. Has had poor appetite and increased thirst. Complains of burning, tingling sensation in hands and feet. Denies CP, SOB, constipation/diarrhea, fevers/chills. Denies dysuria, but states that it pastrana when she wipes. LMP 2 days ago. - Past Medical History Endocrine: Yes: Diabetes Mellitus - Smoking History Smoking history: Never smoked Have you smoked in the past 12 months: No Aproximately how many cigarettes per day: 5 - Alcohol/Substance Use Hx Alcohol Use: No Home Medications - Allergies Allergies/Adverse Reactions: Allergies Allergy/AdvReac Type Severity Reaction Status Date / Time No Known Allergies Allergy Verified 02/17/19 17:40 - Home Medications Home Medications: Ambulatory Orders Insulin (Levemir) [Levemir Vial] 20 units SQ AM #10 units 06/27/18 Insulin Sliding Scale [Novolog Vial Sliding Scale -] 1 vial SQ ACHS #10 units Physical Examination Vital Signs: Vital Signs Temperature 98.3 F 02/17/19 18:40 Pulse Rate 123 H 02/17/19 18:40 Respiratory Rate 22 H 02/17/19 18:40 Blood Pressure 107/74 02/17/19 18:40 O2 Sat by Pulse Oximetry (%) 97 02/17/19 18:40 Constitutional: Yes: No Distress HENT: Yes: Atraumatic Neck: Yes: Supple Cardiovascular: Yes: Regular Rate and Rhythm Respiratory: Yes: CTA Bilaterally Gastrointestinal: Yes: Normal Bowel Sounds Extremities: Yes: WNL Edema: No Peripheral Pulses WNL: Yes Labs: CBC, BMP 02/17/19 19:15 02/17/19 19:15 Problem List - Problems (1) DKA (diabetic ketoacidoses) Assessment/Plan: iv insuli drip bgms endo consult Code(s): E13.10 - OTH DIABETES MELLITUS WITH KETOACIDOSIS WITHOUT COMA (2) Diabetes mellitus Code(s): E11.9 - TYPE 2 DIABETES MELLITUS WITHOUT COMPLICATIONS Assessment/Plan Laboratory Tests 02/17/19 02/17/19 02/17/19 18:45 19:05 19:05 WBC RBC Hgb Hct MCV MCH MCHC RDW Plt Count MPV Absolute Neuts (auto) Neutrophils % Lymphocytes % Monocytes % Eosinophils % Basophils % Nucleated RBC % VBG pH POC VBG pCO2 POC VBG pO2 VBG HCO3 VBG O2 Sat (Reece) VBG Base Excess Sodium Potassium Chloride Carbon Dioxide Anion Gap BUN Creatinine Est GFR (CKD-EPI)AfAm Est GFR (CKD-EPI)NonAf POC Glucometer > 600 Random Glucose Lactic Acid 2.7 H* Calcium Phosphorus Magnesium Total Bilirubin AST ALT Alkaline Phosphatase Total Protein Albumin Beta-Hydroxybutyrate > 46.0 H Urine Color Urine Appearance Urine pH Ur Specific [place] Urine Protein Urine Glucose (UA) Urine Ketones Urine Blood Urine Nitrite Urine Bilirubin Urine Urobilinogen Ur Leukocyte Esterase Urine WBC (Auto) Urine RBC (Auto) Urine Casts (Auto) U Epithel Cells (Auto) Urine Bacteria (Auto) Urine HCG, Qual 02/17/19 02/17/19 02/17/19 19:15 19:15 19:15 WBC 7.4 RBC 5.10 Hgb 15.4 H Hct 47.6 H D MCV 93.3 MCH 30.1 MCHC 32.3 RDW 12.3 D Plt Count 337 D MPV 8.9 Absolute Neuts (auto) 5.6 Neutrophils % 76.8 D Lymphocytes % 17.7 D Monocytes % 4.7 Eosinophils % 0.0 D Basophils % 0.8 Nucleated RBC % 0 VBG pH POC VBG pCO2 POC VBG pO2 VBG HCO3 VBG O2 Sat (Reece) VBG Base Excess Sodium 127 L Potassium 6.0 H Chloride 93 L Carbon Dioxide 13 L Anion Gap 21 H BUN 16.6 Creatinine 1.1 Est GFR (CKD-EPI)AfAm 80.81 Est GFR (CKD-EPI)NonAf 69.72 POC Glucometer Random Glucose 677 H* Lactic Acid Calcium 10.0 Phosphorus 6.2 H Magnesium 2.3 Total Bilirubin 0.6 AST 9 L ALT 24 Alkaline Phosphatase 133 H Total Protein 8.8 H Albumin 4.8 Beta-Hydroxybutyrate Urine Color Urine Appearance Urine pH Ur Specific [place] Urine Protein Urine Glucose (UA) Urine Ketones Urine Blood Urine Nitrite Urine Bilirubin Urine Urobilinogen Ur Leukocyte Esterase Urine WBC (Auto) Urine RBC (Auto) Urine Casts (Auto) U Epithel Cells (Auto) Urine Bacteria (Auto) Urine HCG, Qual 02/17/19 02/17/19 02/17/19 19:30 20:30 20:30 WBC RBC Hgb Hct MCV MCH MCHC RDW Plt Count MPV Absolute Neuts (auto) Neutrophils % Lymphocytes % Monocytes % Eosinophils % Basophils % Nucleated RBC % VBG pH 7.17 L* POC VBG pCO2 40.4 POC VBG pO2 < 49 H VBG HCO3 14.2 L VBG O2 Sat (Reece) 39.4 L VBG Base Excess -14.1 L Sodium Potassium Chloride Carbon Dioxide Anion Gap BUN Creatinine Est GFR (CKD-EPI)AfAm Est GFR (CKD-EPI)NonAf POC Glucometer Random Glucose Lactic Acid Calcium Phosphorus Magnesium Total Bilirubin AST ALT Alkaline Phosphatase Total Protein Albumin Beta-Hydroxybutyrate Urine Color Yellow Urine Appearance Clear Urine pH 5.0 Ur Specific [place] 1.031 Urine Protein 1+ H Urine Glucose (UA) 3+ H Urine Ketones 4+ H Urine Blood Negative Urine Nitrite Negative Urine Bilirubin Negative Urine Urobilinogen 0.2 Ur Leukocyte Esterase Negative Urine WBC (Auto) 1 Urine RBC (Auto) 1 Urine Casts (Auto) 0 U Epithel Cells (Auto) 2.6 Urine Bacteria (Auto) 32.2 Urine HCG, Qual Negative 02/17/19 20:40 WBC RBC Hgb Hct MCV MCH MCHC RDW Plt Count MPV Absolute Neuts (auto) Neutrophils % Lymphocytes % Monocytes % Eosinophils % Basophils % Nucleated RBC % VBG pH POC VBG pCO2 POC VBG pO2 VBG HCO3 VBG O2 Sat (Reece) VBG Base Excess Sodium Potassium Chloride Carbon Dioxide Anion Gap BUN Creatinine Est GFR (CKD-EPI)AfAm Est GFR (CKD-EPI)NonAf POC Glucometer 553 Random Glucose Lactic Acid Calcium Phosphorus Magnesium Total Bilirubin AST ALT Alkaline Phosphatase Total Protein Albumin Beta-Hydroxybutyrate Urine Color Urine Appearance Urine pH Ur Specific [place] Urine Protein Urine Glucose (UA) Urine Ketones Urine Blood Urine Nitrite Urine Bilirubin Urine Urobilinogen Ur Leukocyte Esterase Urine WBC (Auto) Urine RBC (Auto) Urine Casts (Auto) U Epithel Cells (Auto) Urine Bacteria (Auto) Urine HCG, Qual Active Medications Generic Name Dose Route Start Last Admin Trade Name Freq PRN Reason Stop Dose Admin Insulin Human Regular 100 100 mls @ 4.17 mls/hr 02/17/19 20:00 02/17/19 20:46 units/ Sodium Chloride IVPB 0.1 units/kg/hr TITR KATHRYN 4.17 mls/hr Administration Protocol 0.1 UNITS/KG/HR Sodium Chloride 1,000 mls @ 150 mls/hr 02/17/19 21:30 Normal Saline - IV ASDIR [facility] Active Medications Generic Name Dose Route Start Last Admin Trade Name Carrie PRN Reason Stop Dose Admin Acetaminophen 650 mg 02/17/19 21:20 Tylenol - PO Q6H PRN FEVER Chlorhexidine Gluconate 1 applic 02/17/19 22:00 Hibiclens For Decolonization - TP HS KATHRYN Heparin Sodium (Porcine) 5,000 unit 02/17/19 21:30 02/17/19 21:48 Heparin - SQ 5,000 unit TID KATHRYN Administration Insulin Human Regular 100 100 mls @ 4.17 mls/hr 02/17/19 20:00 02/17/19 20:46 units/ Sodium Chloride IVPB 0.1 units/kg/hr TITR KATHRYN 4.17 mls/hr Administration Protocol 0.1 UNITS/KG/HR Sodium Chloride 1,000 mls @ 150 mls/hr 02/17/19 21:30 02/17/19 21:48 Normal Saline - IV 150 mls/hr ASDIR KATHRYN Administration Mupirocin 1 applic 02/17/19 22:00 Bactroban Ointment (For Decolonization) - NS 02/22/19 21:59 BID KATHRYN icu cc time 60 min
[2019-02-17] MEDS ORDERED: ACETAMINOPHEN 325 MG TABLET (FP) PO PRN (21:20)
[2019-02-17] MEDS ORDERED: SODIUM CHLORIDE 1,000 ML IV SCH (21:30)
[2019-02-17] MEDS ORDERED: HEPARIN NA (PORCINE) 5,000 UNITS/ML 1ML VIAL ONE (21:43)
[2019-02-17] MEDS: HEPARIN NA (PORCINE) 5,000 UNITS/ML 1ML VIAL SQ SCH (21:48)
--- NOTE | 2019-02-17 21:49 | CONSULT ---
Consultation: REQUESTING PROVIDER: Dr. Jones CONSULT REQUEST: We have been asked to medically evaluate this patient for DKA. HISTORY OF PRESENT ILLNESS: 23 y/o F with PMH IDDM (dx age 20), premature via (2018), who presented for nausea, emesis, L flank pain over the past day. Per pt, this week , her insulin had switched from pen formulation to vial. Usually takes lantus 30U at night, as well as 5-8 U novolog before meals. States that she did not know how to use the new formulation, thus she did not use it for the past week. States she has had episodes of DKA previously, when she attempted to manage it on her own. Has a PCP, but no civil laboratory technician. States that she felt generally unwell this wk, however sx exacerbated today with nausea, emesis, L flank pain. Currently menstruating. Denies [place], fever, chills, SOB, chest pain or pressure or changes in urinary or bowel function. No recent stressors, sick contact (+) daughter - 1 y/o with URI. ICU consulted for DKA: BG 677, HCO3 13, b-hydroxy(+) , AG 21, VBG pH 7.17. ABG ordered. 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 denies cigarette, alcohol and recreational drug use REVIEW OF SYSTEMS: +nausea, emesis +L flank pain PHYSICAL EXAMINATION Vital Signs - 24 hr 02/17/19 02/17/19 02/17/19 17:38 18:40 21:19 Temperature 98 F 98.3 F Pulse Rate 136 H Pulse Rate [ 123 H 90 Left Radial] Respiratory 18 22 H 18 Rate Blood Pressure 107/72 Blood Pressure 107/74 107/72 [Right Arm] O2 Sat by Pulse 98 97 100 Oximetry (%) GENERAL: resting comfortably. in NAD. AAO x 3 HEENT: NCAT NECK: supple CARDIO: S1, S2 RRR. no r/m/g PULM: CTA b/l. no accessory m usage ABDOMEN: nondistended, +tender L flank LE: 2+ pt pulses. no edema Laboratory Results 02/17/19 02/17/19 02/17/19 18:45 19:05 19:05 Creatinine POC Glucometer > 600 Random Glucose Lactic Acid 2.7 H* Beta-Hydroxybutyrate > 46.0 H 02/17/19 02/17/19 02/17/19 19:15 19:15 19:30 WBC 7.4 Hgb 15.4 H Hct 47.6 H D Plt Count 337 D VBG pH 7.17 L* Sodium 127 L Potassium 6.0 H Chloride 93 L Carbon Dioxide 13 L Anion Gap 21 H BUN 16.6 Creatinine 1.1 POC Glucometer Random Glucose 677 H* Beta-Hydroxybutyrate 02/17/19 02/17/19 20:30 20:40 POC Glucometer 553 Beta-Hydroxybutyrate Urine Ketones 4+ H Laboratory Tests 02/17/19 19:15 Hemoglobin A1c % 13.[address]: no evidence of urolithiasis or obstructive uropathy. + cholelithiasis. 4.8 x 3.3cm RLL bulla/cyst with eccentric mural nodule posteriorly measuring 1.3x0.7cm. ASSESSMENT/PLAN: 23 y/o F with PMH IDDM (dx age 20), premature via (2018), who presented for nausea, emesis, L flank pain over the past day. Admitted to ICU for DKA. #Neuro -AAO x 3, neuro intact #Endocrine DKA 2/2 medication non-compliance -BG 677, HCO3 13, b-hydroxy(+), AG 21, VBG pH 7.17. ABG ordered -no current signs of infection. UA (-) however f/u Ucx, CXR -start insulin gtt 0.1u kg/hr -BGM q1h, BMP q3hr -s/p 2L NS in ED. c/w IV NS 150 cc/hr -once BG < 200; start d51/2ns 150 cc/hr. once AG closes, BG <200, PO intake bridge w/ SQ -f/u lactic. w/ hemoconcentration, ensure IVF #Pulm -hx 4.8 x 3.3cm RLL bulla/cyst on CT will need outpt f/u #MSK L flank pain -cont to monitor, pain control as needed -spiral CT w/o urolithiasis #F/E/N IV NS 150 cc/hr continue to follow lytes NPO #PPX DVT: hep 5k SQ TID #Dispo admitted to ICU Dispo: We will continue to follow the patient. Thank you for this consultative opportunity. Visit type - Emergency Visit Emergency Visit: Yes ED Registration Date: 02/17/19 Care time: The patient presented to the Emergency Department on the above date and was hospitalized for further evaluation of their emergent condition. - New Patient This patient is new to me today: Yes Date on this admission: 02/18/19 - Critical Care Critical Care patient: Yes Total Critical Care Time (in minutes): 45 Critical Care Statement: The care of this patient involved high complexity decision making to prevent further life threatening deterioration of the patient 's condition and/or to evaluate & treat vital organ system(s) failure or risk of failure.
[2019-02-17] MEDS ORDERED: CHLORHEXIDINE GLUCONATE 4% CLEANSER FOR DECOLONIZATION TP SCH (22:00)
[2019-02-17] MEDS ORDERED: MUPIROCIN 2% TOPICAL OINTMENT FOR DECOLONIZATION NS SCH (22:00)
[2019-02-18 00:21] VITALS: BMI 15.4
[2019-02-18 00:37] LABS: ARTERIAL BLD GAS O2 SATURATION 98.2 % (95-98); ARTERIAL BLOOD GAS BASE EXCESS -6.7 meq/l (-2-2); ARTERIAL BLOOD GAS PCO2 36.1 mmHg (35-45); ARTERIAL BLOOD GAS PO2 104 mmHg (80-100); ARTERIAL BLOOD GAS pH 7.32 (7.35-7.45); CARBOXYHEMOGLOBIN 1.3 % (0-2)
[2019-02-18 01:21] LABS: BLOOD UREA NITROGEN 10.4 mg/dL (7-18); CALCIUM 8.2 mg/dL (8.5-10.1); CREATININE 0.6 mg/dL (0.55-1.3); N-TERMINAL BNP 8.4 pg/ml (5-125); POTASSIUM 4.2 mmol/L (3.5-5.1)
[2019-02-18 01:33] LABS: ALLENS TEST POSITIVE
[2019-02-18] MEDS ORDERED: INSULIN REGULAR 100 UNITS in SODIUM CHLORIDE 99 ML IVPB SCH (02:07)
[2019-02-18 06:07] LABS: BASO % 0.8 % (0-2.0); EOS % 0.7 % (0-4.5); HEMATOCRIT 37.1 % (32.4-45.2); LYMPH % 44.2 % (8-40); MCH 30.5 pg (25.7-33.7); MCHC 34.9 g/dl (32.0-36.0); MEAN CELL VOLUME 87.4 fl (80-96); MEAN PLT VOLUME 7.8 fl (7.5-11.1); MONO % 10.7 % (3.8-10.2); NEUT % 43.6 % (42.8-82.8); PLATELET COUNT 265 K/MM3 (134-434); RBC 4.24 M/mm3 (3.60-5.2); RDW 11.9 % (11.6-15.6); WHITE BLOOD COUNT 5.2 K/mm3 (4.0-10.0)
[2019-02-18] MEDS ORDERED: DEXTROSE 5%-0.45% SALINE 1,000 ML IV SCH ×2 (06:07)
[2019-02-18] MEDS: HEPARIN NA (PORCINE) 5,000 UNITS/ML 1ML VIAL SQ SCH ×2 (06:28→15:36)
[2019-02-18] MEDS ORDERED: DEXTROSE 5%-NORMAL SALINE 1,000 ML IV SCH (06:30)
[2019-02-18 06:31] LABS: ALBUMIN 3.2 g/dl (3.4-5.0); BILIRUBIN,TOTAL 0.4 mg/dL (0.2-1); BLOOD UREA NITROGEN 6.8 mg/dL (7-18); CREATININE 0.5 mg/dL (0.55-1.3); MAGNESIUM 1.6 mg/dL (1.8-2.4); PHOSPHOROUS 2.6 mg/dL (2.5-4.9); POTASSIUM 3.5 mmol/L (3.5-5.1); TOT PROT 5.9 g/dl (6.4-8.2)
[2019-02-18] MEDS ORDERED: MAGNESIUM SULF 50% (8.12 MEQ/2 ML-1 GM VIAL) IVPB ONE (07:15)
[2019-02-18] MEDS ORDERED: INSULIN (LEVEMIR) 100 UNITS/ML UNITS SQ ONE ×2 (07:15→10:39)
[2019-02-18] MEDS: KCL 10 MEQ IVPB 10 MEQ/100 ML INFUS.BAG IVPB SCH ×2 (07:49→09:17)
--- NOTE | 2019-02-18 10:21 | PN ---
Physical Exam: SUBJECTIVE: Patient seen and examined at bedside. pt states her flank pain has resolved. pt states she still has a pressure like headache on R frontal. pt denies n/v. pt is tolerating food. OBJECTIVE: Vital Signs Period Temp Pulse Resp BP Sys/Steele Pulse Ox Last 24 Hr 97.8 F-98.4 F 88-136 13-22 86-107/57-74 97-100 GENERAL: The patient is awake, alert, and fully oriented, in no acute distress. LUNGS: Breath sounds equal, clear to auscultation bilaterally, no wheezes, no crackles, no accessory muscle use. HEART: Regular rate and rhythm, S1, S2 without murmur, rub or gallop. ABDOMEN: Soft, nontender, nondistended, normoactive bowel sounds, no guarding EXTREMITIES: 2+ pulses, warm, well-perfused, no edema. NEUROLOGICAL: Cranial nerves II through XII grossly intact. Normal speech, gait not observed. SKIN: Warm, dry, normal turgor, no rashes or lesions noted Laboratory Last Values WBC 5.2 K/mm3 (4.0-10.0) 02/18/19 05:46 RBC 4.24 M/mm3 (3.60-5.2) 02/18/19 05:46 Hgb 13.0 GM/dL (10.7-15.3) 02/18/19 05:46 Hct 37.1 % (32.4-45.2) D 02/18/19 05:46 MCV 87.4 fl (80-96) 02/18/19 05:46 MCH 30.5 pg (25.7-33.7) 02/18/19 05:46 MCHC 34.9 g/dl (32.0-36.0) 02/18/19 05:46 RDW 11.9 % (11.6-15.6) 02/18/19 05:46 Plt Count 265 K/MM3 (134-434) D 02/18/19 05:46 MPV 7.8 fl (7.5-11.1) D 02/18/19 05:46 Absolute Neuts (auto) 2.3 K/mm3 (1.5-8.0) 02/18/19 05:46 Neutrophils % 43.6 % (42.8-82.8) D 02/18/19 05:46 Lymphocytes % 44.2 % (8-40) H D 02/18/19 05:46 Monocytes % 10.7 % (3.8-10.2) H D 02/18/19 05:46 Eosinophils % 0.7 % (0-4.5) D 02/18/19 05:46 Basophils % 0.8 % (0-2.0) 02/18/19 05:46 Nucleated RBC % 0 % (0-0) 02/18/19 05:46 Puncture Site Left radial 02/18/19 00:20 ABG pH 7.32 (7.35-7.45) L 02/18/19 00:20 ABG pCO2 at Pt Temp 36.1 mmHg (35-45) 02/18/19 00:20 ABG pO2 at Pt Temp 104 mmHg (80-100) H 02/18/19 00:20 ABG HCO3 18.2 mmol/L (22-27) L 02/18/19 00:20 ABG O2 Sat (Measured) 98.2 % (95-98) H 02/18/19 00:20 ABG O2 Content 18.3 % vol 02/18/19 00:20 ABG Base Excess -6.7 meq/l (-2-2) L 02/18/19 00:20 Rasheed Test Positive 02/18/19 00:20 VBG pH 7.17 (7.31-7.41) L* 02/17/19 19:30 POC VBG pCO2 40.4 mmHg (38-52) 02/17/19 19:30 POC VBG pO2 < 49 mmHg (28-48) H 02/17/19 19:30 VBG HCO3 14.2 mmol/L (23-29) L 02/17/19 19:30 VBG O2 Sat (Reece) 39.4 % (70-80) L 02/17/19 19:30 VBG Base Excess -14.1 meq/l (-2-2) L 02/17/19 19:30 Carboxyhemoglobin 1.3 % (0-2) 02/18/19 00:20 Methemoglobin < 1.0 % (0-2) 02/18/19 00:20 Oxygen Flow Rate Room air 02/18/19 00:20 Sodium 139 mmol/L (136-145) 02/18/19 05:46 Potassium 3.5 mmol/L (3.5-5.1) 02/18/19 05:46 Chloride 110 mmol/L (98-107) H 02/18/19 05:46 Carbon Dioxide 22 mmol/L (21-32) 02/18/19 05:46 Anion Gap 6 MMOL/L (8-16) L 02/18/19 05:46 BUN 6.8 mg/dL (7-18) L 02/18/19 05:46 Creatinine 0.5 mg/dL (0.55-1.3) L 02/18/19 05:46 Est GFR (CKD-EPI)AfAm 155.90 02/18/19 05:46 Est GFR (CKD-EPI)NonAf 134.52 02/18/19 05:46 POC Glucometer 191 UNITS (80-120) 02/18/19 09:13 Random Glucose 107 mg/dL (74-106) H 02/18/19 05:46 Hemoglobin A1c % 13.7 % (4.2-6.3) H 02/17/19 19:15 Lactic Acid 1.7 mmol/L (0.4-2.0) 02/17/19 23:00 Calcium 8.0 mg/dL (8.5-10.1) L 02/18/19 05:46 Phosphorus 2.6 mg/dL (2.5-4.9) 02/18/19 05:46 Magnesium 1.6 mg/dL (1.8-2.4) L 02/18/19 05:46 Total Bilirubin 0.4 mg/dL (0.2-1) 02/18/19 05:46 AST 9 U/L (15-37) L 02/18/19 05:46 ALT 16 U/L (13-61) 02/18/19 05:46 Alkaline Phosphatase 78 U/L (45-117) 02/18/19 05:46 Creatine Kinase 42 U/L (26-192) 02/17/19 23:30 Troponin I < 0.02 ng/ml (0.00-0.05) 02/17/19 23:30 B-Natriuretic Peptide 8.4 pg/ml (5-125) 02/18/19 00:00 Total Protein 5.9 g/dl (6.4-8.2) L 02/18/19 05:46 Albumin 3.2 g/dl (3.4-5.0) L 02/18/19 05:46 Beta-Hydroxybutyrate > 46.0 mg/dL (0.2-2.8) H 02/17/19 19:05 Serum , Qual Negative 02/17/19 23:30 Urine Color Yellow 02/17/19 20:30 Urine Appearance Clear 02/17/19 20:30 Urine pH 5.0 (5.0-8.0) 02/17/19 20:30 Ur Specific Ava 1.031 (1.010-1.035) 02/17/19 20:30 Urine Protein 1+ (NEGATIVE) H 02/17/19 20:30 Urine Glucose (UA) 3+ (NEGATIVE) H 02/17/19 20:30 Urine Ketones 4+ (NEGATIVE) H 02/17/19 20:30 Urine Blood Negative (NEGATIVE) 02/17/19 20:30 Urine Nitrite Negative (NEGATIVE) 02/17/19 20:30 Urine Bilirubin Negative (NEGATIVE) 02/17/19 20:30 Urine Urobilinogen 0.2 mg/dL (0.2-1.0) 02/17/19 20:30 Ur Leukocyte Esterase Negative (NEGATIVE) 02/17/19 20:30 Urine WBC (Auto) 1 /hpf (0-5) 02/17/19 20:30 Urine RBC (Auto) 1 /hpf (0-4) 02/17/19 20:30 Urine Casts (Auto) 0 /lpf (0-8) 02/17/19 20:30 U Epithel Cells (Auto) 2.6 /HPF (0-5/HPF) 02/17/19 20:30 Urine Bacteria (Auto) 32.2 /hpf (NEGATIVE) 02/17/19 20:30 Urine HCG, Qual Negative 02/17/19 20:30 Current Medications Acetaminophen (Tylenol -) 650 mg PO Q6H PRN PRN Reason: FEVER Chlorhexidine Gluconate (Hibiclens For Decolonization -) 1 applic TP HS [facility] Last Admin: 02/18/19 00:23 Dose: 1 applic Heparin Sodium (Porcine) (Heparin -) 5,000 unit SQ TID [facility] Last Admin: 02/18/19 06:28 Dose: 5,000 unit Insulin Human Regular 100 (units/ Sodium Chloride) 100 mls @ 2.08 mls/hr IVPB TITR KATHRYN; Protocol Last Admin: 02/18/19 02:13 Dose: 0.05 units/kg/hr, 2.08 mls/hr Dextrose/Sodium Chloride (D5-Ns -) 1,000 mls @ 175 mls/hr IV ASDIR KATHRYN Last Admin: 02/18/19 06:29 Dose: 175 mls/hr Mupirocin (Bactroban Ointment (For Decolonization) -) 1 applic NS BID KATHRYN Stop: 02/22/19 21:59 Last Admin: 02/18/19 00:24 Dose: [address] spiral : No evidence of urolithiasis or obstructive uropathy. Cholelithiasis is noted. There is also possible milk of calcium bile. The partially imaged lower chest demonstrates a 4.8 x 3.3 cm right lower lobe bulla/ cyst with an eccentric mural nodule posteriorly measuring 1.3 x 0.7 cm. Pulmonary consultation is suggested in regards to follow-up evaluation/ management. ASSESSMENT/PLAN: 23 y/o F with PMH IDDM (dx age 20), premature via (2018), who presented for nausea, emesis, L flank pain over the past day. Admitted to ICU for DKA. Neuro -AAO x 3, neuro intact -tylenol for pain/headache Endocrine DKA 2/2 medication non-compliance -flank pain, abdominal pain resolved -BG 677, HCO3 13, b-hydroxy(+), AG 21, VBG pH 7.17. ABG reviewed -AG now closed -no current signs of infection. UA (-) Ucx, CXR neg to date -s/p insulin drip -Levemir 15 BID while in hospital as per endo recs -BGM , ISS ACHS -Nutrition consult -health style maintenance discussed with pt, recommending ophthalmology consult outpt -endo recs appreciated Pulm -hx 4.8 x 3.3cm RLL bulla/cyst on CT -f/u ppd -CT chest w/o contrast to further eval bulla/cyst F/E/N -continue to follow lytes -diabetic diet DVT PPX:hep 5k SQ TID Dispo: transfer to medicine Visit type - Emergency Visit Emergency Visit: No - New Patient This patient is new to me today: Yes - Critical Care Critical Care patient: Yes Total Critical Care Time (in minutes): 36 Critical Care Statement: The care of this patient involved high complexity decision making to prevent further life threatening deterioration of the patient 's condition and/or to evaluate & treat vital organ system(s) failure or risk of failure. ATTENDING PHYSICIAN STATEMENT I saw and evaluated the patient. I reviewed the resident's note and discussed the case with the resident. I agree with the resident's findings and plan as documented. SUBJECTIVE: OBJECTIVE: ASSESSMENT AND PLAN:
[2019-02-18] MEDS ORDERED: INSULIN SLIDING SCALE (NOVOLOG) 1 VIAL SQ SCH (11:00)
--- NOTE | 2019-02-18 11:03 | PN ---
Teaching Attending Note Name of Resident: yL Bond ATTENDING PHYSICIAN STATEMENT I saw and evaluated the patient. I reviewed the resident's note and discussed the case with the resident. I agree with the resident's findings and plan as documented. SUBJECTIVE: Patient seen and examined in the ICU. Awake and alert. Off insulin drip. No CP or SOB. Intake & Output 02/15/19 02/16/19 02/17/19 02/18/19 23:59 23:59 23:59 23:59 Intake Total 918.6 Balance 918.6 Weight 89 lb 15.178 oz 90 lb Last Vital Signs Temp Pulse Resp BP Pulse Ox 98.4 F 88 16 88/64 L 99 02/18/19 10:00 02/18/19 10:00 02/18/19 10:00 02/18/19 10:00 02/18/19 09:00 Active Medications Acetaminophen (Tylenol -) 650 mg PO Q6H PRN PRN Reason: FEVER Chlorhexidine Gluconate (Hibiclens For Decolonization -) 1 applic TP HS REPLACED BY [facility] Last Admin: 02/18/19 00:23 Dose: 1 applic Heparin Sodium (Porcine) (Heparin -) 5,000 unit SQ TID REPLACED BY [facility] Last Admin: 02/18/19 06:28 Dose: 5,000 unit Insulin Aspart (Novolog Vial Sliding Scale -) 1 vial SQ ACHS REPLACED BY [facility]; Protocol Insulin Detemir (Levemir Vial) 30 units SQ BID REPLACED BY [facility] Insulin Detemir (Levemir Vial) 20 units SQ ONCE ONE Stop: 02/18/19 10:40 Last Admin: 02/18/19 10:44 Dose: 20 units Mupirocin (Bactroban Ointment (For Decolonization) -) 1 applic NS BID REPLACED BY [facility] Stop: 02/22/19 21:59 Last Admin: 02/18/19 00:24 Dose: 1 applic GENERAL: awake and alert, NAD HEENT: NCAT NECK: supple CARDIO: S1, S2 RRR. no r/m/g PULM: CTA b/l. no accessory m usage ABDOMEN: nondistended, minimal tenderness Left flank LE: 2+ pt pulses. no edema Laboratory Results - last 24 hr 02/17/19 02/17/19 02/17/19 18:45 19:05 19:05 WBC RBC Hgb Hct MCV MCH MCHC RDW Plt Count MPV Absolute Neuts (auto) Neutrophils % Lymphocytes % Monocytes % Eosinophils % Basophils % Nucleated RBC % Puncture Site ABG pH ABG pCO2 at Pt Temp ABG pO2 at Pt Temp ABG HCO3 ABG O2 Sat (Measured) ABG O2 Content ABG Base Excess Rasheed Test VBG pH POC VBG pCO2 POC VBG pO2 VBG HCO3 VBG O2 Sat (Reece) VBG Base Excess Carboxyhemoglobin Methemoglobin Oxygen Flow Rate Sodium Potassium Chloride Carbon Dioxide Anion Gap BUN Creatinine Est GFR (CKD-EPI)AfAm Est GFR (CKD-EPI)NonAf POC Glucometer > 600 Random Glucose Hemoglobin A1c % Lactic Acid 2.7 H* Calcium Phosphorus Magnesium Total Bilirubin AST ALT Alkaline Phosphatase Creatine Kinase Troponin I B-Natriuretic Peptide Total Protein Albumin Beta-Hydroxybutyrate > 46.0 H Serum , Qual Urine Color Urine Appearance Urine pH Ur Specific Collyer Urine Protein Urine Glucose (UA) Urine Ketones Urine Blood Urine Nitrite Urine Bilirubin Urine Urobilinogen Ur Leukocyte Esterase Urine WBC (Auto) Urine RBC (Auto) Urine Casts (Auto) U Epithel Cells (Auto) Urine Bacteria (Auto) Urine HCG, Qual 02/17/19 02/17/19 02/17/19 19:15 19:15 19:15 WBC 7.4 RBC 5.10 Hgb 15.4 H Hct 47.6 H D MCV 93.3 MCH 30.1 MCHC 32.3 RDW 12.3 D Plt Count 337 D MPV 8.9 Absolute Neuts (auto) 5.6 Neutrophils % 76.8 D Lymphocytes % 17.7 D Monocytes % 4.7 Eosinophils % 0.0 D Basophils % 0.8 Nucleated RBC % 0 Puncture Site ABG pH ABG pCO2 at Pt Temp ABG pO2 at Pt Temp ABG HCO3 ABG O2 Sat (Measured) ABG O2 Content ABG Base Excess Rasheed Test VBG pH POC VBG pCO2 POC VBG pO2 VBG HCO3 VBG O2 Sat (Reece) VBG Base Excess Carboxyhemoglobin Methemoglobin Oxygen Flow Rate Sodium 127 L Potassium 6.0 H Chloride 93 L Carbon Dioxide 13 L Anion Gap 21 H BUN 16.6 Creatinine 1.1 Est GFR (CKD-EPI)AfAm 80.81 Est GFR (CKD-EPI)NonAf 69.72 POC Glucometer Random Glucose 677 H* Hemoglobin A1c % Lactic Acid Calcium 10.0 Phosphorus 6.2 H Magnesium 2.3 Total Bilirubin 0.6 AST 9 L ALT 24 Alkaline Phosphatase 133 H Creatine Kinase Troponin I B-Natriuretic Peptide Total Protein 8.8 H Albumin 4.8 Beta-Hydroxybutyrate Serum , Qual Urine Color Urine Appearance Urine pH Ur Specific Collyer Urine Protein Urine Glucose (UA) Urine Ketones Urine Blood Urine Nitrite Urine Bilirubin Urine Urobilinogen Ur Leukocyte Esterase Urine WBC (Auto) Urine RBC (Auto) Urine Casts (Auto) U Epithel Cells (Auto) Urine Bacteria (Auto) Urine HCG, Qual 02/17/19 02/17/19 02/17/19 19:15 19:30 20:30 WBC RBC Hgb Hct MCV MCH MCHC RDW Plt Count MPV Absolute Neuts (auto) Neutrophils % Lymphocytes % Monocytes % Eosinophils % Basophils % Nucleated RBC % Puncture Site ABG pH ABG pCO2 at Pt Temp ABG pO2 at Pt Temp ABG HCO3 ABG O2 Sat (Measured) ABG O2 Content ABG Base Excess Rasheed Test VBG pH 7.17 L* POC VBG pCO2 40.4 POC VBG pO2 < 49 H VBG HCO3 14.2 L VBG O2 Sat (Reece) 39.4 L VBG Base Excess -14.1 L Carboxyhemoglobin Methemoglobin Oxygen Flow Rate Sodium Potassium Chloride Carbon Dioxide Anion Gap BUN Creatinine Est GFR (CKD-EPI)AfAm Est GFR (CKD-EPI)NonAf POC Glucometer Random Glucose Hemoglobin A1c % 13.7 H Lactic Acid Calcium Phosphorus Magnesium Total Bilirubin AST ALT Alkaline Phosphatase Creatine Kinase Troponin I B-Natriuretic Peptide Total Protein Albumin Beta-Hydroxybutyrate Serum , Qual Urine Color Urine Appearance Urine pH Ur Specific Collyer Urine Protein Urine Glucose (UA) Urine Ketones Urine Blood Urine Nitrite Urine Bilirubin Urine Urobilinogen Ur Leukocyte Esterase Urine WBC (Auto) Urine RBC (Auto) Urine Casts (Auto) U Epithel Cells (Auto) Urine Bacteria (Auto) Urine HCG, Qual Negative 02/17/19 02/17/19 02/17/19 20:30 20:40 23:00 WBC RBC Hgb Hct MCV MCH MCHC RDW Plt Count MPV Absolute Neuts (auto) Neutrophils % Lymphocytes % Monocytes % Eosinophils % Basophils % Nucleated RBC % Puncture Site ABG pH ABG pCO2 at Pt Temp ABG pO2 at Pt Temp ABG HCO3 ABG O2 Sat (Measured) ABG O2 Content ABG Base Excess Rasheed Test VBG pH POC VBG pCO2 POC VBG pO2 VBG HCO3 VBG O2 Sat (Reece) VBG Base Excess Carboxyhemoglobin Methemoglobin Oxygen Flow Rate Sodium Potassium Chloride Carbon Dioxide Anion Gap BUN Creatinine Est GFR (CKD-EPI)AfAm Est GFR (CKD-EPI)NonAf POC Glucometer 553 Random Glucose Hemoglobin A1c % Lactic Acid 1.7 Calcium Phosphorus Magnesium Total Bilirubin AST ALT Alkaline Phosphatase Creatine Kinase Troponin I B-Natriuretic Peptide Total Protein Albumin Beta-Hydroxybutyrate Serum , Qual Urine Color Yellow Urine Appearance Clear Urine pH 5.0 Ur Specific Collyer 1.031 Urine Protein 1+ H Urine Glucose (UA) 3+ H Urine Ketones 4+ H Urine Blood Negative Urine Nitrite Negative Urine Bilirubin Negative Urine Urobilinogen 0.2 Ur Leukocyte Esterase Negative Urine WBC (Auto) 1 Urine RBC (Auto) 1 Urine Casts (Auto) 0 U Epithel Cells (Auto) 2.6 Urine Bacteria (Auto) 32.2 Urine HCG, Qual 02/17/19 02/17/19 02/17/19 23:20 23:30 23:30 WBC RBC Hgb Hct MCV MCH MCHC RDW Plt Count MPV Absolute Neuts (auto) Neutrophils % Lymphocytes % Monocytes % Eosinophils % Basophils % Nucleated RBC % Puncture Site ABG pH ABG pCO2 at Pt Temp ABG pO2 at Pt Temp ABG HCO3 ABG O2 Sat (Measured) ABG O2 Content ABG Base Excess Rasheed Test VBG pH POC VBG pCO2 POC VBG pO2 VBG HCO3 VBG O2 Sat (Reece) VBG Base Excess Carboxyhemoglobin Methemoglobin Oxygen Flow Rate Sodium Potassium Chloride Carbon Dioxide Anion Gap BUN Creatinine Est GFR (CKD-EPI)AfAm Est GFR (CKD-EPI)NonAf POC Glucometer 194 Random Glucose Hemoglobin A1c % Lactic Acid Calcium Phosphorus Magnesium Total Bilirubin AST ALT Alkaline Phosphatase Creatine Kinase 42 Troponin I < 0.02 B-Natriuretic Peptide Total Protein Albumin Beta-Hydroxybutyrate Serum , Qual Negative Urine Color Urine Appearance Urine pH Ur Specific Collyer Urine Protein Urine Glucose (UA) Urine Ketones Urine Blood Urine Nitrite Urine Bilirubin Urine Urobilinogen Ur Leukocyte Esterase Urine WBC (Auto) Urine RBC (Auto) Urine Casts (Auto) U Epithel Cells (Auto) Urine Bacteria (Auto) Urine HCG, Qual 02/18/19 02/18/19 02/18/19 00:00 00:20 00:59 WBC RBC Hgb Hct MCV MCH MCHC RDW Plt Count MPV Absolute Neuts (auto) Neutrophils % Lymphocytes % Monocytes % Eosinophils % Basophils % Nucleated RBC % Puncture Site Left radial ABG pH 7.32 L ABG pCO2 at Pt Temp 36.1 ABG pO2 at Pt Temp 104 H ABG HCO3 18.2 L ABG O2 Sat (Measured) 98.2 H ABG O2 Content 18.3 ABG Base Excess -6.7 L Rasheed Test Positive VBG pH POC VBG pCO2 POC VBG pO2 VBG HCO3 VBG O2 Sat (Reece) VBG Base Excess Carboxyhemoglobin 1.3 Methemoglobin < 1.0 Oxygen Flow Rate Room air Sodium 137 Potassium 4.2 Chloride 109 H Carbon Dioxide 13 L Anion Gap 15 BUN 10.4 Creatinine 0.6 Est GFR (CKD-EPI)AfAm 146.83 Est GFR (CKD-EPI)NonAf 126.68 POC Glucometer 171 Random Glucose 203 H Hemoglobin A1c % Lactic Acid Calcium 8.2 L Phosphorus Magnesium Total Bilirubin AST ALT Alkaline Phosphatase Creatine Kinase Troponin I B-Natriuretic Peptide 8.4 Total Protein Albumin Beta-Hydroxybutyrate Serum , Qual Urine Color Urine Appearance Urine pH Ur Specific Collyer Urine Protein Urine Glucose (UA) Urine Ketones Urine Blood Urine Nitrite Urine Bilirubin Urine Urobilinogen Ur Leukocyte Esterase Urine WBC (Auto) Urine RBC (Auto) Urine Casts (Auto) U Epithel Cells (Auto) Urine Bacteria (Auto) Urine HCG, Qual 02/18/19 02/18/19 02/18/19 02:02 03:05 03:54 WBC RBC Hgb Hct MCV MCH MCHC RDW Plt Count MPV Absolute Neuts (auto) Neutrophils % Lymphocytes % Monocytes % Eosinophils % Basophils % Nucleated RBC % Puncture Site ABG pH ABG pCO2 at Pt Temp ABG pO2 at Pt Temp ABG HCO3 ABG O2 Sat (Measured) ABG O2 Content ABG Base Excess Rasheed Test VBG pH POC VBG pCO2 POC VBG pO2 VBG HCO3 VBG O2 Sat (Reece) VBG Base Excess Carboxyhemoglobin Methemoglobin Oxygen Flow Rate Sodium Potassium Chloride Carbon Dioxide Anion Gap BUN Creatinine Est GFR (CKD-EPI)AfAm Est GFR (CKD-EPI)NonAf POC Glucometer 152 144 136 Random Glucose Hemoglobin A1c % Lactic Acid Calcium Phosphorus Magnesium Total Bilirubin AST ALT Alkaline Phosphatase Creatine Kinase Troponin I B-Natriuretic Peptide Total Protein Albumin Beta-Hydroxybutyrate Serum , Qual Urine Color Urine Appearance Urine pH Ur Specific Collyer Urine Protein Urine Glucose (UA) Urine Ketones Urine Blood Urine Nitrite Urine Bilirubin Urine Urobilinogen Ur Leukocyte Esterase Urine WBC (Auto) Urine RBC (Auto) Urine Casts (Auto) U Epithel Cells (Auto) Urine Bacteria (Auto) Urine HCG, Qual 02/18/19 02/18/19 02/18/19 05:46 05:46 06:04 WBC 5.2 RBC 4.24 Hgb 13.0 Hct 37.1 D MCV 87.4 MCH 30.5 MCHC 34.9 RDW 11.9 Plt Count 265 D MPV 7.8 D Absolute Neuts (auto) 2.3 Neutrophils % 43.6 D Lymphocytes % 44.2 H D Monocytes % 10.7 H D Eosinophils % 0.7 D Basophils % 0.8 Nucleated RBC % 0 Puncture Site ABG pH ABG pCO2 at Pt Temp ABG pO2 at Pt Temp ABG HCO3 ABG O2 Sat (Measured) ABG O2 Content ABG Base Excess Rasheed Test VBG pH POC VBG pCO2 POC VBG pO2 VBG HCO3 VBG O2 Sat (Reece) VBG Base Excess Carboxyhemoglobin Methemoglobin Oxygen Flow Rate Sodium 139 Potassium 3.5 Chloride 110 H Carbon Dioxide 22 Anion Gap 6 L BUN 6.8 L Creatinine 0.5 L Est GFR (CKD-EPI)AfAm 155.90 Est GFR (CKD-EPI)NonAf 134.52 POC Glucometer 92 Random Glucose 107 H Hemoglobin A1c % Lactic Acid Calcium 8.0 L Phosphorus 2.6 Magnesium 1.6 L Total Bilirubin 0.4 AST 9 L ALT 16 Alkaline Phosphatase 78 Creatine Kinase Troponin I B-Natriuretic Peptide Total Protein 5.9 L Albumin 3.2 L Beta-Hydroxybutyrate Serum , Qual Urine Color Urine Appearance Urine pH Ur Specific Collyer Urine Protein Urine Glucose (UA) Urine Ketones Urine Blood Urine Nitrite Urine Bilirubin Urine Urobilinogen Ur Leukocyte Esterase Urine WBC (Auto) Urine RBC (Auto) Urine Casts (Auto) U Epithel Cells (Auto) Urine Bacteria (Auto) Urine HCG, Qual 02/18/19 02/18/19 02/18/19 07:06 08:03 09:13 WBC RBC Hgb Hct MCV MCH MCHC RDW Plt Count MPV Absolute Neuts (auto) Neutrophils % Lymphocytes % Monocytes % Eosinophils % Basophils % Nucleated RBC % Puncture Site ABG pH ABG pCO2 at Pt Temp ABG pO2 at Pt Temp ABG HCO3 ABG O2 Sat (Measured) ABG O2 Content ABG Base Excess Rasheed Test VBG pH POC VBG pCO2 POC VBG pO2 VBG HCO3 VBG O2 Sat (Reece) VBG Base Excess Carboxyhemoglobin Methemoglobin Oxygen Flow Rate Sodium Potassium Chloride Carbon Dioxide Anion Gap BUN Creatinine Est GFR (CKD-EPI)AfAm Est GFR (CKD-EPI)NonAf POC Glucometer 99 94 191 Random Glucose Hemoglobin A1c % Lactic Acid Calcium Phosphorus Magnesium Total Bilirubin AST ALT Alkaline Phosphatase Creatine Kinase Troponin I B-Natriuretic Peptide Total Protein Albumin Beta-Hydroxybutyrate Serum , Qual Urine Color Urine Appearance Urine pH Ur Specific Collyer Urine Protein Urine Glucose (UA) Urine Ketones Urine Blood Urine Nitrite Urine Bilirubin Urine Urobilinogen Ur Leukocyte Esterase Urine WBC (Auto) Urine RBC (Auto) Urine Casts (Auto) U Epithel Cells (Auto) Urine Bacteria (Auto) Urine HCG, Qual 02/18/19 10:37 WBC RBC Hgb Hct MCV MCH MCHC RDW Plt Count MPV Absolute Neuts (auto) Neutrophils % Lymphocytes % Monocytes % Eosinophils % Basophils % Nucleated RBC % Puncture Site ABG pH ABG pCO2 at Pt Temp ABG pO2 at Pt Temp ABG HCO3 ABG O2 Sat (Measured) ABG O2 Content ABG Base Excess Rasheed Test VBG pH POC VBG pCO2 POC VBG pO2 VBG HCO3 VBG O2 Sat (Reece) VBG Base Excess Carboxyhemoglobin Methemoglobin Oxygen Flow Rate Sodium Potassium Chloride Carbon Dioxide Anion Gap BUN Creatinine Est GFR (CKD-EPI)AfAm Est GFR (CKD-EPI)NonAf POC Glucometer 222 Random Glucose Hemoglobin A1c % Lactic Acid Calcium Phosphorus Magnesium Total Bilirubin AST ALT Alkaline Phosphatase Creatine Kinase Troponin I B-Natriuretic Peptide Total Protein Albumin Beta-Hydroxybutyrate Serum , Qual Urine Color Urine Appearance Urine pH Ur Specific Collyer Urine Protein Urine Glucose (UA) Urine Ketones Urine Blood Urine Nitrite Urine Bilirubin Urine Urobilinogen Ur Leukocyte Esterase Urine WBC (Auto) Urine RBC (Auto) Urine Casts (Auto) U Epithel Cells (Auto) Urine Bacteria (Auto) Urine HCG, Qual Spiral CT: no evidence of urolithiasis or obstructive uropathy. + cholelithiasis. 4.8 x 3.3cm RLL bulla/cyst with eccentric mural nodule posteriorly measuring 1.3x0.7cm. ASSESSMENT/PLAN: DKA IDDM (dx age 20) 4.8 x 3.3cm RLL bulla/cyst with eccentric mural nodule posteriorly measuring 1.3x0.7cm: findings may be from residual infectious process Premature via (2018) Chest CT SQ insulin PO as tolerated IVF VTE prophylaxis Will need to follow CT chest as an outpatient OOB to chair Floor Dr Rangel
--- NOTE | 2019-02-18 11:57 | CONSULT ---
Consult Consult Specialty:: Endocrinology Referred by:: Dr Carvalho Reason for Consultation:: DKA - History of Present Illness Chief Complaint: Abd Pain History of Present Illness: This 23 y/o F with PMH T1DM (dx age 20), premature via (2018), who presented for nausea, emesis, L flank pain over the past day. Per pt, this week, her insulin had switched from pen formulation to vial/?VGo. Usually takes lantus 30U at night, as well as 5-8 U novolog before meals. States that she did not know how to use the new formulation, thus she did not use it for the past week. FS at home 90 to 100s in the morning and up to 200 during the day. Rare hypos. Admission for DKA a year ago. Has polyuria, polydipsia. No visual symptoms or paresthesia of feet. Saw Oph last 3 years ago. Pt diagnosed with DKA: BG 677, HCO3 13, b-hydroxy(+), AG 21, VBG pH 7.17. ABG ordered. Treated with IV Insulin with resolution of DKA. - History Source History Provided By: Patient, Medical Record - Past Medical History Endocrine: Yes: Diabetes Mellitus - Alcohol/Substance Use Hx Alcohol Use: No - Smoking History Smoking history: Never smoked Have you smoked in the past 12 months: No Aproximately how many cigarettes per day: 5 Home Medications - Allergies Allergies/Adverse Reactions: Allergies Allergy/AdvReac Type Severity Reaction Status Date / Time No Known Allergies Allergy Verified 02/17/19 17:40 - Home Medications Home Medications: Ambulatory Orders Insulin (Levemir) [Levemir Vial] 20 units SQ AM #10 units 06/27/18 Insulin Sliding Scale [Novolog Vial Sliding Scale -] 1 vial SQ ACHS #10 units Family Medical History Family History: Unremarkable (Family h/o DM in an uncle) Review of Systems - Review of Systems Constitutional: reports: Malaise Eyes: reports: No Symptoms HENT: reports: No Symptoms Neck: reports: No Symptoms Cardiovascular: reports: No Symptoms Respiratory: reports: No Symptoms Gastrointestinal: reports: Abdominal Pain Genitourinary: reports: Other (Polyuria, polydipsia) Breasts: reports: No Symptoms Reported Musculoskeletal: reports: No Symptoms Endocrine: reports: No Symptoms Physical Exam Vital Signs: Vital Signs Temperature 98.4 F 10/08/19 10:00 Pulse Rate 88 02/18/19 10:00 Respiratory Rate 16 02/18/19 10:00 Blood Pressure 88/64 L 02/18/19 10:00 O2 Sat by Pulse Oximetry (%) 99 02/18/19 09:00 Constitutional: Yes: No Distress, Calm Eyes: Yes: Conjunctiva Clear, EOM Intact HENT: Yes: Atraumatic, Normocephalic Neck: Yes: Supple, Trachea Midline Cardiovascular: Yes: Regular Rate and Rhythm Respiratory: Yes: Regular, CTA Bilaterally Gastrointestinal: Yes: Normal Bowel Sounds, Soft Musculoskeletal: Yes: WNL Extremities: Yes: WNL Edema: No Neurological: Yes: Alert, Oriented Labs: CBC, BMP 02/18/19 05:46 02/18/19 05:46 Assessment/Plan AP: DKA IDDM (dx age 20) Rt lung bulla/cyst with eccentric mural nodule posteriorly measuring 1.3x0.7cm: CT findings may be from residual infectious process Premature via (2018) Diet exercise discussed Nutrition consult Discussed need for OPh exam as outpt Start with Levemir 15 units BID for now. Many diabetic need much less Insulin in the hospital b/o change in diet. PO as tolerated Continue D5 until pt is able have regular diet. Hydration and electrolyte replacement as necessary.
--- NOTE | 2019-02-18 12:06 | EKG ---
Test Reason : Blood Pressure : / mmHG Vent. Rate : 111 BPM Atrial Rate : 111 BPM P-R Int : 126 ms QRS Dur : 080 ms QT Int : 332 ms P-R-T Axes : 067 059 019 degrees QTc Int : 451 ms SINUS TACHYCARDIA POSSIBLE LEFT ATRIAL ENLARGEMENT BORDERLINE ECG WHEN COMPARED WITH ECG OF 25-JUN-2018 01:58, NO SIGNIFICANT CHANGE WAS FOUND Confirmed by Arcenio Greenwood ([id number]) on 02/18/2019 12:06:13 PM Referred By: Confirmed By:Arcenio Greenwood
[2019-02-18] MEDS: ACETAMINOPHEN 325 MG TABLET (FP) PO PRN ×2 (12:26→21:52)
[2019-02-18] MEDS ORDERED: TUBERCULIN PPD 5 TU/0.1ML SYRINGE (IN PATIENT USE ONLY) ID ONE (14:00)
--- NOTE | 2019-02-18 15:06 | PN ---
Progress Note, Physician History of Present Illness: doing better - Current Medication List Current Medications: Active Medications Acetaminophen (Tylenol -) 650 mg PO Q6H PRN PRN Reason: PAIN OR FEVER Last Admin: 02/18/19 12:26 Dose: 650 mg Chlorhexidine Gluconate (Hibiclens For Decolonization -) 1 applic TP HS [facility] Last Admin: 02/18/19 00:23 Dose: 1 applic Heparin Sodium (Porcine) (Heparin -) 5,000 unit SQ TID [facility] Last Admin: 02/18/19 06:28 Dose: 5,000 unit Insulin Aspart (Novolog Vial Sliding Scale -) 1 vial SQ TIDAC [facility]; Protocol Insulin Detemir (Levemir Vial) 15 units SQ BID@0700,2200 [facility] Mupirocin (Bactroban Ointment (For Decolonization) -) 1 applic NS BID [facility] Stop: 02/22/19 21:59 Last Admin: 02/18/19 00:24 Dose: 1 applic - Objective Vital Signs: Vital Signs Temperature 98.4 F 02/18/19 10:00 Pulse Rate 92 H 02/18/19 12:00 Respiratory Rate 16 02/18/19 12:00 Blood Pressure 103/68 02/18/19 12:00 O2 Sat by Pulse Oximetry (%) 99 02/18/19 09:00 Constitutional: Yes: No Distress Eyes: Yes: Conjunctiva Clear Cardiovascular: Yes: Regular Rate and Rhythm Respiratory: Yes: CTA Bilaterally Gastrointestinal: Yes: Normal Bowel Sounds Extremities: Yes: WNL Labs: CBC, BMP 02/18/19 05:46 02/18/19 05:46 Problem List - Problems (1) DKA (diabetic ketoacidoses) Assessment/Plan: iv insuli drip bgms endo consult Code(s): E13.10 - OTH DIABETES MELLITUS WITH KETOACIDOSIS WITHOUT COMA (2) Diabetes mellitus Code(s): E11.9 - TYPE 2 DIABETES MELLITUS WITHOUT COMPLICATIONS Assessment/Plan chest ct done, report seen id consult cc time 30 min
--- NOTE | 2019-02-18 16:02 | CONSULT ---
Consult Consult Specialty:: Infectious Disease Referred by:: Dr Carvalho Reason for Consultation:: Lung disease - History of Present Illness Chief Complaint: L flank pain and paresthesias x1 day prior to presentation. with incidental finding of R lung bulla on imaging History of Present Illness: We were consulted to see the pt for an incidental R lung base bulla during DKA mx with L flank pain. Pt is a 23 yo F presentation for flank pain, parasthesias and blurred vision and admitted and treated for DKA. Pt was diagnosed with DM at 20, started on metformin and then switched to insulin, but has had prior DKAs from non compliance to insulin. Pt and parents are [place], no recent local or international travels, no exposure to toxins. No known lung disease. Pt denies TB exposure. 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 Pt admits unintentional weight loss from poor diet, no recent fevers, no SOB, no chest pain, no night sweats (except for hypoglycemic symptoms). She had a neg PPD placed in past and HIV testing done during last in past 1 year. No sick contacts. Got recent flu vaccines and pre-employment serologies. Mother unable to confirm testing for CF, but pt was born in [facility]. 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 in store Lives with partner and child Smoked marijuana occ prior to Never smoked cigarettes No alcohol FHx Uncle with DM, no TB, Cancer or lung dx in family - History Source History Provided By: Patient, Medical Record Limitations to Obtaining History: No Limitations - Past Medical History Endocrine: Yes: Diabetes Mellitus - Alcohol/Substance Use Hx Alcohol Use: No - Smoking History Smoking history: Never smoked Have you smoked in the past 12 months: No Aproximately how many cigarettes per day: 5 Home Medications - Allergies Allergies/Adverse Reactions: Allergies Allergy/AdvReac Type Severity Reaction Status Date / Time No Known Allergies Allergy Verified 02/17/19 17:40 - Home Medications Home Medications: Ambulatory Orders Insulin (Levemir) [Levemir Vial] 15 units SQ BID@0700,2200 #100 units 02/19/19 Insulin Sliding Scale [Novolog Vial Sliding Scale -] 1 vial SQ TIDAC #100 units 02/19/19 Review of Systems - Review of Systems Constitutional: denies: Chills, Fever, Loss of Appetite, Night Sweats Eyes: denies: Blurred Vision Cardiovascular: denies: Chest Pain, Edema Respiratory: denies: Cough, Hemoptysis, Orthopnea, SOB, SOB on Exertion, Wheezing Musculoskeletal: denies: Back Pain, Joint Pain, Joint Swelling Neurological: denies: Change in LOC, Change in Speech, Confusion Physical Exam Vital Signs: Vital Signs Temperature 98.4 F 02/18/19 10:00 Pulse Rate 92 H 02/18/19 12:00 Respiratory Rate 16 02/18/19 12:00 Blood Pressure 103/68 02/18/19 12:00 O2 Sat by Pulse Oximetry (%) 99 02/18/19 09:00 Constitutional: Yes: No Distress, Calm Eyes: Yes: Conjunctiva Clear. No: PERRL, Sclera Icterus Neck: Yes: Supple Cardiovascular: Yes: Regular Rate and Rhythm, S1, S2 Respiratory: Yes: CTA Bilaterally Gastrointestinal: Yes: Normal Bowel Sounds, Soft Edema: No Peripheral Pulses WNL: Yes Neurological: Yes: Alert, Oriented Labs: CBC, BMP 02/18/19 05:46 02/18/19 05:46 Imaging - Results Cat Scan: Image Reviewed Assessment/Plan Ambulatory Orders Insulin (Levemir) [Levemir Vial] 20 units SQ AM #10 units 06/27/18 Insulin Sliding Scale [Novolog Vial Sliding Scale -] 1 vial SQ ACHS #10 units Insulin (Levemir) [Levemir Vial] 15 units SQ BID@0700,2200 #7 units 02/18/19 Insulin Sliding Scale [Novolog Vial Sliding Scale -] 1 vial SQ TIDAC #7 units Current Medications Acetaminophen (Tylenol -) 650 mg PO Q6H PRN PRN Reason: PAIN OR FEVER Last Admin: 02/18/19 21:52 Dose: 650 mg Chlorhexidine Gluconate (Hibiclens For Decolonization -) 1 applic TP HS [facility] Last Admin: 02/18/19 21:55 Dose: 1 applic Insulin Aspart (Novolog Vial Sliding Scale -) 1 vial SQ TIDAC [facility]; Protocol Last Admin: 02/19/19 06:15 Dose: 3 unit Insulin Detemir (Levemir Vial) 15 units SQ BID@0700,2200 [facility] Last Admin: 02/19/19 06:14 Dose: 15 unit Mupirocin (Bactroban Ointment (For Decolonization) -) 1 applic NS BID KATHRYN Stop: 02/22/19 21:59 Last Admin: 02/19/19 09:53 Dose: 1 applic Microbiology 02/17/19 20:30 Urine - Urine Clean Catch Urine Culture - Final Normal Urogenital Karen Assessment/Plan: 23 yo F with DM, DKA, C/section for , and incidental R lung base bulla DM, DKA, C/section for , incidental R lung base bulla Plan: incidental R lung base bulla- imaging discussed with radiology R bullae seen in prior xrays from 2012, same size New infitrate noted which is probably new Pt low risk for TB, PPD mounted, to be read Aspergiollosis serologies sent, fungitell, and galactomannan-no hemoptyis, no cough, no wheeze, no asthma hx Pt would need follow up images as out pt Follow up with pulm as outpt No clear bronchiectactic picture noted, unclear hx from mother D/W Dr Braydon Israel PGY 3 Infectious Disease rotation Visit type - Emergency Visit Emergency Visit: Yes ED Registration Date: 02/17/19 Care time: The patient presented to the Emergency Department on the above date and was hospitalized for further evaluation of their emergent condition. - New Patient This patient is new to me today: Yes Date on this admission: 02/19/19 - Critical Care Critical Care patient: Yes Total Critical Care Time (in minutes): 29 ATTENDING PHYSICIAN STATEMENT I saw and evaluated the patient. I reviewed the resident's note and discussed the case with the resident. I agree with the resident's findings and plan as documented. SUBJECTIVE: OBJECTIVE: ASSESSMENT AND PLAN:
[2019-02-18] MEDS: INSULIN SLIDING SCALE (NOVOLOG) 1 VIAL SQ SCH (17:02)
[2019-02-18] MEDS: MUPIROCIN 2% TOPICAL OINTMENT FOR DECOLONIZATION NS SCH (21:55)
[2019-02-18] MEDS ORDERED: HEPARIN NA (PORCINE) 5,000 UNITS/ML 1ML VIAL SQ SCH (22:00)
[2019-02-18] MEDS ORDERED: CHLORHEXIDINE GLUCONATE 4% CLEANSER FOR DECOLONIZATION TP SCH (22:00)
[2019-02-18] MEDS ORDERED: INSULIN (LEVEMIR) 100 UNITS/ML UNITS SQ SCH ×2 (22:00)
[2019-02-18] MEDS: INSULIN (LEVEMIR) 100 UNITS/ML UNITS SQ SCH (22:15)
[2019-02-19] MEDS: INSULIN (LEVEMIR) 100 UNITS/ML UNITS SQ SCH (06:14)
[2019-02-19] MEDS: INSULIN SLIDING SCALE (NOVOLOG) 1 VIAL SQ SCH ×2 (06:15→11:54)
[2019-02-19 06:52] LABS: HEMATOCRIT 36.1 % (32.4-45.2); HEMOGLOBIN 12.6 GM/dL (10.7-15.3); MCH 30.7 pg (25.7-33.7); MCHC 35.1 g/dl (32.0-36.0); MEAN CELL VOLUME 87.6 fl (80-96); MEAN PLT VOLUME 8.3 fl (7.5-11.1); PLATELET COUNT 231 K/MM3 (134-434); RBC 4.12 M/mm3 (3.60-5.2); RDW 11.7 % (11.6-15.6); WHITE BLOOD COUNT 4.6 K/mm3 (4.0-10.0)
[2019-02-19 07:12] LABS: BLOOD UREA NITROGEN 5.9 mg/dL (7-18); CALCIUM 8.1 mg/dL (8.5-10.1); CREATININE 0.5 mg/dL (0.55-1.3); MAGNESIUM 1.6 mg/dL (1.8-2.4); PHOSPHOROUS 2.7 mg/dL (2.5-4.9); POTASSIUM 3.5 mmol/L (3.5-5.1)
[2019-02-19] MEDS ORDERED: MAGNESIUM OXIDE 400 MG TABLET (FP) PO ONE ×2 (07:35→08:30)
--- NOTE | 2019-02-19 09:03 | PN ---
Progress Note (short form) - Note Progress Note: Feels better, Apetite good Vital Signs Period Temp Pulse Resp BP Sys/Steele Pulse Ox Last 24 Hr 97.9 F-98.4 F 80-101 13-18 88-113/64-83 99 PE: AOx3 Neck: Supple, No JVD Lungs: CTA CVS: S1S2 Abd: Benign Ext: No edema Neuro: No focal deficit CMP Sodium 144 mmol/L (136-145) 02/19/19 06:10 Potassium 3.5 mmol/L (3.5-5.1) 02/19/19 06:10 Chloride 110 mmol/L (98-107) H 02/19/19 06:10 Carbon Dioxide 26 mmol/L (21-32) 02/19/19 06:10 Anion Gap 7 MMOL/L (8-16) L 02/19/19 06:10 BUN 5.9 mg/dL (7-18) L 02/19/19 06:10 Creatinine 0.5 mg/dL (0.55-1.3) L 02/19/19 06:10 Est GFR (CKD-EPI)AfAm 155.90 02/19/19 06:10 Est GFR (CKD-EPI)NonAf 134.52 02/19/19 06:10 POC Glucometer 178 UNITS (80-120) 02/19/19 06:05 Random Glucose 177 mg/dL (74-106) H 02/19/19 06:10 Hemoglobin A1c % 13.7 % (4.2-6.3) H 02/17/19 19:15 Lactic Acid 1.7 mmol/L (0.4-2.0) 02/17/19 23:00 Calcium 8.1 mg/dL (8.5-10.1) L 02/19/19 06:10 Phosphorus 2.7 mg/dL (2.5-4.9) 02/19/19 06:10 Magnesium 1.6 mg/dL (1.8-2.4) L 02/19/19 06:10 Total Bilirubin 0.4 mg/dL (0.2-1) 02/18/19 05:46 AST 9 U/L (15-37) L 02/18/19 05:46 ALT 16 U/L (13-61) 02/18/19 05:46 Alkaline Phosphatase 78 U/L (45-117) 02/18/19 05:46 Creatine Kinase 42 U/L (26-192) 02/17/19 23:30 Troponin I < 0.02 ng/ml (0.00-0.05) 02/17/19 23:30 B-Natriuretic Peptide 8.4 pg/ml (5-125) 02/18/19 00:00 Total Protein 5.9 g/dl (6.4-8.2) L 02/18/19 05:46 Albumin 3.2 g/dl (3.4-5.0) L 02/18/19 05:46 Beta-Hydroxybutyrate > 46.0 mg/dL (0.2-2.8) H 02/17/19 19:05 Serum , Qual Negative 02/17/19 23:30 Current Medications Generic Name Dose Route Start Last Admin Trade Name Freq PRN Reason Stop Dose Admin Acetaminophen 650 mg 02/18/19 11:56 02/18/19 21:52 Tylenol - PO 650 mg Q6H PRN Administration PAIN OR FEVER Chlorhexidine Gluconate 1 applic 02/18/19 22:00 02/18/19 21:55 Hibiclens For Decolonization - TP 1 applic HS KATHRYN Administration Insulin Aspart 1 vial 02/18/19 16:30 02/19/19 06:15 Novolog Vial Sliding Scale - SQ 3 unit TIDAC KATHRYN Administration Protocol Insulin Detemir 15 units 02/18/19 22:00 02/19/19 06:14 Levemir Vial SQ 15 unit BID@0700,2200 KAT[facility]YN Administration Mupirocin 1 applic 02/18/19 22:00 02/18/19 21:55 Bactroban Ointment (For Decolonization) - NS 02/22/19 21:59 1 applic BID KATHRYN Administration AP: DKA T1DM (dx age 20) Rt lung bulla/cyst with eccentric mural nodule posteriorly measuring 1.3x0.7cm: CT findings may be from residual infectious process Premature via (2018) Diet exercise discussed Nutrition consult Discussed need for OPh exam as outpt Levemir 15 units BID for now. PO as tolerated Continue D5 until pt is able have regular diet. Hydration and electrolyte replacement as necessary.
[2019-02-19] MEDS: MUPIROCIN 2% TOPICAL OINTMENT FOR DECOLONIZATION NS SCH (09:53)
[2019-02-19 10:24] VITALS: TEMP 97.3
--- NOTE | 2019-02-19 10:38 | PN ---
Progress Note (short form) - Note Progress Note: ID consult per resident's noted patient seen and examined admitted for DKA noncompliance with meds asked to see for right lung lesion-nonsmoker (marijuana only, no cigarettes) xrays/ct scan reviewed with radiology she has had a bullous lesion in her right lung base since at least 2011 ( evident on cxray) there is a small nodular component at the base on the CT scan- not sure how long it has been there, not evident on xrays not c/w fungal or mycobacterial disease she has no pulmonary symptoms PPD has been placed can send aspergillus serology as well counselled about need to improve her diabetes management HIV negative last year, not sexually active since her baby was born should f/u with pulmonary as outpt Problem List - Problems (1) Bulla of lung Code(s): J43.9 - EMPHYSEMA, UNSPECIFIED (2) DKA (diabetic ketoacidoses) Code(s): E13.10 - OTH DIABETES MELLITUS WITH KETOACIDOSIS WITHOUT COMA
--- NOTE | 2019-02-19 10:47 | PN ---
Physical Exam: SUBJECTIVE: Patient seen and examined at bedside, pt has no acute complaints. pt denies abdominal pain, n/v/d. OBJECTIVE: Vital Signs Period Temp Pulse Resp BP Sys/Steele Pulse Ox Last 24 Hr 97.3 F-98.2 F 80-101 13-18 101-113/67-83 99-99 GENERAL: The patient is awake, alert, and fully oriented, in no acute distress. LUNGS: Breath sounds equal, clear to auscultation bilaterally, no wheezes, no crackles, no accessory muscle use. HEART: Regular rate and rhythm, S1, S2 without murmur, rub or gallop. ABDOMEN: Soft, nontender, nondistended, normoactive bowel sounds, no guarding EXTREMITIES: 2+ pulses, warm, well-perfused, no edema. SKIN: Warm, dry, normal turgor, no rashes or lesions noted Laboratory Results - last 24 hr 02/19/19 02/19/19 02/19/19 06:05 06:10 06:10 WBC 4.6 RBC 4.12 Hgb 12.6 Hct 36.1 MCV 87.6 MCH 30.7 MCHC 35.1 RDW 11.7 Plt Count 231 MPV 8.3 Sodium 144 Potassium 3.5 Chloride 110 H Carbon Dioxide 26 Anion Gap 7 L BUN 5.9 L Creatinine 0.5 L Est GFR (CKD-EPI)AfAm 155.90 Est GFR (CKD-EPI)NonAf 134.52 POC Glucometer 178 Random Glucose 177 H Calcium 8.1 L Phosphorus 2.7 Magnesium 1.6 L Current Medications Acetaminophen (Tylenol -) 650 mg PO Q6H PRN PRN Reason: PAIN OR FEVER Last Admin: 02/18/19 21:52 Dose: 650 mg Chlorhexidine Gluconate (Hibiclens For Decolonization -) 1 applic TP HS [facility] Last Admin: 02/18/19 21:55 Dose: 1 applic Insulin Aspart (Novolog Vial Sliding Scale -) 1 vial SQ TIDAC [facility]; Protocol Last Admin: 02/19/19 06:15 Dose: 3 unit Insulin Detemir (Levemir Vial) 15 units SQ BID@0700,2200 [facility] Last Admin: 02/19/19 06:14 Dose: 15 unit Mupirocin (Bactroban Ointment (For Decolonization) -) 1 applic NS BID [facility] Stop: 02/22/19 21:59 Last Admin: 02/19/19 09:53 Dose: 1 applic ASSESSMENT/PLAN: Spiral CT spiral : No evidence of urolithiasis or obstructive uropathy. Cholelithiasis is noted. There is also possible milk of calcium bile. The partially imaged lower chest demonstrates a 4.8 x 3.3 cm right lower lobe bulla/ cyst with an eccentric mural nodule posteriorly measuring 1.3 x 0.7 cm. Pulmonary consultation is suggested in regards to follow-up evaluation/ management. ASSESSMENT/PLAN: 23 y/o F with PMH IDDM (dx age 20), premature via (2018), who presented for nausea, emesis, L flank pain over the past day. Admitted to ICU for DKA. Neuro -AAO x 3, neuro intact -tylenol for pain/headache Endocrine DKA 2/2 medication non-compliance -flank pain, abdominal pain resolved -BG 677, HCO3 13, b-hydroxy(+), AG 21, VBG pH 7.17. ABG reviewed -AG now closed -no current signs of infection. UA (-) Ucx, CXR neg to date -s/p insulin drip -Levemir 15 BID while in hospital as per endo recs. pt counselled on importance of insulin compliance at home -BGM , ISS ACHS -Nutrition consult -health style maintenance discussed with pt, recommending ophthalmology consult outpt -endo recs appreciated -pt should f/u w/ PMD outpt Pulm -hx 4.8 x 3.3cm RLL bulla/cyst on CT -f/u ppd. pt advised to follow up with PMD or resident clinic to evaluate PPD -CT chest w/o contrast to further eval bulla/cyst -f/u outpt F/E/N -continue to follow lytes -diabetic diet DVT PPX:hep 5k SQ TID Dispo: d/c as per primary team Visit type - Emergency Visit Emergency Visit: No - New Patient This patient is new to me today: No - Critical Care Critical Care patient: Yes Total Critical Care Time (in minutes): 36 Critical Care Statement: The care of this patient involved high complexity decision making to prevent further life threatening deterioration of the patient 's condition and/or to evaluate & treat vital organ system(s) failure or risk of failure. ATTENDING PHYSICIAN STATEMENT I saw and evaluated the patient. I reviewed the resident's note and discussed the case with the resident. I agree with the resident's findings and plan as documented. SUBJECTIVE: OBJECTIVE: ASSESSMENT AND PLAN:
--- NOTE | 2019-02-19 12:07 | PN ---
Teaching Attending Note Name of Resident: Ly Bond ATTENDING PHYSICIAN STATEMENT I saw and evaluated the patient. I reviewed the resident's note and discussed the case with the resident. I agree with the resident's findings and plan as documented. SUBJECTIVE: Pt seen and examined in the ICU. No overnight events. No specific complaints. OBJECTIVE: Vital Signs Period Temp Pulse Resp BP Sys/Steele Pulse Ox Last 24 Hr 97.3 F-98.2 F 80-101 13-18 101-113/67-83 99-99 Intake & Output 02/16/19 02/17/19 02/18/19 02/19/19 23:59 23:59 23:59 23:59 Intake Total 1498.6 150 Balance 1498.6 150 Weight 40.8 kg 40.823 kg 41.232 kg Gen: NAD at rest Heart: RRR Lung: decreased breath sounds at the bases Abd: soft, nontender Ext: no edema CBC, BMP 02/19/19 06:10 02/19/19 06:10 Active Medications Acetaminophen (Tylenol -) 650 mg PO Q6H PRN PRN Reason: PAIN OR FEVER Last Admin: 02/18/19 21:52 Dose: 650 mg Chlorhexidine Gluconate (Hibiclens For Decolonization -) 1 applic TP HS [facility] Last Admin: 02/18/19 21:55 Dose: 1 applic Insulin Aspart (Novolog Vial Sliding Scale -) 1 vial SQ TIDAC [facility]; Protocol Last Admin: 02/19/19 11:54 Dose: 4 unit Insulin Detemir (Levemir Vial) 15 units SQ BID@0700,2200 [facility] Last Admin: 02/19/19 06:14 Dose: 15 unit Mupirocin (Bactroban Ointment (For Decolonization) -) 1 applic NS BID [facility] Stop: 02/22/19 21:59 Last Admin: 02/19/19 09:53 Dose: 1 applic ASSESSMENT AND PLAN: Diabetic Ketoacidosis improved Likely Bronchogenic Cyst - glucose control - PO as tolerated - DVT prophylaxis - can monitor on floor or d/c home
--- NOTE | 2019-02-19 13:15 | DS ---
Physical Examination Vital Signs: Vital Signs Temperature 97.3 F L 02/19/19 10:00 Pulse Rate 96 H 02/19/19 10:00 Respiratory Rate 18 02/19/19 10:00 Blood Pressure 105/73 02/19/19 10:00 O2 Sat by Pulse Oximetry (%) 99 02/19/19 09:00 Constitutional: Yes: No Distress HENT: Yes: Atraumatic Neck: Yes: Supple Cardiovascular: Yes: Regular Rate and Rhythm Respiratory: Yes: CTA Bilaterally Gastrointestinal: Yes: Normal Bowel Sounds Extremities: Yes: WNL Edema: No Neurological: Yes: Alert, Oriented Labs: CBC, BMP 02/19/19 06:10 02/19/19 06:10 Discharge Summary Problems reviewed: Yes Reason For Visit: DIABETIC KETOACIDOSIS Current Active Problems DKA (diabetic ketoacidoses) (Acute) Condition: Guarded - Instructions Diet, Activity, Other Instructions: see your pmd 2-3days Referrals: Brenda Bryson MD [Staff Physician] - Barb Barragan MD [Primary Care Provider] - French Hayes MD, MD [Staff Physician] - Alanis Galeano MD [Staff Physician] - Disposition: HOME - Home Medications Comprehensive Discharge Medication List: Ambulatory Orders Insulin (Levemir) [Levemir Vial] 15 units SQ BID@0700,2200 #100 units 02/19/19 Insulin Sliding Scale [Novolog Vial Sliding Scale -] 1 vial SQ TIDAC #100 units 02/19/19 dc home fu pmd pt has insulin
[2019-02-19 13:43] VITALS: PULSE 91
[2019-02-19 15:02] VITALS: BP 111/77
[2019-02-25 20:06] LABS: ASPERGIL AG 0.12 Index (0.00-0.49)
== END 2019-02-19 15:30 | disposition home or self-care (01) | DRG 420 ==
LOC: JER 17:35 → JERBED 19:42 → JICU 22:57
PROVIDERS: ADMIT Internal Medicine; ATTEND Internal Medicine
DX: E10.10 Type 1 diabetes mellitus with ketoacidosis without coma (principal); J43.9 Emphysema, unspecified; R35.8 Other polyuria; Z91.14 Patient's other noncompliance with medication regimen; R63.0 Anorexia; K80.20 Calculus of gallbladder without cholecystitis without obstruction; R11.2 Nausea with vomiting, unspecified; R10.9 Unspecified abdominal pain; E43 Unspecified severe protein-calorie malnutrition; E83.42 Hypomagnesemia; F12.90 Cannabis use, unspecified, uncomplicated; Z68.1 Body mass index [BMI] 19.9 or less, adult
CPT/HCPCS: 36415; 36600; 71045-TC-FY; 71250-TC; 74176-TC; 80048; 80053; 81003; 82010; 82375; 82550; 82803; 82962; 83036; 83050; 83605; 83735; 83880; 84100; 84484; 84703; 85025; 85027; 87086; 87305; 87449; 93005; 93010; 99285-25; J1644; J7030

== ENCOUNTER 2019-04-29 06:13 | Inpatient (IN) | payer OTHER ==
[2019-04-29] MEDS ORDERED: SODIUM CHLORIDE 1,000 ML IV STA ×3 (06:32)
[2019-04-29 07:05] LABS: BASO % 0.1 % (0-2.0); HEMATOCRIT 52.3 % (32.4-45.2); HEMOGLOBIN 17.5 GM/dL (10.7-15.3); LYMPH % 13.1 % (8-40); MCH 30.9 pg (25.7-33.7); MCHC 33.3 g/dl (32.0-36.0); MEAN CELL VOLUME 92.8 fl (80-96); MEAN PLT VOLUME 8.8 fl (7.5-11.1); MONO % 3.4 % (3.8-10.2); NEUT % 83.4 % (42.8-82.8); PLATELET COUNT 448 K/MM3 (134-434); RBC 5.64 M/mm3 (3.60-5.2); RDW 13.4 % (11.6-15.6); WHITE BLOOD COUNT 8.7 K/mm3 (4.0-10.0)
[2019-04-29 07:12] LABS: ARTERIAL BLD GAS O2 SATURATION 97.2 % (95-98); ARTERIAL BLOOD GAS BASE EXCESS -24.1 meq/l (-2-2); ARTERIAL BLOOD GAS PCO2 15.3 mmHg (35-45); ARTERIAL BLOOD GAS PO2 124 mmHg (80-100)
[2019-04-29 07:13] LABS: INR 0.92 (0.83-1.09); PROTHROMBIN TIME (PATIENT) 10.9 SEC (9.7-13.0)
[2019-04-29 07:13] LABS: ALLENS TEST POSITIVE
[2019-04-29 07:15] LABS: ARTERIAL BLOOD GAS pH 7.13 (7.35-7.45)
[2019-04-29 07:16] LABS: ACTIVATED PTT 30.5 SECONDS (25.2-36.5)
--- NOTE | 2019-04-29 07:17 | PDOC ---
History of Present Illness - General Chief Complaint: Nausea/Vomiting Stated Complaint: BODYACHES,VOMITING Time Seen by Provider: 04/29/19 07:15 History Source: Patient - History of Present Illness Initial Comments: 04/29/19 07:43 Ms. Jara is a 23 y/o woman with hx T1DM p/w three days of intractable nausea, vomiting, and difficulty controlling her blood sugar. She reports that approx three days ago she became nauseated with multiple episodes nbnb vomiting. She reports that she has been measuring her blood sugar and noted spikes, ranging from the 400s to the 150s despite minimal food intake secondary to vomiting. She reports chills, mild pain in her chest, abdominal cramping, and generalized weakness that all began after multiple episodes of vomiting. Two months ago she was admitted to the ICU for DKA management. At that time she was having difficulty managing a new insulin injector pen. Past History - Past Medical History Allergies/Adverse Reactions: Allergies Allergy/AdvReac Type Severity Reaction Status Date / Time No Known Allergies Allergy Verified 04/29/19 06:41 Home Medications: Ambulatory Orders Insulin (Levemir) [Levemir Vial] 15 units SQ BID@0700,2200 #100 units 02/19/19 Insulin Sliding Scale [Novolog Vial Sliding Scale -] 1 vial SQ TIDAC #100 units 02/19/19 Cardiac Disorders: Yes (HEART MURMUR) COPD: No CHF: No Diabetes: Yes HTN: No Hypercholesterolemia: No Thyroid Disease: No - Immunization History Immunization Up to Date: Yes - Psycho Social/Smoking Cessation Hx Smoking Status: No Smoking History: Never smoked Have you smoked in the past 12 months: No Number of Cigarettes Smoked Daily: 5 Hx Alcohol Use: No Drug/Substance Use Hx: No Substance Use Type: None Review of Systems - Review of Systems Able to Perform ROS?: Yes Comments:: 04/29/19 07:49 ROS: GENERAL/CONSTITUTIONAL: Weakness, chills. No fever. HEAD, EYES, EARS, NOSE AND THROAT: No change in vision. No ear pain or discharge. No sore throat. CARDIOVASCULAR: Chest pain. No shortness of breath RESPIRATORY: No cough, wheezing, or hemoptysis. GASTROINTESTINAL: Nausea, vomiting. No diarrhea or constipation. GENITOURINARY: No dysuria, frequency, or change in urination. MUSCULOSKELETAL: No joint or muscle swelling or pain. No neck or back pain. SKIN: No rash NEUROLOGIC: No headache, vertigo, loss of consciousness, or change in strength/ sensation. ENDOCRINE: No increased thirst. No abnormal weight change HEMATOLOGIC/LYMPHATIC: No anemia, easy bleeding, or history of blood clots. ALLERGIC/IMMUNOLOGIC: No hives or skin allergy. *Physical Exam - Vital Signs Last Vital Signs Temp Pulse Resp BP Pulse Ox 98.9 F 121 H 19 114/79 99 04/29/19 06:15 04/29/19 06:15 04/29/19 06:15 04/29/19 06:15 04/29/19 06:15 - Physical Exam 04/29/19 07:50 PE: GENERAL: Fatigued appearing. Awake, alert, and fully oriented HEAD: No signs of trauma, normocephalic, atraumatic EYES: PERRLA, EOMI, sclera anicteric, conjunctiva clear ENT: Auricles normal inspection, hearing grossly normal, nares patent, oropharynx clear without exudates. Moist mucosa NECK: Normal ROM, supple, no lymphadenopathy, JVD, or masses LUNGS: No distress, speaks full sentences, clear to auscultation bilaterally HEART: Regular rate and rhythm, normal S1 and S2, no murmurs, rubs or gallops, peripheral pulses normal and equal bilaterally. ABDOMEN: Mild generalized tenderness. Soft, normoactive bowel sounds. No guarding, no rebound. No masses EXTREMITIES : Normal inspection, Normal range of motion, no edema. No clubbing or cyanosis NEUROLOGICAL: Cranial nerves II through XII grossly intact. Normal speech, normal gait, no focal sensorimotor deficits SKIN: Warm, Dry, normal turgor, no rashes or lesions noted ED Treatment Course - LABORATORY CBC & Chemistry Diagram: 04/29/19 06:50 04/29/19 06:50 - ADDITIONAL ORDERS Additional order review: Laboratory Results 04/29/19 04/29/19 04/29/19 07:02 07:02 06:50 PT with INR 10.90 INR 0.92 Puncture Site Left radial ABG pH 7.13 L* ABG pCO2 at Pt Temp 15.3 L ABG pO2 at Pt Temp 124 H ABG HCO3 4.8 L ABG O2 Sat (Measured) 97.2 ABG O2 Content 21.1 ABG Base Excess -24.1 L Rasheed Test Positive Carboxyhemoglobin Cancelled 1.0 Methemoglobin Cancelled < 1.0 O2 Delivery Device Room air Oxygen Flow Rate 21% POC Glucometer 04/29/19 06:28 PT with INR INR Puncture Site ABG pH ABG pCO2 at Pt Temp ABG pO2 at Pt Temp ABG HCO3 ABG O2 Sat (Measured) ABG O2 Content ABG Base Excess Rasheed Test Carboxyhemoglobin Methemoglobin O2 Delivery Device Oxygen Flow Rate POC Glucometer 509 04/29/19 04/29/19 06:50 06:28 RBC 5.64 H MCV 92.8 MCHC 33.3 RDW 13.4 D MPV 8.8 Neutrophils % 83.4 H D Lymphocytes % 13.1 D Monocytes % 3.4 L Eosinophils % 0.0 D Basophils % 0.1 POC Glucometer 509 Medical Decision Making - Medical Decision Making 04/29/19 07:51 23F w/hx T1DM, prior episodes of DKA, p/w N/V x3 days, initial glucose to 500s, pH 7.1, consistent with DKA. No infectious signs or symptoms noted. Plan: CBC CMP Cardiac profile VBG Beta hydroxybutyrate 1L IV NS Insulin drip pending Potassium result Dispo: Admit Discharge - Discharge Information Problems reviewed: Yes Clinical Impression/Diagnosis: DKA (diabetic ketoacidoses) Qualifiers: Diabetes mellitus type: type 1 Diabetes mellitus complication detail: without coma Qualified Code(s): E10.10 - Type 1 diabetes mellitus with ketoacidosis without coma Condition: Fair - Admission Yes - Follow up/Referral - Patient Discharge Instructions - Post Discharge Activity
[2019-04-29 08:43] LABS: EPI CELLS 0.6 /HPF (0-5/HPF); HYALINE CASTS 2 /lpf (0-8); URINE APPEARANCE CLEAR; URINE BACTERIA 16.5 /hpf (NEGATIVE); URINE BILIRUBIN NEGATIVE (NEGATIVE); URINE COLOR YELLOW; URINE GLUCOSE (UA) 3+ (NEGATIVE); URINE KETONE 3+ (NEGATIVE); URINE LEUK ESTERASE NEGATIVE (NEGATIVE); URINE NITRITE NEGATIVE (NEGATIVE); URINE PROTEIN 1+ (NEGATIVE); URINE RBC 0 /hpf (0-4); URINE UROBILINOGEN 0.2 mg/dL (0.2-1.0); URINE WBC 0 /hpf (0-5)
[2019-04-29 09:22] LABS: ALBUMIN 3.8 g/dl (3.4-5.0); ALK PHOS 70 U/L (45-117); ANION GAP 26 MMOL/L (8-16); BILIRUBIN,TOTAL 0.4 mg/dL (0.2-1); BLOOD UREA NITROGEN 19.4 mg/dL (7-18); CALCIUM 7.9 mg/dL (8.5-10.1); CHLORIDE 102 mmol/L (98-107); CO2 7 mmol/L (21-32); CREATININE 1.1 mg/dL (0.55-1.3); POTASSIUM 4.8 mmol/L (3.5-5.1); SGOT/AST 13 U/L (15-37); SGPT/ALT 22 U/L (13-61); SODIUM 135 mmol/L (136-145); TOT PROT 6.9 g/dl (6.4-8.2)
[2019-04-29] MEDS ORDERED: POTASSIUM CHLORIDE 20 MEQ PREMIX IVPB 100 ML IVPB ONE (09:28)
[2019-04-29] MEDS ORDERED: INSULIN REGULAR 100 UNITS in SODIUM CHLORIDE 99 ML IVPB SCH (09:30)
--- NOTE | 2019-04-29 09:42 | EKG ---
Test Reason : Blood Pressure : / mmHG Vent. Rate : 135 BPM Atrial Rate : 135 BPM P-R Int : 116 ms QRS Dur : 080 ms QT Int : 314 ms P-R-T Axes : 080 081 006 degrees QTc Int : 471 ms SINUS TACHYCARDIA RIGHT ATRIAL ENLARGEMENT ABNORMAL ECG WHEN COMPARED WITH ECG OF 17-FEB-2019 20:02, NONSPECIFIC T WAVE ABNORMALITY, WORSE IN ANTEROLATERAL LEADS Confirmed by MD Dakota, Brandon ([id number]) on 04/29/2019 9:41:54 AM Referred By: Confirmed By:Brandon Duncan MD
[2019-04-29 10:03] LABS: GLUCOSE,RANDOM 528 mg/dL (74-106)
--- NOTE | 2019-04-29 10:11 | PDOC ---
Documentation entered by Nimesh Arnold SCRIBE, acting as scribe for Jenna Schultz MD. Jenna Schultz MD: This documentation has been prepared by the Catalina nelson Nirvannie, SCRIBE, under my direction and personally reviewed by me in its entirety. I confirm that the documentation accurately reflects all work, treatment, procedures, and medical decision making performed by me. Attending Attestation - Resident Resident Name: Rey Gibson - ED Attending Attestation I have performed the following: I have examined & evaluated the patient, The case was reviewed & discussed with the resident, I agree w/resident's findings & plan, Exceptions are as noted - HPI HPI: 04/29/19 10:13 The patient is a 23 year old female, with a significant past medical history of DM and recent admission to [facility] for DKA (02/17-02/19), who presents to the emergency department with, 3 days of progressively worsening nausea with NBNB emesis and fluctuating blood glucose levels. As per patient, she has been experiencing blood glucose levels fluctuating from 150s to 400s with associated nausea with multiple episodes of emesis. She notes associated abdominal discomfort described as cramping, generalized weakness, and chills, and mild chest discomfort secondary to vomiting. She denies recent fevers, chills, headache or dizziness. She denies recent nausea, vomit, diarrhea or constipation. She denies recent dysuria, frequency, urgency or hematuria. She denies recent chest pain or shortness of breath. Allergies: NKDA - Physicial Exam PE: 04/29/19 09:51 GENERAL: Awake, alert, and fully oriented, in no acute distress. Very thin. HEAD: No signs of trauma EYES: PERRLA, EOMI, sclera anicteric, conjunctiva clear ENT: Oropharynx clear without exudates. Very dry MM NECK: Normal ROM, supple, no lymphadenopathy, JVD, or masses LUNGS: Breath sounds equal, clear to auscultation bilaterally. No wheezes, and no crackles HEART: Regular rate and rhythm, normal S1 and S2, no murmurs, rubs or gallops ABDOMEN: Soft, nontender, normoactive bowel sounds. No guarding, no rebound. No masses EXTREMITIES: Normal range of motion, no edema. No cords, erythema, or tenderness. WWP. NEUROLOGICAL: Normal speech, cranial nerves intact, equal strength and sensation b/l SKIN: Warm, Dry, normal turgor, no rashes or lesions noted. - Medical Decision Making 04/29/19 09:54 23-year-old female with a history of type 1 diabetes (diagnosed at age 18, covers her carbs as needed) presents emergency department with 3 days of feeling unwell, nausea, nonbloody nonbilious emesis. Patient found to be in DKA. Anion gap is 26, glucose is 500. Insulin drip initiated 0.1 unit/kg. Potassium is 4.3, as such will supplements IV supplement with runs IV as well as in her fluids. At this time, patient denies any fevers, productive cough or infectious symptoms. She does report missing doses of insulin at times, especially when she is working more. DKA likely secondary to poor insulin coverage as opposed to infectious etiology, however will obtain urinalysis and chest x-ray and have a low threshold to cover empirically. Anticipate admission to the ICU.
[2019-04-29] MEDS ORDERED: SODIUM CHLORIDE 0.9%/KCL 20 MEQ/1,000 ML INFUS.BAG IV STA (11:32)
--- NOTE | 2019-04-29 11:40 | CONSULT ---
Consultation: REQUESTING PROVIDER: CONSULT REQUEST: ICU management HISTORY OF PRESENT ILLNESS: patient has had prior admissions due to DKA in the past- last admission was back in february. she states she is compliant with her meds, she uses levemir 30 BID and in addition uses a sliding scale prior to meals. she states she checks her sugars mostly three times a day unless shes working than she checks it once a day. she states she has been having a fever since sunday with associated vomiting, no diarrhea - denies sick contacts . she has had one episode of vomiting since coming to the ED . ED course was notable for : PH 7.13, CO2 7, AG 26 Glucose 528 K 4.8 corrected Na 142 Beta- Hydroxybuturate 118 +ketones in urine ; patient was started on insulin drip in addition to NS w/ 20meq KCL REVIEW OF SYSTEMS: CONSTITUTIONAL: Absent: fever, chills, diaphoresis, generalized weakness, malaise, loss of appetite, weight change HEENT: Absent: rhinorrhea, nasal congestion, throat pain, throat swelling, difficulty swallowing, mouth swelling, ear pain, eye pain, visual changes CARDIOVASCULAR: Absent: chest pain, syncope, palpitations, irregular heart rate, lightheadedness , peripheral edema RESPIRATORY: Absent: cough, shortness of breath, dyspnea with exertion, orthopnea, wheezing, stridor, hemoptysis GASTROINTESTINAL: Present: nausea/vomiting Absent: abdominal pain, abdominal distension, diarrhea , constipation, melena, hematochezia GENITOURINARY: Absent: dysuria, frequency, urgency, hesitancy, hematuria, flank pain, genital pain MUSCULOSKELETAL: Absent: myalgia, arthralgia, joint swelling, back pain, neck pain SKIN: Absent: rash, itching, pallor HEMATOLOGIC/IMMUNOLOGIC: Absent: easy bleeding, easy bruising, lymphadenopathy, frequent infections ENDOCRINE: Absent: unexplained weight gain, unexplained weight loss, heat intolerance, cold intolerance NEUROLOGIC: Absent: headache, focal weakness or paresthesias, dizziness, unsteady gait, seizure, mental status changes, bladder or bowel incontinence PSYCHIATRIC: Absent: anxiety, depression, suicidal or homicidal ideation, hallucinations. PHYSICAL EXAMINATION Vital Signs - 24 hr 04/29/19 04/29/19 06:15 10:20 Temperature 98.9 F Pulse Rate 121 H 127 H Respiratory 19 Rate Blood Pressure 114/79 O2 Sat by Pulse 99 98 Oximetry (%) GENERAL: Awake, alert, and fully oriented, in no acute distress. EYES:PEERLA; EOMI; no scleral icterus EARS, NOSE, THROAT:dry mucous membranes NECK: no JVD; no lymphasenopathy LUNGS: CTA B/L; no rales, rhonchi or wheezing HEART: tachycardic, regular rhythm,, normal S1 and S2 without murmur, rub or gallop. ABDOMEN: Soft, NT/ND +BS in all 4 quadrants MUSCULOSKELETAL: Normal range of motion at all joints. No bony deformities or tenderness. No CVA tenderness. EXTREMITIES: warm; well-perfused no clubbing/cyanosis or edema NEUROLOGICAL: Cranial nerves II-XII intact. Normal speech. Normal gait. PSYCHIATRIC: Cooperative. Good eye contact. Appropriate mood and affect. SKIN: Warm, dry, normal turgor, no rashes or lesions noted. Laboratory Results - last 24 hr 04/29/19 04/29/19 04/29/19 06:28 06:50 06:50 WBC RBC Hgb Hct MCV MCH MCHC RDW Plt Count MPV Absolute Neuts (auto) Neutrophils % Lymphocytes % Monocytes % Eosinophils % Basophils % Nucleated RBC % PT with INR INR PTT (Actin FS) Puncture Site ABG pH ABG pCO2 at Pt Temp ABG pO2 at Pt Temp ABG HCO3 ABG O2 Sat (Measured) ABG O2 Content ABG Base Excess Rasheed Test Carboxyhemoglobin Methemoglobin O2 Delivery Device Oxygen Flow Rate Sodium Cancelled Potassium Cancelled Chloride Cancelled Carbon Dioxide Cancelled Anion Gap Cancelled BUN Cancelled Creatinine Cancelled Est GFR (CKD-EPI)AfAm Cancelled Est GFR (CKD-EPI)NonAf Cancelled POC Glucometer 509 Random Glucose Cancelled Calcium Cancelled Total Bilirubin Cancelled AST Cancelled ALT Cancelled Alkaline Phosphatase Cancelled Creatine Kinase Cancelled Troponin I Cancelled Cancelled Total Protein Cancelled Albumin Cancelled Beta-Hydroxybutyrate Cancelled Serum , Qual Urine Color Urine Appearance Urine pH Ur Specific [place] Urine Protein Urine Glucose (UA) Urine Ketones Urine Blood Urine Nitrite Urine Bilirubin Urine Urobilinogen Ur Leukocyte Esterase Urine WBC (Auto) Urine RBC (Auto) Urine Casts (Auto) U Epithel Cells (Auto) Urine Bacteria (Auto) 04/29/19 04/29/19 04/29/19 06:50 06:50 07:02 WBC 8.7 RBC 5.64 H Hgb 17.5 H Hct 52.3 H D MCV 92.8 MCH 30.9 MCHC 33.3 RDW 13.4 D Plt Count 448 H D MPV 8.8 Absolute Neuts (auto) 7.3 Neutrophils % 83.4 H D Lymphocytes % 13.1 D Monocytes % 3.4 L Eosinophils % 0.0 D Basophils % 0.1 Nucleated RBC % 0 PT with INR 10.90 INR 0.92 PTT (Actin FS) 30.5 Puncture Site Left radial ABG pH 7.13 L* ABG pCO2 at Pt Temp 15.3 L ABG pO2 at Pt Temp 124 H ABG HCO3 4.8 L ABG O2 Sat (Measured) 97.2 ABG O2 Content 21.1 ABG Base Excess -24.1 L Rasheed Test Positive Carboxyhemoglobin 1.0 Methemoglobin < 1.0 O2 Delivery Device Room air Oxygen Flow Rate 21% Sodium Potassium Chloride Carbon Dioxide Anion Gap BUN Creatinine Est GFR (CKD-EPI)AfAm Est GFR (CKD-EPI)NonAf POC Glucometer Random Glucose Calcium Total Bilirubin AST ALT Alkaline Phosphatase Creatine Kinase Troponin I Total Protein Albumin Beta-Hydroxybutyrate Serum , Qual Urine Color Urine Appearance Urine pH Ur Specific [place] Urine Protein Urine Glucose (UA) Urine Ketones Urine Blood Urine Nitrite Urine Bilirubin Urine Urobilinogen Ur Leukocyte Esterase Urine WBC (Auto) Urine RBC (Auto) Urine Casts (Auto) U Epithel Cells (Auto) Urine Bacteria (Auto) 04/29/19 04/29/19 04/29/19 07:02 07:50 07:50 WBC RBC Hgb Hct MCV MCH MCHC RDW Plt Count MPV Absolute Neuts (auto) Neutrophils % Lymphocytes % Monocytes % Eosinophils % Basophils % Nucleated RBC % PT with INR INR PTT (Actin FS) Puncture Site ABG pH ABG pCO2 at Pt Temp ABG pO2 at Pt Temp ABG HCO3 ABG O2 Sat (Measured) ABG O2 Content ABG Base Excess Rasheed Test Carboxyhemoglobin Cancelled Methemoglobin Cancelled O2 Delivery Device Oxygen Flow Rate Sodium 135 L Potassium 4.8 Chloride 102 Carbon Dioxide 7 L Anion Gap 26 H BUN 19.4 H Creatinine 1.1 Est GFR (CKD-EPI)AfAm 80.81 Est GFR (CKD-EPI)NonAf 69.72 POC Glucometer Random Glucose 528 H* Calcium 7.9 L Total Bilirubin 0.4 AST 13 L ALT 22 Alkaline Phosphatase 70 Creatine Kinase 39 Cancelled Troponin I < 0.02 Cancelled Total Protein 6.9 Albumin 3.8 Beta-Hydroxybutyrate 118.7 H Serum , Qual Urine Color Urine Appearance Urine pH Ur Specific [place] Urine Protein Urine Glucose (UA) Urine Ketones Urine Blood Urine Nitrite Urine Bilirubin Urine Urobilinogen Ur Leukocyte Esterase Urine WBC (Auto) Urine RBC (Auto) Urine Casts (Auto) U Epithel Cells (Auto) Urine Bacteria (Auto) 04/29/19 04/29/19 04/29/19 07:50 07:50 08:15 WBC RBC Hgb Hct MCV MCH MCHC RDW Plt Count MPV Absolute Neuts (auto) Neutrophils % Lymphocytes % Monocytes % Eosinophils % Basophils % Nucleated RBC % PT with INR INR PTT (Actin FS) Puncture Site ABG pH ABG pCO2 at Pt Temp ABG pO2 at Pt Temp ABG HCO3 ABG O2 Sat (Measured) ABG O2 Content ABG Base Excess Rasheed Test Carboxyhemoglobin Methemoglobin O2 Delivery Device Oxygen Flow Rate Sodium Cancelled Potassium Cancelled Chloride Cancelled Carbon Dioxide Cancelled Anion Gap Cancelled BUN Cancelled Creatinine Cancelled Est GFR (CKD-EPI)AfAm Cancelled Est GFR (CKD-EPI)NonAf Cancelled POC Glucometer Random Glucose Cancelled Calcium Cancelled Total Bilirubin Cancelled AST Cancelled ALT Cancelled Alkaline Phosphatase Cancelled Creatine Kinase Troponin I Total Protein Cancelled Albumin Cancelled Beta-Hydroxybutyrate Serum , Qual Negative Urine Color Yellow Urine Appearance Clear Urine pH 5.0 Ur Specific [place] 1.023 Urine Protein 1+ H Urine Glucose (UA) 3+ H Urine Ketones 3+ H Urine Blood Negative Urine Nitrite Negative Urine Bilirubin Negative Urine Urobilinogen 0.2 Ur Leukocyte Esterase Negative Urine WBC (Auto) 0 Urine RBC (Auto) 0 Urine Casts (Auto) 2 U Epithel Cells (Auto) 0.6 Urine Bacteria (Auto) 16.5 04/29/19 04/29/19 09:57 10:38 WBC RBC Hgb Hct MCV MCH MCHC RDW Plt Count MPV Absolute Neuts (auto) Neutrophils % Lymphocytes % Monocytes % Eosinophils % Basophils % Nucleated RBC % PT with INR INR PTT (Actin FS) Puncture Site ABG pH ABG pCO2 at Pt Temp ABG pO2 at Pt Temp ABG HCO3 ABG O2 Sat (Measured) ABG O2 Content ABG Base Excess Rasheed Test Carboxyhemoglobin Methemoglobin O2 Delivery Device Oxygen Flow Rate Sodium Potassium Chloride Carbon Dioxide Anion Gap BUN Creatinine Est GFR (CKD-EPI)AfAm Est GFR (CKD-EPI)NonAf POC Glucometer [phone] Random Glucose Calcium Total Bilirubin AST ALT Alkaline Phosphatase Creatine Kinase Troponin I Total Protein Albumin Beta-Hydroxybutyrate Serum , Qual Urine Color Urine Appearance Urine pH Ur Specific [place] Urine Protein Urine Glucose (UA) Urine Ketones Urine Blood Urine Nitrite Urine Bilirubin Urine Urobilinogen Ur Leukocyte Esterase Urine WBC (Auto) Urine RBC (Auto) Urine Casts (Auto) U Epithel Cells (Auto) Urine Bacteria (Auto) Active Medications Generic Name Dose Route Start Last Admin Trade Name Freq PRN Reason Stop Dose Admin Chlorhexidine Gluconate 1 applic 04/29/19 22:00 Hibiclens For Decolonization - TP HS KATHRYN Insulin Human Regular 100 100 mls @ 4.08 mls/hr 04/29/19 09:30 04/29/19 09:54 units/ Sodium Chloride IVPB 0.1 units/kg/hr TITR KATHRYN 4.08 mls/hr Administration Protocol 0.1 UNITS/KG/HR Potassium Chloride 20 meq/ 1,010 mls @ 1,000 mls/hr 04/29/19 11:32 Sodium Chloride IVPB 04/29/19 12:32 ASDIR STA Mupirocin 1 applic 04/29/19 22:00 Bactroban Ointment (For Decolonization) - NS 05/04/19 21:59 BID KATHRYN ASSESSMENT/PLAN: 23 y/o female with PMH of diabetes (has had diabetes since she was in late teens ) presents to the ED with complaints of nausea/vomiting fevers over the past 3 days and was found to be in DKA. #Neuro stable; no issues #Cardio slightly tachy likely 2/2 volume depletion -aggressive hydration (NS @125 ) #Endocrine patient currently still in DKA -rate of insulin increased to 6/hr -fluids (NS @150 w/ 20meq Kcl) -BGMS q1H -BMP q4H -will switch to subq insulin once gap is closed and patient is tolerating PO; will add d5 to fluids at that time -endo consult -f/u hba1c #GI patient no longer having any episodes of nausea/vomiting -will advance diet once gap is closed and patient can tolerate PO F/E/N NS@150mls w/ 20meqKcl monitor electrolytes NPO until gap closes and patient tolerates PO dvt ppx: scds Dispo: We will continue to follow the patient. Thank you for this consultative opportunity. ATTENDING PHYSICIAN STATEMENT I saw and evaluated the patient. I reviewed the resident's note and discussed the case with the resident. I agree with the resident's findings and plan as documented. SUBJECTIVE: OBJECTIVE: ASSESSMENT AND PLAN:
[2019-04-29 12:10] LABS: BLOOD UREA NITROGEN 14.1 mg/dL (7-18); CALCIUM 7.2 mg/dL (8.5-10.1); MAGNESIUM 1.8 mg/dL (1.8-2.4); PHOSPHOROUS 2.8 mg/dL (2.5-4.9); POTASSIUM 5.1 mmol/L (3.5-5.1)
[2019-04-29] MEDS ORDERED: SODIUM CHLORIDE 0.45% 1,000 ML IV SCH (12:30)
--- NOTE | 2019-04-29 12:30 | PN ---
Teaching Attending Note Name of Resident: Caprice Colbert ATTENDING PHYSICIAN STATEMENT I saw and evaluated the patient. I reviewed the resident's note and discussed the case with the resident. I agree with the resident's findings and plan as documented. SUBJECTIVE: Patient seen and examined in the ICU. AGE symptoms since Sunday. No travel or sick contacts. No CP or SOB. Admitted via the ER due to DKA. Currently on IV Insulin drip. Intake & Output 04/26/19 04/27/19 04/28/19 04/29/19 23:59 23:59 23:59 23:59 Intake Total 1999 Balance 1999 Weight 90 lb Last Vital Signs Temp Pulse Resp BP Pulse Ox 98.9 F 122 H 17 117/79 99 04/29/19 06:15 04/29/19 11:43 04/29/19 11:43 04/29/19 11:43 04/29/19 11:43 Active Medications Chlorhexidine Gluconate (Hibiclens For Decolonization -) 1 applic TP HS KATHRYN Insulin Human Regular 100 (units/ Sodium Chloride) 100 mls @ 4.08 mls/hr IVPB TITR KATHRYN; Protocol Last Titration: 04/29/19 12:12 Dose: 0.12 units/kg/hr, 5 mls/hr Sodium Chloride (1/2 Normal Saline) 1,000 mls @ 125 mls/hr IV ASDIR KATHRYN Mupirocin (Bactroban Ointment (For Decolonization) -) 1 applic NS BID KATHRYN Stop: 05/04/19 21:59 GENERAL: Awake, alert, and fully oriented, in no acute distress. EYES:PEERLA; EOMI; no scleral icterus EARS, NOSE, THROAT:dry mucous membranes NECK: no JVD; no lymphasenopathy LUNGS: CTA B/L; no rales, rhonchi or wheezing HEART: tachycardic, regular rhythm,, normal S1 and S2 without murmur, rub or gallop. ABDOMEN: Soft, NT/ND +BS in all 4 quadrants MUSCULOSKELETAL: Normal range of motion at all joints. No bony deformities or tenderness. No CVA tenderness. EXTREMITIES: warm; well-perfused no clubbing/cyanosis or edema NEUROLOGICAL: Non-focal PSYCHIATRIC: Cooperative. Good eye contact. Appropriate mood and affect. SKIN: Warm, dry, normal turgor, no rashes or lesions noted. Laboratory Results - last 24 hr 04/29/19 04/29/19 04/29/19 06:28 06:50 06:50 WBC RBC Hgb Hct MCV MCH MCHC RDW Plt Count MPV Absolute Neuts (auto) Neutrophils % Lymphocytes % Monocytes % Eosinophils % Basophils % Nucleated RBC % PT with INR INR PTT (Actin FS) Puncture Site ABG pH ABG pCO2 at Pt Temp ABG pO2 at Pt Temp ABG HCO3 ABG O2 Sat (Measured) ABG O2 Content ABG Base Excess Rasheed Test Carboxyhemoglobin Methemoglobin O2 Delivery Device Oxygen Flow Rate Sodium Cancelled Potassium Cancelled Chloride Cancelled Carbon Dioxide Cancelled Anion Gap Cancelled BUN Cancelled Creatinine Cancelled Est GFR (CKD-EPI)AfAm Cancelled Est GFR (CKD-EPI)NonAf Cancelled POC Glucometer 509 Random Glucose Cancelled Calcium Cancelled Total Bilirubin Cancelled AST Cancelled ALT Cancelled Alkaline Phosphatase Cancelled Creatine Kinase Cancelled Troponin I Cancelled Cancelled Total Protein Cancelled Albumin Cancelled Beta-Hydroxybutyrate Cancelled Serum , Qual Urine Color Urine Appearance Urine pH Ur Specific [place] Urine Protein Urine Glucose (UA) Urine Ketones Urine Blood Urine Nitrite Urine Bilirubin Urine Urobilinogen Ur Leukocyte Esterase Urine WBC (Auto) Urine RBC (Auto) Urine Casts (Auto) U Epithel Cells (Auto) Urine Bacteria (Auto) 04/29/19 04/29/19 04/29/19 06:50 06:50 07:02 WBC 8.7 RBC 5.64 H Hgb 17.5 H Hct 52.3 H D MCV 92.8 MCH 30.9 MCHC 33.3 RDW 13.4 D Plt Count 448 H D MPV 8.8 Absolute Neuts (auto) 7.3 Neutrophils % 83.4 H D Lymphocytes % 13.1 D Monocytes % 3.4 L Eosinophils % 0.0 D Basophils % 0.1 Nucleated RBC % 0 PT with INR 10.90 INR 0.92 PTT (Actin FS) 30.5 Puncture Site Left radial ABG pH 7.13 L* ABG pCO2 at Pt Temp 15.3 L ABG pO2 at Pt Temp 124 H ABG HCO3 4.8 L ABG O2 Sat (Measured) 97.2 ABG O2 Content 21.1 ABG Base Excess -24.1 L Rasheed Test Positive Carboxyhemoglobin 1.0 Methemoglobin < 1.0 O2 Delivery Device Room air Oxygen Flow Rate 21% Sodium Potassium Chloride Carbon Dioxide Anion Gap BUN Creatinine Est GFR (CKD-EPI)AfAm Est GFR (CKD-EPI)NonAf POC Glucometer Random Glucose Calcium Total Bilirubin AST ALT Alkaline Phosphatase Creatine Kinase Troponin I Total Protein Albumin Beta-Hydroxybutyrate Serum , Qual Urine Color Urine Appearance Urine pH Ur Specific [place] Urine Protein Urine Glucose (UA) Urine Ketones Urine Blood Urine Nitrite Urine Bilirubin Urine Urobilinogen Ur Leukocyte Esterase Urine WBC (Auto) Urine RBC (Auto) Urine Casts (Auto) U Epithel Cells (Auto) Urine Bacteria (Auto) 04/29/19 04/29/19 04/29/19 07:02 07:50 07:50 WBC RBC Hgb Hct MCV MCH MCHC RDW Plt Count MPV Absolute Neuts (auto) Neutrophils % Lymphocytes % Monocytes % Eosinophils % Basophils % Nucleated RBC % PT with INR INR PTT (Actin FS) Puncture Site ABG pH ABG pCO2 at Pt Temp ABG pO2 at Pt Temp ABG HCO3 ABG O2 Sat (Measured) ABG O2 Content ABG Base Excess Rasheed Test Carboxyhemoglobin Cancelled Methemoglobin Cancelled O2 Delivery Device Oxygen Flow Rate Sodium 135 L Potassium 4.8 Chloride 102 Carbon Dioxide 7 L Anion Gap 26 H BUN 19.4 H Creatinine 1.1 Est GFR (CKD-EPI)AfAm 80.81 Est GFR (CKD-EPI)NonAf 69.72 POC Glucometer Random Glucose 528 H* Calcium 7.9 L Total Bilirubin 0.4 AST 13 L ALT 22 Alkaline Phosphatase 70 Creatine Kinase 39 Cancelled Troponin I < 0.02 Cancelled Total Protein 6.9 Albumin 3.8 Beta-Hydroxybutyrate 118.7 H Serum , Qual Urine Color Urine Appearance Urine pH Ur Specific [place] Urine Protein Urine Glucose (UA) Urine Ketones Urine Blood Urine Nitrite Urine Bilirubin Urine Urobilinogen Ur Leukocyte Esterase Urine WBC (Auto) Urine RBC (Auto) Urine Casts (Auto) U Epithel Cells (Auto) Urine Bacteria (Auto) 04/29/19 04/29/19 04/29/19 07:50 07:50 08:15 WBC RBC Hgb Hct MCV MCH MCHC RDW Plt Count MPV Absolute Neuts (auto) Neutrophils % Lymphocytes % Monocytes % Eosinophils % Basophils % Nucleated RBC % PT with INR INR PTT (Actin FS) Puncture Site ABG pH ABG pCO2 at Pt Temp ABG pO2 at Pt Temp ABG HCO3 ABG O2 Sat (Measured) ABG O2 Content ABG Base Excess Rasheed Test Carboxyhemoglobin Methemoglobin O2 Delivery Device Oxygen Flow Rate Sodium Cancelled Potassium Cancelled Chloride Cancelled Carbon Dioxide Cancelled Anion Gap Cancelled BUN Cancelled Creatinine Cancelled Est GFR (CKD-EPI)AfAm Cancelled Est GFR (CKD-EPI)NonAf Cancelled POC Glucometer Random Glucose Cancelled Calcium Cancelled Total Bilirubin Cancelled AST Cancelled ALT Cancelled Alkaline Phosphatase Cancelled Creatine Kinase Troponin I Total Protein Cancelled Albumin Cancelled Beta-Hydroxybutyrate Serum , Qual Negative Urine Color Yellow Urine Appearance Clear Urine pH 5.0 Ur Specific [place] 1.023 Urine Protein 1+ H Urine Glucose (UA) 3+ H Urine Ketones 3+ H Urine Blood Negative Urine Nitrite Negative Urine Bilirubin Negative Urine Urobilinogen 0.2 Ur Leukocyte Esterase Negative Urine WBC (Auto) 0 Urine RBC (Auto) 0 Urine Casts (Auto) 2 U Epithel Cells (Auto) 0.6 Urine Bacteria (Auto) 16.5 04/29/19 04/29/19 09:57 10:38 WBC RBC Hgb Hct MCV MCH MCHC RDW Plt Count MPV Absolute Neuts (auto) Neutrophils % Lymphocytes % Monocytes % Eosinophils % Basophils % Nucleated RBC % PT with INR INR PTT (Actin FS) Puncture Site ABG pH ABG pCO2 at Pt Temp ABG pO2 at Pt Temp ABG HCO3 ABG O2 Sat (Measured) ABG O2 Content ABG Base Excess Rasheed Test Carboxyhemoglobin Methemoglobin O2 Delivery Device Oxygen Flow Rate Sodium Potassium Chloride Carbon Dioxide Anion Gap BUN Creatinine Est GFR (CKD-EPI)AfAm Est GFR (CKD-EPI)NonAf POC Glucometer 376 519 Random Glucose Calcium Total Bilirubin AST ALT Alkaline Phosphatase Creatine Kinase Troponin I Total Protein Albumin Beta-Hydroxybutyrate Serum , Qual Urine Color Urine Appearance Urine pH Ur Specific [place] Urine Protein Urine Glucose (UA) Urine Ketones Urine Blood Urine Nitrite Urine Bilirubin Urine Urobilinogen Ur Leukocyte Esterase Urine WBC (Auto) Urine RBC (Auto) Urine Casts (Auto) U Epithel Cells (Auto) Urine Bacteria (Auto) ASSESSMENT/PLAN: DKA R/O Viral AGE IV Insulin drip per protocol IVF resuscitation Follow I & O VTE prophylaxis PO as tolerated Requires ICU monitoring for IV Insulin drip and frequent BGMs Dr Rangel Critical care time spent in reviewing chart, evaluating patient and formulating plan - 36 minutes.
[2019-04-29] MEDS ORDERED: SODIUM CHLORIDE 1,000 ML IV SCH (12:45)
[2019-04-29] MEDS ORDERED: SODIUM CHLORIDE 0.9%/KCL 20 MEQ/1,000 ML INFUS.BAG IV SCH (13:14)
--- NOTE | 2019-04-29 13:28 | HP ---
<Mirna Guerra - Last Filed: 04/29/19 13:41> Hospitalist Medicine Admission 23 y/o F with PMH IDDM, who presents to ED w/ three day hx of intractable nausea , vomiting, and difficulty controlling BG. BG has been ranging between 150-400, with spikes and has been a/w abdominal discomfort and cramping. Pt was admitted two months ago for mgmt of DKA d/t difficulty using new insulin injection pen. At home, pt on levemir 30u sq BID, as well as ISS. Questionable f/u with endocrine as outpt. In ED, pt was given IV 1L NS boluses x 3, KCl, and started on insulin gtt. Pt brought to ICU for cont'd mgmt; on admission: pH 7.13, co2 7 , AG 26, b hydroxy+, BG 528. On admission, pt hemodynamically stable, however tachycardic. H/H hemoconcentrated, have started vigorous IVF (IV NS 150 cc/hr + 20Kcl). PMH : as above psxh: meds: as in chart; levemir 30u sq BID, ISS allergies: NKDA FH: denies SH: denies cigarette, alcohol or drug use Allergies No Known Allergies Allergy (Verified 04/29/19 06:41) HOME MEDICATIONS: Home Medications Medication Instructions Recorded Insulin (Levemir) [Levemir Vial] 30 units SQ BID@0700,2200 #100 02/19/19 units Insulin Sliding Scale [Novolog 1 vial SQ TIDAC #100 units 02/19/19 Vial Sliding Scale -] PHYSICAL EXAMINATION Vital Signs - 24 hr 04/29/19 12:32 Temperature Pulse Rate 117 H Pulse Rate [ Apical] Respiratory 20 Rate Blood Pressure 106/68 Blood Pressure [Right Arm] O2 Sat by Pulse Oximetry (%) General: lethargic, resting in bed. in NAD HEENT: NCAT, PERRLA. neck: supple cardio: +tach rate. no r/m/g pulm: CTA B/l. no accessory m usage abdomen: soft, +diffusely ttp in epigastrium. no guarding or rigidity LE: 2+ pulses, no edema Laboratory Tests 04/29/19 04/29/19 04/29/19 06:50 07:02 07:50 WBC 8.7 Hgb 17.5 H Hct 52.3 H D Plt Count 448 H D ABG pH 7.13 L* ABG pCO2 at Pt Temp 15.3 L ABG pO2 at Pt Temp 124 H ABG HCO3 4.8 L ABG O2 Sat (Measured) 97.2 ABG O2 Content 21.1 ABG Base Excess -24.1 L Sodium 135 L Potassium 4.8 Carbon Dioxide 7 L BUN 19.4 H Random Glucose 528 H* Beta-Hydroxybutyrate 118.7 H Ur Specific [place] Urine Protein Urine Glucose (UA) Urine Ketones Urine Blood Urine Nitrite Urine Bilirubin 04/29/19 08:15 WBC ABG pO2 at Pt Temp ABG Base Excess Sodium Potassium Carbon Dioxide BUN Random Glucose Beta-Hydroxybutyrate Ur Specific [place] 1.023 Urine Protein 1+ H Urine Glucose (UA) 3+ H Urine Ketones 3+ H Urine Blood Negative Urine Nitrite Negative Urine Bilirubin Negative Imaging 04/29/19: CXR: clear; without acute abnormality 04/29/19: +sinus tach, rate ~130bpm, qtc 471ms st depressions anterior and inferior leads, however poor quality d/t tach ASSESSMENT/PLAN: 23 y/o F with PMH IDDM, who presents to ED w/ three day hx of intractable nausea , vomiting, and difficulty controlling BG. BG has been ranging between 150-400, with spikes and has been a/w abdominal discomfort and cramping. Admitted to ICU for mgmt DKA. #DKA 2/2 med noncompliance -without current source of infection, alternate etiology to explain etiology -pH 7.13, co2 7, AG 26, b hydroxy+, BG 528. -c/w insulin gtt 0.1 u/kg/hr; double rate if blood glucose does not fall by 50- 70 mg/dL -vigorous IVF; IV NS 150 cc/hr + 20Kcl, as last K 5.1 -when BG reaches 250, change to d51/2NS 100-200 ml/hr , slow infusion -once tolerating PO, BG<250, gap closed, bridge gtt and SQ -BGM q1h, BMP q3-4hr -give K if between 3.3-5.3 -f/u a1c -endocrine consult: Dr. Cisneros #F/E/N IV NS 150 cc/hr + 20 Kcl continue to follow lytes, replete as necessary NPO #PPX DVT: SCD's #Dispo admitted to ICU <Jluis Bloom - Last Filed: 04/29/19 17:02> Seen and examined; please see resident note for further historical information. I personally verified all rodriguez historical information and exam findings. Personally interpreted all imaging and diagnostics and reviewed appropriate consults. I reviewed all labs and vital signs as per resident note and EMR as documented. I agree with the above assessment and plan unless supplemented by myself in the following. I agree with the history provided in the resident history of present illness aside from the fact that the patient informs me that they have intentionally not taken their insulin secondary to not feeling good. They sometimes feel as if the insulin makes him feel worse, despite the fact that this regularly places him into diabetic ketoacidosis. This was explained to the patient at length, and she declined any further counseling stated that she knew when she understood her body. Home Medications Medication Instructions Recorded Insulin (Levemir) [Levemir Vial] 15 units SQ BID@0700,2200 #100 02/19/19 units Insulin Sliding Scale [Novolog 1 vial SQ TIDAC #100 units 02/19/19 Vial Sliding Scale -] REVIEW OF SYSTEMS 10 sys ROS done and negative aside from HPI PHYSICAL EXAMINATION Vital Signs - 24 hr 04/29/19 04/29/19 04/29/19 06:15 10:20 11:43 Temperature 98.9 F Pulse Rate 121 H 127 H Pulse Rate [ 122 H Apical] Respiratory 19 17 Rate Blood Pressure 114/79 Blood Pressure 117/79 [Right Arm] O2 Sat by Pulse 99 98 99 Oximetry (%) 04/29/19 04/29/19 12:32 14:00 Temperature 97.7 F Pulse Rate 117 H 120 H Pulse Rate [ Apical] Respiratory 20 20 Rate Blood Pressure 106/68 94/55 L Blood Pressure [Right Arm] O2 Sat by Pulse Oximetry (%) VS, labs, imaging reviewed NAD, AAO, resting comfortably in bed. RRR s1/2 no mgr Normal muscle tone, moves all 5 extremities with normal apparent strength Neck is supple, trachea midline, no judy LN Lungs CTAB with sym expansion NT ND +BS no judy organomegaly CN2-12 wnl; no FND NC AT EOMI PERRLA Normal mood, appropriate behavior, euthymic affect No skin breakdown or rashes noted Laboratory Results - last 24 hr 04/29/19 04/29/19 04/29/19 06:28 06:50 06:50 WBC RBC Hgb Hct MCV MCH MCHC RDW Plt Count MPV Absolute Neuts (auto) Neutrophils % Lymphocytes % Monocytes % Eosinophils % Basophils % Nucleated RBC % PT with INR INR PTT (Actin FS) Puncture Site ABG pH ABG pCO2 at Pt Temp ABG pO2 at Pt Temp ABG HCO3 ABG O2 Sat (Measured) ABG O2 Content ABG Base Excess Rasheed Test Carboxyhemoglobin Methemoglobin O2 Delivery Device Oxygen Flow Rate Sodium Cancelled Potassium Cancelled Chloride Cancelled Carbon Dioxide Cancelled Anion Gap Cancelled BUN Cancelled Creatinine Cancelled Est GFR (CKD-EPI)AfAm Cancelled Est GFR (CKD-EPI)NonAf Cancelled POC Glucometer 509 Random Glucose Cancelled Calcium Cancelled Phosphorus Magnesium Total Bilirubin Cancelled AST Cancelled ALT Cancelled Alkaline Phosphatase Cancelled Creatine Kinase Cancelled Troponin I Cancelled Cancelled Total Protein Cancelled Albumin Cancelled Beta-Hydroxybutyrate Cancelled Serum , Qual Urine Color Urine Appearance Urine pH Ur Specific [place] Urine Protein Urine Glucose (UA) Urine Ketones Urine Blood Urine Nitrite Urine Bilirubin Urine Urobilinogen Ur Leukocyte Esterase Urine WBC (Auto) Urine RBC (Auto) Urine Casts (Auto) U Epithel Cells (Auto) Urine Bacteria (Auto) 04/29/19 04/29/19 04/29/19 06:50 06:50 07:02 WBC 8.7 RBC 5.64 H Hgb 17.5 H Hct 52.3 H D MCV 92.8 MCH 30.9 MCHC 33.3 RDW 13.4 D Plt Count 448 H D MPV 8.8 Absolute Neuts (auto) 7.3 Neutrophils % 83.4 H D Lymphocytes % 13.1 D Monocytes % 3.4 L Eosinophils % 0.0 D Basophils % 0.1 Nucleated RBC % 0 PT with INR 10.90 INR 0.92 PTT (Actin FS) 30.5 Puncture Site Left radial ABG pH 7.13 L* ABG pCO2 at Pt Temp 15.3 L ABG pO2 at Pt Temp 124 H ABG HCO3 4.8 L ABG O2 Sat (Measured) 97.2 ABG O2 Content 21.1 ABG Base Excess -24.1 L Rasheed Test Positive Carboxyhemoglobin 1.0 Methemoglobin < 1.0 O2 Delivery Device Room air Oxygen Flow Rate 21% Sodium Potassium Chloride Carbon Dioxide Anion Gap BUN Creatinine Est GFR (CKD-EPI)AfAm Est GFR (CKD-EPI)NonAf POC Glucometer Random Glucose Calcium Phosphorus Magnesium Total Bilirubin AST ALT Alkaline Phosphatase Creatine Kinase Troponin I Total Protein Albumin Beta-Hydroxybutyrate Serum , Qual Urine Color Urine Appearance Urine pH Ur Specific [place] Urine Protein Urine Glucose (UA) Urine Ketones Urine Blood Urine Nitrite Urine Bilirubin Urine Urobilinogen Ur Leukocyte Esterase Urine WBC (Auto) Urine RBC (Auto) Urine Casts (Auto) U Epithel Cells (Auto) Urine Bacteria (Auto) 04/29/19 04/29/19 04/29/19 07:02 07:50 07:50 WBC RBC Hgb Hct MCV MCH MCHC RDW Plt Count MPV Absolute Neuts (auto) Neutrophils % Lymphocytes % Monocytes % Eosinophils % Basophils % Nucleated RBC % PT with INR INR PTT (Actin FS) Puncture Site ABG pH ABG pCO2 at Pt Temp ABG pO2 at Pt Temp ABG HCO3 ABG O2 Sat (Measured) ABG O2 Content ABG Base Excess Rasheed Test Carboxyhemoglobin Cancelled Methemoglobin Cancelled O2 Delivery Device Oxygen Flow Rate Sodium 135 L Potassium 4.8 Chloride 102 Carbon Dioxide 7 L Anion Gap 26 H BUN 19.4 H Creatinine 1.1 Est GFR (CKD-EPI)AfAm 80.81 Est GFR (CKD-EPI)NonAf 69.72 POC Glucometer Random Glucose 528 H* Calcium 7.9 L Phosphorus Magnesium Total Bilirubin 0.4 AST 13 L ALT 22 Alkaline Phosphatase 70 Creatine Kinase 39 Cancelled Troponin I < 0.02 Cancelled Total Protein 6.9 Albumin 3.8 Beta-Hydroxybutyrate 118.7 H Serum , Qual Urine Color Urine Appearance Urine pH Ur Specific [place] Urine Protein Urine Glucose (UA) Urine Ketones Urine Blood Urine Nitrite Urine Bilirubin Urine Urobilinogen Ur Leukocyte Esterase Urine WBC (Auto) Urine RBC (Auto) Urine Casts (Auto) U Epithel Cells (Auto) Urine Bacteria (Auto) 04/29/19 04/29/19 04/29/19 07:50 07:50 08:15 WBC RBC Hgb Hct MCV MCH MCHC RDW Plt Count MPV Absolute Neuts (auto) Neutrophils % Lymphocytes % Monocytes % Eosinophils % Basophils % Nucleated RBC % PT with INR INR PTT (Actin FS) Puncture Site ABG pH ABG pCO2 at Pt Temp ABG pO2 at Pt Temp ABG HCO3 ABG O2 Sat (Measured) ABG O2 Content ABG Base Excess Rasheed Test Carboxyhemoglobin Methemoglobin O2 Delivery Device Oxygen Flow Rate Sodium Cancelled Potassium Cancelled Chloride Cancelled Carbon Dioxide Cancelled Anion Gap Cancelled BUN Cancelled Creatinine Cancelled Est GFR (CKD-EPI)AfAm Cancelled Est GFR (CKD-EPI)NonAf Cancelled POC Glucometer Random Glucose Cancelled Calcium Cancelled Phosphorus Magnesium Total Bilirubin Cancelled AST Cancelled ALT Cancelled Alkaline Phosphatase Cancelled Creatine Kinase Troponin I Total Protein Cancelled Albumin Cancelled Beta-Hydroxybutyrate Serum , Qual Negative Urine Color Yellow Urine Appearance Clear Urine pH 5.0 Ur Specific [place] 1.023 Urine Protein 1+ H Urine Glucose (UA) 3+ H Urine Ketones 3+ H Urine Blood Negative Urine Nitrite Negative Urine Bilirubin Negative Urine Urobilinogen 0.2 Ur Leukocyte Esterase Negative Urine WBC (Auto) 0 Urine RBC (Auto) 0 Urine Casts (Auto) 2 U Epithel Cells (Auto) 0.6 Urine Bacteria (Auto) 16.5 04/29/19 04/29/19 04/29/19 09:57 10:38 11:15 WBC RBC Hgb Hct MCV MCH MCHC RDW Plt Count MPV Absolute Neuts (auto) Neutrophils % Lymphocytes % Monocytes % Eosinophils % Basophils % Nucleated RBC % PT with INR INR PTT (Actin FS) Puncture Site ABG pH ABG pCO2 at Pt Temp ABG pO2 at Pt Temp ABG HCO3 ABG O2 Sat (Measured) ABG O2 Content ABG Base Excess Rasheed Test Carboxyhemoglobin Methemoglobin O2 Delivery Device Oxygen Flow Rate Sodium 138 Potassium 5.1 Chloride 110 H Carbon Dioxide 8 L Anion Gap 20 H BUN 14.1 Creatinine 1.0 Est GFR (CKD-EPI)AfAm 90.68 Est GFR (CKD-EPI)NonAf 78.24 POC Glucometer 376 519 Random Glucose 497 H* Calcium 7.2 L Phosphorus 2.8 Magnesium 1.8 Total Bilirubin AST ALT Alkaline Phosphatase Creatine Kinase Troponin I Total Protein Albumin Beta-Hydroxybutyrate Serum , Qual Urine Color Urine Appearance Urine pH Ur Specific [place] Urine Protein Urine Glucose (UA) Urine Ketones Urine Blood Urine Nitrite Urine Bilirubin Urine Urobilinogen Ur Leukocyte Esterase Urine WBC (Auto) Urine RBC (Auto) Urine Casts (Auto) U Epithel Cells (Auto) Urine Bacteria (Auto) 04/29/19 04/29/19 04/29/19 12:10 14:04 15:22 WBC RBC Hgb Hct MCV MCH MCHC RDW Plt Count MPV Absolute Neuts (auto) Neutrophils % Lymphocytes % Monocytes % Eosinophils % Basophils % Nucleated RBC % PT with INR INR PTT (Actin FS) Puncture Site ABG pH ABG pCO2 at Pt Temp ABG pO2 at Pt Temp ABG HCO3 ABG O2 Sat (Measured) ABG O2 Content ABG Base Excess Rasheed Test Carboxyhemoglobin Methemoglobin O2 Delivery Device Oxygen Flow Rate Sodium Potassium Chloride Carbon Dioxide Anion Gap BUN Creatinine Est GFR (CKD-EPI)AfAm Est GFR (CKD-EPI)NonAf POC Glucometer 339 139 126 Random Glucose Calcium Phosphorus Magnesium Total Bilirubin AST ALT Alkaline Phosphatase Creatine Kinase Troponin I Total Protein Albumin Beta-Hydroxybutyrate Serum , Qual Urine Color Urine Appearance Urine pH Ur Specific [place] Urine Protein Urine Glucose (UA) Urine Ketones Urine Blood Urine Nitrite Urine Bilirubin Urine Urobilinogen Ur Leukocyte Esterase Urine WBC (Auto) Urine RBC (Auto) Urine Casts (Auto) U Epithel Cells (Auto) Urine Bacteria (Auto) ASSESSMENT/PLAN: The patient is a 23-year-old female with a history of noncompliance that leads to repeated episodes of diabetic ketoacidosis. She is seen to have hemoconcentration on her labs today that secondary to the profound dehydration that is associated with this condition; associated with this the patient is found to have tachycardia that is somewhat fluid responsive. She states that she feels better and she no longer has any abdominal pain or nausea. ABG is reviewed and is found to have a metabolic acidosis with positive anion gap on BMP with normal albumin. The patient will be monitored in the ICU and care will be deferred to the critical care service until the anion gap is closed and the drip is turned off. The patient will be transferred to the floor subsequently, she will need to have some amount of counseling. Endocrinology has been consulted and I agree with the changes that they recommend with the insulin drip. The rate is currently been doubled and she remains on the indicated fluids. She is stable and we will continue to monitor BMP and fingersticks. DVT prophylaxis SCDs, no GI prophylaxis indicated Full code Visit type - Emergency Visit Emergency Visit: Yes ED Registration Date: 04/29/19 Care time: The patient presented to the Emergency Department on the above date and was hospitalized for further evaluation of their emergent condition. - New Patient This patient is new to me today: Yes Date on this admission: 04/29/19 - Critical Care Critical Care patient: No ATTENDING PHYSICIAN STATEMENT I saw and evaluated the patient. I reviewed the resident's note and discussed the case with the resident. I agree with the resident's findings and plan as documented. SUBJECTIVE: OBJECTIVE: ASSESSMENT AND PLAN:
[2019-04-29] MEDS ORDERED: DEXTROSE 5%-0.45% SALINE 1,000 ML IV SCH ×2 (14:15→14:21)
--- NOTE | 2019-04-29 15:42 | CONSULT ---
Consult Consult Specialty:: Endocrinology Referred by:: Clare Colbert Reason for Consultation:: DKA - History of Present Illness Chief Complaint: Nausea, vomiting History of Present Illness: This is a 23 y/o F with h/o T1DM, who presented to ED with c/o three days of intractable nausea, vomiting, and difficulty controlling BG. BG has been ranging between 150-400, with spikes. Also c/o abdominal discomfort and cramping. Pt was admitted two months ago for mgmt of DKA when she had difficulty using the V Go system. Pt currently uses Insulin pen. levemir 30u sq BID, as well as ISS. Is being managed by per primary and is not seeing any Endo. . In ED, pt was given IV 1L NS boluses x 3, KCl, and started on insulin drip. Pt brought to ICU for cont'd mgmt; on admission: pH 7.13, co2 7, AG 26, b hydroxy+, BG 528. - History Source History Provided By: Patient, Medical Record - Past Medical History Endocrine: Yes: Diabetes Mellitus - Alcohol/Substance Use Hx Alcohol Use: No - Smoking History Smoking history: Never smoked Have you smoked in the past 12 months: No Aproximately how many cigarettes per day: 5 Home Medications - Allergies Allergies/Adverse Reactions: Allergies Allergy/AdvReac Type Severity Reaction Status Date / Time No Known Allergies Allergy Verified 04/29/19 06:41 - Home Medications Home Medications: Ambulatory Orders RX: Insulin Sliding Scale [Novolog Vial Sliding Scale -] 1 vial SQ TIDAC #100 units 02/19/19 RX: Insulin (Levemir) [Levemir Vial] 30 units SQ BID@0700,2200 04/29/19 Review of Systems - Review of Systems Constitutional: reports: Malaise Eyes: reports: No Symptoms HENT: reports: No Symptoms Neck: reports: No Symptoms Cardiovascular: reports: No Symptoms Respiratory: reports: No Symptoms Gastrointestinal: reports: No Symptoms Genitourinary: reports: No Symptoms Musculoskeletal: reports: No Symptoms Neurological: reports: No Symptoms Endocrine: reports: No Symptoms Physical Exam Vital Signs: Vital Signs Temperature 97.7 F 04/29/19 14:00 Pulse Rate 120 H 04/29/19 14:00 Respiratory Rate 20 04/29/19 14:00 Blood Pressure 94/55 L 04/29/19 14:00 O2 Sat by Pulse Oximetry (%) 99 04/29/19 11:43 Constitutional: Yes: No Distress, Calm Eyes: Yes: Conjunctiva Clear, EOM Intact HENT: Yes: Atraumatic, Normocephalic Neck: Yes: Supple, Trachea Midline Cardiovascular: Yes: Regular Rate and Rhythm Respiratory: Yes: Regular, CTA Bilaterally Gastrointestinal: Yes: Normal Bowel Sounds, Soft Musculoskeletal: Yes: WNL Extremities: Yes: WNL Edema: No Neurological: Yes: Alert, Oriented Labs: CBC, BMP 04/29/19 06:50 Problem List - Problems (1) DKA (diabetic ketoacidoses) Code(s): E13.10 - OTH DIABETES MELLITUS WITH KETOACIDOSIS WITHOUT COMA Qualifiers: Diabetes mellitus type: type 1 Diabetes mellitus complication detail: without coma Qualified Code(s): E10.10 - Type 1 diabetes mellitus with ketoacidosis without coma (2) Diabetes mellitus Code(s): E11.9 - TYPE 2 DIABETES MELLITUS WITHOUT COMPLICATIONS Assessment/Plan AP: DKA T1DM Restart Insulin drip at 3 units per hr Increase D5 1/2NS to 150 cc per hr BGM Q 1hr Increase IVF rate of BGM drops to <120 to maintian blood sugar between 120 to 200. Continue Insulin drip until A gap closes and CO2 is at least 18 IVF may be changed to D10 1/2 NS if IVF requirement to maintiain blood sugar is >250ml/hr Add KCL if K+ drops to <4.5 Once Agap closes and C)2 is at least 18, Start Levermir 20 units and stop drip one hour later. Continue D51/2 NS until pt is able to tolerate enough food to maintain blood sugar >120.
[2019-04-29 16:09] LABS: BLOOD UREA NITROGEN 9.6 mg/dL (7-18); CALCIUM 7.8 mg/dL (8.5-10.1); CREATININE 0.7 mg/dL (0.55-1.3); POTASSIUM 3.8 mmol/L (3.5-5.1)
[2019-04-29] MEDS ORDERED: INSULIN (NOVOLOG) ASPART 100 UNITS/ML 10ML VIAL SQ ONE (16:25)
[2019-04-29] MEDS: D5-1/2NS+30 MEQ KCL - 30 MEQ/1,000 ML INFUS.BAG IV SCH (17:00)
[2019-04-29 20:59] LABS: CALCIUM 7.8 mg/dL (8.5-10.1); CREATININE 0.8 mg/dL (0.55-1.3); POTASSIUM 3.8 mmol/L (3.5-5.1)
[2019-04-29] MEDS ORDERED: INSULIN REGULAR HUMAN 100 UNITS/ML *VIAL SQ ONE (21:02)
[2019-04-29] MEDS ORDERED: INSULIN (LEVEMIR) 100 UNITS/ML UNITS SQ ONE (21:06)
[2019-04-29] MEDS: CHLORHEXIDINE GLUCONATE 4% CLEANSER FOR DECOLONIZATION TP SCH (21:37)
[2019-04-29] MEDS: MUPIROCIN 2% TOPICAL OINTMENT FOR DECOLONIZATION NS SCH (21:37)
[2019-04-29 23:56] LABS: BLOOD UREA NITROGEN 7.3 mg/dL (7-18); CALCIUM 8.1 mg/dL (8.5-10.1); CREATININE 0.9 mg/dL (0.55-1.3)
[2019-04-30] MEDS: D5-1/2NS+30 MEQ KCL - 30 MEQ/1,000 ML INFUS.BAG IV SCH (02:21)
[2019-04-30 07:46] LABS: BASO % 0.2 % (0-2.0); EOS % 0.3 % (0-4.5); HEMATOCRIT 35.7 % (32.4-45.2); HEMOGLOBIN 12.4 GM/dL (10.7-15.3); LYMPH % 39.2 % (8-40); MCH 30.2 pg (25.7-33.7); MCHC 34.6 g/dl (32.0-36.0); MEAN CELL VOLUME 87.3 fl (80-96); MEAN PLT VOLUME 8.3 fl (7.5-11.1); MONO % 7.9 % (3.8-10.2); NEUT % 52.4 % (42.8-82.8); PLATELET COUNT 261 K/MM3 (134-434); RBC 4.09 M/mm3 (3.60-5.2)
[2019-04-30 08:11] LABS: ALBUMIN 3.1 g/dl (3.4-5.0); BILIRUBIN,TOTAL 0.4 mg/dL (0.2-1); BLOOD UREA NITROGEN 6.9 mg/dL (7-18); CALCIUM 8.2 mg/dL (8.5-10.1); CREATININE 0.6 mg/dL (0.55-1.3); MAGNESIUM 1.8 mg/dL (1.8-2.4); PHOSPHOROUS 1.5 mg/dL (2.5-4.9); POTASSIUM 3.7 mmol/L (3.5-5.1); TOT PROT 5.4 g/dl (6.4-8.2)
[2019-04-30] MEDS ORDERED: NAPH,MB-DB/K PH,MBDB POWDER PACKET PO ONE ×2 (08:16→09:50)
[2019-04-30] MEDS: MUPIROCIN 2% TOPICAL OINTMENT FOR DECOLONIZATION NS SCH ×2 (09:26→22:18)
--- NOTE | 2019-04-30 10:25 | PN ---
Progress Note (short form) - Note Progress Note: Seen in ICU Feels good Denies any complaints Vital Signs Period Temp Pulse Resp BP Sys/Steele Pulse Ox Last 24 Hr 97.6 F-98.1 F 95-126 15-20 87-117/44-79 99-99 PE: AOx3 Neck: Supple, No JVD HEENT: EOMI Lungs: CTA CVS: s1S2 Abd: Benign Ext: No edema Neuro: No focal deficit CMP Sodium 140 mmol/L (136-145) 04/30/19 06:20 Potassium 3.7 mmol/L (3.5-5.1) 04/30/19 06:20 Chloride 111 mmol/L (98-107) H 04/30/19 06:20 Carbon Dioxide 21 mmol/L (21-32) 04/30/19 06:20 Anion Gap 8 MMOL/L (8-16) 04/30/19 06:20 BUN 6.9 mg/dL (7-18) L 04/30/19 06:20 Creatinine 0.6 mg/dL (0.55-1.3) 04/30/19 06:20 Est GFR (CKD-EPI)AfAm 146.83 04/30/19 06:20 Est GFR (CKD-EPI)NonAf 126.68 04/30/19 06:20 POC Glucometer 130 UNITS (80-120) 04/30/19 06:41 Random Glucose 90 mg/dL (74-106) 04/30/19 06:20 Hemoglobin A1c % 12.4 % (4.2-6.3) H 04/30/19 06:20 Calcium 8.2 mg/dL (8.5-10.1) L 04/30/19 06:20 Phosphorus 1.5 mg/dL (2.5-4.9) L 04/30/19 06:20 Magnesium 1.8 mg/dL (1.8-2.4) 04/30/19 06:20 Total Bilirubin 0.4 mg/dL (0.2-1) 04/30/19 06:20 AST 13 U/L (15-37) L 04/30/19 06:20 ALT 14 U/L (13-61) 04/30/19 06:20 Alkaline Phosphatase 49 U/L (45-117) 04/30/19 06:20 Creatine Kinase 39 U/L (26-192) 04/29/19 07:50 Troponin I < 0.02 ng/ml (0.00-0.05) 04/29/19 07:50 Total Protein 5.4 g/dl (6.4-8.2) L 04/30/19 06:20 Albumin 3.1 g/dl (3.4-5.0) L 04/30/19 06:20 Beta-Hydroxybutyrate 118.7 mg/dL (0.2-2.8) H 04/29/19 07:50 Serum , Qual Negative 04/29/19 07:50 Current Medications Generic Name Dose Route Start Last Admin Trade Name Carrie PRN Reason Stop Dose Admin Chlorhexidine Gluconate 1 applic 04/29/19 22:00 04/29/19 21:37 Hibiclens For Decolonization - TP 1 applic HS KATHRYN Administration Insulin Aspart 1 vial 04/30/19 07:00 Novolog Vial Sliding Scale - SQ ACHS KATHRYN Protocol Insulin Detemir 20 units 04/30/19 22:00 Levemir Vial SQ HS KATHRYN Mupirocin 1 applic 04/29/19 22:00 04/30/19 09:26 Bactroban Ointment (For Decolonization) - NS 05/04/19 21:59 1 applic BID KATHRYN Administration AP: DKA T1DM Off IV Insulin and IVF Tolerating PO feeding Got dose of Levemir 16 units last night, continue same daily at HS for now BGM QACHS Monitor electrolytes Diet exercise discussed Diabetes education done. Discussed need to take Basal Insulin as prescribed to prevent further episodes of DKA. To go to ED if unable to keep food down. Problem List - Problems (1) DKA (diabetic ketoacidoses) Code(s): E13.10 - OTH DIABETES MELLITUS WITH KETOACIDOSIS WITHOUT COMA Qualifiers: Diabetes mellitus type: type 1 Diabetes mellitus complication detail: without coma Qualified Code(s): E10.10 - Type 1 diabetes mellitus with ketoacidosis without coma (2) Diabetes mellitus Code(s): E11.9 - TYPE 2 DIABETES MELLITUS WITHOUT COMPLICATIONS
[2019-04-30] MEDS: INSULIN SLIDING SCALE (NOVOLOG) 1 VIAL SQ SCH ×3 (10:53→22:16)
--- NOTE | 2019-04-30 12:34 | PN ---
Teaching Attending Note Name of Resident: Ayala Baptiste ATTENDING PHYSICIAN STATEMENT I saw and evaluated the patient. I reviewed the resident's note and discussed the case with the resident. I agree with the resident's findings and plan as documented. SUBJECTIVE: Pt seen and examined in the ICU. Feels better. Off insulin gtt. Tolerating PO. Wants to go home. OBJECTIVE: Vital Signs Period Temp Pulse Resp BP Sys/Steele Pulse Ox Last 24 Hr 97.6 F-98.1 F 95-120 15-20 87-112/44-75 99-99 Intake & Output 04/27/19 04/28/19 04/29/19 04/30/19 23:59 23:59 23:59 23:59 Intake Total 3042 1276 Balance 3042 1276 Weight 38.4 kg Gen: NAD at rest Heart: RRR Lung: decreased breath sounds at the bases Abd: soft, nontender Ext: no edema CBC, BMP 04/30/19 06:20 04/30/19 06:20 Active Medications Chlorhexidine Gluconate (Hibiclens For Decolonization -) 1 applic TP HS KATHRYN Last Admin: 04/29/19 21:37 Dose: 1 applic Insulin Aspart (Novolog Vial Sliding Scale -) 1 vial SQ ACHS KATHRYN; Protocol Last Admin: 04/30/19 10:53 Dose: 4 units Insulin Detemir (Levemir Vial) 20 units SQ HS KATHRYN Mupirocin (Bactroban Ointment (For Decolonization) -) 1 applic NS BID KATHRYN Stop: 05/04/19 21:59 Last Admin: 04/30/19 09:26 Dose: 1 applic ASSESSMENT AND PLAN: Diabetic Ketoacidosis resolved Acute Viral Gastroenteritis - glucose control - PO as tolerated - d/c IVF - d/c planning
--- NOTE | 2019-04-30 14:24 | PN ---
Teaching Attending Note Name of Resident: Mirna Guerra ATTENDING PHYSICIAN STATEMENT I saw and evaluated the patient. I reviewed the resident's note and discussed the case with the resident. I agree with the resident's findings and plan as documented. SUBJECTIVE: Patient has no complaints. OBJECTIVE: Vital Signs Period Temp Pulse Resp BP Sys/Steele Pulse Ox Last 24 Hr 97.6 F-98.1 F 95-118 15-20 87-117/44-75 99-99 HEART: S1S2, tachycardic LUNGS: Clear ABDOMEN: Soft, non-tender, non-distended, normal BS EXTREMITIES: No edema Laboratory Results - last 24 hr 04/29/19 04/29/19 04/29/19 15:00 15:22 16:58 WBC RBC Hgb Hct MCV MCH MCHC RDW Plt Count MPV Absolute Neuts (auto) Neutrophils % Lymphocytes % Monocytes % Eosinophils % Basophils % Nucleated RBC % Sodium 141 Potassium 3.8 Chloride 114 H Carbon Dioxide 16 L Anion Gap 11 BUN 9.6 Creatinine 0.7 Est GFR (CKD-EPI)AfAm 139.57 Est GFR (CKD-EPI)NonAf 120.42 POC Glucometer 126 152 Random Glucose 130 H Hemoglobin A1c % Calcium 7.8 L Phosphorus Magnesium Total Bilirubin AST ALT Alkaline Phosphatase Total Protein Albumin 04/29/19 04/29/19 04/29/19 18:23 19:30 21:34 WBC RBC Hgb Hct MCV MCH MCHC RDW Plt Count MPV Absolute Neuts (auto) Neutrophils % Lymphocytes % Monocytes % Eosinophils % Basophils % Nucleated RBC % Sodium 136 Potassium 3.8 Chloride 111 H Carbon Dioxide 16 L Anion Gap 9 BUN 8.0 Creatinine 0.8 Est GFR (CKD-EPI)AfAm 118.76 Est GFR (CKD-EPI)NonAf 102.47 POC Glucometer 192 230 Random Glucose 244 H Hemoglobin A1c % Calcium 7.8 L Phosphorus Magnesium Total Bilirubin AST ALT Alkaline Phosphatase Total Protein Albumin 04/29/19 04/30/19 04/30/19 23:20 02:24 06:06 WBC RBC Hgb Hct MCV MCH MCHC RDW Plt Count MPV Absolute Neuts (auto) Neutrophils % Lymphocytes % Monocytes % Eosinophils % Basophils % Nucleated RBC % Sodium 139 Potassium 4.0 Chloride 110 H Carbon Dioxide 19 L Anion Gap 9 BUN 7.3 Creatinine 0.9 Est GFR (CKD-EPI)AfAm 103.00 Est GFR (CKD-EPI)NonAf 88.87 POC Glucometer 151 73 Random Glucose 297 H Hemoglobin A1c % Calcium 8.1 L Phosphorus Magnesium Total Bilirubin AST ALT Alkaline Phosphatase Total Protein Albumin 04/30/19 04/30/19 04/30/19 06:20 06:20 06:20 WBC 7.0 RBC 4.09 Hgb 12.4 Hct 35.7 D MCV 87.3 MCH 30.2 MCHC 34.6 RDW 13.0 Plt Count 261 D MPV 8.3 Absolute Neuts (auto) 3.7 Neutrophils % 52.4 D Lymphocytes % 39.2 D Monocytes % 7.9 D Eosinophils % 0.3 D Basophils % 0.2 Nucleated RBC % 0 Sodium 140 Potassium 3.7 Chloride 111 H Carbon Dioxide 21 Anion Gap 8 BUN 6.9 L Creatinine 0.6 Est GFR (CKD-EPI)AfAm 146.83 Est GFR (CKD-EPI)NonAf 126.68 POC Glucometer Random Glucose 90 Hemoglobin A1c % 12.4 H Calcium 8.2 L Phosphorus 1.5 L Magnesium 1.8 Total Bilirubin 0.4 AST 13 L ALT 14 Alkaline Phosphatase 49 Total Protein 5.4 L Albumin 3.1 L 04/30/19 04/30/19 06:41 10:50 WBC RBC Hgb Hct MCV MCH MCHC RDW Plt Count MPV Absolute Neuts (auto) Neutrophils % Lymphocytes % Monocytes % Eosinophils % Basophils % Nucleated RBC % Sodium Potassium Chloride Carbon Dioxide Anion Gap BUN Creatinine Est GFR (CKD-EPI)AfAm Est GFR (CKD-EPI)NonAf POC Glucometer 130 202 Random Glucose Hemoglobin A1c % Calcium Phosphorus Magnesium Total Bilirubin AST ALT Alkaline Phosphatase Total Protein Albumin Current Medications Generic Name Dose Route Start Last Admin Trade Name Carrie PRN Reason Stop Dose Admin Chlorhexidine Gluconate 1 applic 04/29/19 22:00 04/29/19 21:37 Hibiclens For Decolonization - TP 1 applic HS KATHRYN Administration Insulin Aspart 1 vial 04/30/19 07:00 04/30/19 10:53 Novolog Vial Sliding Scale - SQ 4 units ACHS KATHRYN Administration Protocol Insulin Detemir 20 units 04/30/19 22:00 Levemir Vial SQ HS KATHRYN Mupirocin 1 applic 04/29/19 22:00 04/30/19 09:26 Bactroban Ointment (For Decolonization) - NS 05/04/19 21:59 1 applic BID KATHRYN Administration ASSESSMENT AND PLAN: This is a 23 year old woman with a history of type 1 DM who presented to the ED with nausea and vomiting. 1. DKA - Resolved 2. Type 1 DM, uncontrolled - HbA1c 12.4 - Levemir dose increased for tonight - Continue Novolog sliding scale
--- NOTE | 2019-04-30 15:31 | PN ---
Progress Note (short form) - Note Progress Note: Hospitalist Medicine In good spirits. BG has been controlled. D/w endocrine ; would like to keep overnight for monitoring. However can transfer to floor Vitals 04/30/19 14:00 Temperature 98.8 F Pulse Rate 100 H Respiratory 19 Rate Blood Pressure 109/67 Physical Exam General: AAOx 3 , in NAD HEENT: NCAT, PERRLA. neck: supple cardio: S1, S2 RRR. no r/m/g pulm: CTA B/l. no accessory m usage abdomen: soft, nontender, nondistended LE: 2+ pulses, no edema Laboratory Tests 04/30/19 04/30/19 04/30/19 06:20 06:20 06:20 WBC 7.0 Hgb 12.4 Hct 35.7 D Plt Count 261 D Sodium 140 Potassium 3.7 Chloride 111 H Carbon Dioxide 21 BUN 6.9 L Creatinine 0.6 Random Glucose 90 Hemoglobin A1c % 12.4 H Calcium 8.2 L Phosphorus 1.5 L AST 13 L ALT 14 Alkaline Phosphatase 49 Total Protein 5.4 L Albumin 3.1 L Microbiology 04/29/19 08:15 Urine - Urine Clean Catch Urine Culture - Final NO GROWTH OBTAINED 04/29/19 06:50 Blood - Peripheral Venous Blood Culture - Preliminary NO GROWTH OBTAINED AFTER 24 HOURS, INCUBATION TO CONTINUE FOR 4 DAYS. 04/29/19 06:50 Blood - Peripheral Venous Blood Culture - Preliminary NO GROWTH OBTAINED AFTER 24 HOURS, INCUBATION TO CONTINUE FOR 4 DAYS. Imaging 04/29/19: CXR: clear; without acute abnormality 04/29/19: +sinus tach, rate ~130bpm, qtc 471ms st depressions anterior and inferior leads, however poor quality d/t tach ASSESSMENT/PLAN: 23 y/o F with PMH IDDM, who presents to ED w/ three day hx of intractable nausea , vomiting, and difficulty controlling BG. BG has been ranging between 150-400, with spikes and has been a/w abdominal discomfort and cramping. Admitted to ICU for mgmt DKA. #DKA 2/2 med noncompliance -DKA has resolved, off insulin gtt, off d5 -started on levemir 16u SQ HS -c/w ISS, BGM ACHS -cont to monitor BG -a1c 12.4% -endocrine consult: Dr. Shreshta #F/E/N off IVF continue to follow lytes, replete as necessary diabetic diet #PPX DVT: SCD's #Dispo in ICU; for transfer to floor overnight monitoring, anticipate d/c in 24hrs per endocrine
--- NOTE | 2019-04-30 15:59 | PN ---
Physical Exam: SUBJECTIVE: Patient seen and examined. Gap has close, tolerating PO diet, D5 1/ 2 NS d/c'd OBJECTIVE: Vital Signs Period Temp Pulse Resp BP Sys/Steele Pulse Ox Last 24 Hr 97.6 F-98.8 F 95-118 15-20 87-117/44-75 99-99 GENERAL: Thin female. The patient is awake, alert, and fully oriented, in no acute distress. LUNGS: CTABL no incr work of breathing HEART: Tachy, S1, S2 without murmurs ABDOMEN: Soft, NTND EXTREMITIES: 2+ pulses, warm, well-perfused, no edema. NEUROLOGICAL: nonfocal exam PSYCH: Normal mood, normal affect. SKIN: Warm, dry, normal turgor, no rashes or lesions noted Laboratory Results - last 24 hr 04/29/19 04/29/19 04/29/19 15:00 15:22 16:58 WBC RBC Hgb Hct MCV MCH MCHC RDW Plt Count MPV Absolute Neuts (auto) Neutrophils % Lymphocytes % Monocytes % Eosinophils % Basophils % Nucleated RBC % Sodium 141 Potassium 3.8 Chloride 114 H Carbon Dioxide 16 L Anion Gap 11 BUN 9.6 Creatinine 0.7 Est GFR (CKD-EPI)AfAm 139.57 Est GFR (CKD-EPI)NonAf 120.42 POC Glucometer 126 152 Random Glucose 130 H Hemoglobin A1c % Calcium 7.8 L Phosphorus Magnesium Total Bilirubin AST ALT Alkaline Phosphatase Total Protein Albumin 04/29/19 04/29/19 04/29/19 18:23 19:30 21:34 WBC RBC Hgb Hct MCV MCH MCHC RDW Plt Count MPV Absolute Neuts (auto) Neutrophils % Lymphocytes % Monocytes % Eosinophils % Basophils % Nucleated RBC % Sodium 136 Potassium 3.8 Chloride 111 H Carbon Dioxide 16 L Anion Gap 9 BUN 8.0 Creatinine 0.8 Est GFR (CKD-EPI)AfAm 118.76 Est GFR (CKD-EPI)NonAf 102.47 POC Glucometer 192 230 Random Glucose 244 H Hemoglobin A1c % Calcium 7.8 L Phosphorus Magnesium Total Bilirubin AST ALT Alkaline Phosphatase Total Protein Albumin 04/29/19 04/30/19 04/30/19 23:20 02:24 06:06 WBC RBC Hgb Hct MCV MCH MCHC RDW Plt Count MPV Absolute Neuts (auto) Neutrophils % Lymphocytes % Monocytes % Eosinophils % Basophils % Nucleated RBC % Sodium 139 Potassium 4.0 Chloride 110 H Carbon Dioxide 19 L Anion Gap 9 BUN 7.3 Creatinine 0.9 Est GFR (CKD-EPI)AfAm 103.00 Est GFR (CKD-EPI)NonAf 88.87 POC Glucometer 151 73 Random Glucose 297 H Hemoglobin A1c % Calcium 8.1 L Phosphorus Magnesium Total Bilirubin AST ALT Alkaline Phosphatase Total Protein Albumin 04/30/19 04/30/19 04/30/19 06:20 06:20 06:20 WBC 7.0 RBC 4.09 Hgb 12.4 Hct 35.7 D MCV 87.3 MCH 30.2 MCHC 34.6 RDW 13.0 Plt Count 261 D MPV 8.3 Absolute Neuts (auto) 3.7 Neutrophils % 52.4 D Lymphocytes % 39.2 D Monocytes % 7.9 D Eosinophils % 0.3 D Basophils % 0.2 Nucleated RBC % 0 Sodium 140 Potassium 3.7 Chloride 111 H Carbon Dioxide 21 Anion Gap 8 BUN 6.9 L Creatinine 0.6 Est GFR (CKD-EPI)AfAm 146.83 Est GFR (CKD-EPI)NonAf 126.68 POC Glucometer Random Glucose 90 Hemoglobin A1c % 12.4 H Calcium 8.2 L Phosphorus 1.5 L Magnesium 1.8 Total Bilirubin 0.4 AST 13 L ALT 14 Alkaline Phosphatase 49 Total Protein 5.4 L Albumin 3.1 L 04/30/19 04/30/19 04/30/19 06:41 10:50 15:13 WBC RBC Hgb Hct MCV MCH MCHC RDW Plt Count MPV Absolute Neuts (auto) Neutrophils % Lymphocytes % Monocytes % Eosinophils % Basophils % Nucleated RBC % Sodium Potassium Chloride Carbon Dioxide Anion Gap BUN Creatinine Est GFR (CKD-EPI)AfAm Est GFR (CKD-EPI)NonAf POC Glucometer 130 202 265 Random Glucose Hemoglobin A1c % Calcium Phosphorus Magnesium Total Bilirubin AST ALT Alkaline Phosphatase Total Protein Albumin Active Medications Generic Name Dose Route Start Last Admin Trade Name Freq PRN Reason Stop Dose Admin Chlorhexidine Gluconate 1 applic 04/29/19 22:00 04/29/19 21:37 Hibiclens For Decolonization - TP 1 applic HS KATHRYN Administration Insulin Aspart 1 vial 04/30/19 07:00 04/30/19 10:53 Novolog Vial Sliding Scale - SQ 4 units ACHS KATHRYN Administration Protocol Insulin Detemir 20 units 04/30/19 22:00 Levemir Vial SQ HS KATHRYN Mupirocin 1 applic 04/29/19 22:00 04/30/19 09:26 Bactroban Ointment (For Decolonization) - NS 05/04/19 21:59 1 applic BID KATHRYN Administration ASSESSMENT/PLAN: 23 y.o. F PMH DM type 1 presenting w/ DKA. #INSTRUCTIONAL COORDINATOR -AOx3 NAD #CV -EKG: sinus tachy qtc 471 #Endo -Anion gap closed; insulin gtt d/c'd -IVF d/c'd -C/w BGMs achs -Levemir 16U at night -ISS -HbA1c 12.4% -Dr. Galeano following -Diabetic education provided -Patient should establish endocrinology f/u care outpatient #FEN -fluids d/c'd -monitor lytes replete prn -Tolerating PO diabetic diet #PPX -SCDs #Dispo -med surg Visit type - Emergency Visit Emergency Visit: Yes ED Registration Date: 04/29/19 Care time: The patient presented to the Emergency Department on the above date and was hospitalized for further evaluation of their emergent condition. - New Patient This patient is new to me today: Yes Date on this admission: 04/30/19 - Critical Care Critical Care patient: Yes Total Critical Care Time (in minutes): 36 Critical Care Statement: The care of this patient involved high complexity decision making to prevent further life threatening deterioration of the patient 's condition and/or to evaluate & treat vital organ system(s) failure or risk of failure. ATTENDING PHYSICIAN STATEMENT I saw and evaluated the patient. I reviewed the resident's note and discussed the case with the resident. I agree with the resident's findings and plan as documented. SUBJECTIVE: OBJECTIVE: ASSESSMENT AND PLAN:
[2019-04-30] MEDS ORDERED: INSULIN (LEVEMIR) 100 UNITS/ML UNITS SQ SCH ×2 (22:00)
[2019-04-30] MEDS: CHLORHEXIDINE GLUCONATE 4% CLEANSER FOR DECOLONIZATION TP SCH (22:18)
[2019-05-01] MEDS ORDERED: DEXTROSE 50%-WATER 25 GM/50 ML DISP.SYRIN ONE (00:32)
[2019-05-01] MEDS ORDERED: DEXTROSE 50%-WATER - 25 GM/50 ML VIAL IVPUSH ONE (00:45)
[2019-05-01] MEDS ORDERED: INSULIN SLIDING SCALE (NOVOLOG) 1 VIAL SQ SCH ×2 (07:00→22:00)
[2019-05-01] MEDS ORDERED: INSULIN (LEVEMIR) 100 UNITS/ML UNITS SQ SCH (07:47)
[2019-05-01 08:43] LABS: BLOOD UREA NITROGEN 5.4 mg/dL (7-18); CALCIUM 8.4 mg/dL (8.5-10.1); CREATININE 0.5 mg/dL (0.55-1.3); MAGNESIUM 1.8 mg/dL (1.8-2.4); PHOSPHOROUS 3.2 mg/dL (2.5-4.9); POTASSIUM 3.8 mmol/L (3.5-5.1)
--- NOTE | 2019-05-01 09:09 | PN ---
Teaching Attending Note Name of Resident: Mirna Guerra ATTENDING PHYSICIAN STATEMENT I saw and evaluated the patient. I reviewed the resident's note and discussed the case with the resident. I agree with the resident's findings and plan as documented. SUBJECTIVE: Currently has no complaints. Was hypoglycemic with BG 55 this morning. OBJECTIVE: Vital Signs Period Temp Pulse Resp BP Sys/Steele Pulse Ox Last 24 Hr 98 F-98.8 F 94-118 17-20 102-117/67-80 99 HEART: S1S2, RRR LUNGS: Clear ABDOMEN: Soft, non-tender, non-distended, normal BS EXTREMITIES: No edema Laboratory Results - last 24 hr 04/30/19 04/30/19 04/30/19 10:50 15:13 22:13 Sodium Potassium Chloride Carbon Dioxide Anion Gap BUN Creatinine Est GFR (CKD-EPI)AfAm Est GFR (CKD-EPI)NonAf POC Glucometer 202 265 262 Random Glucose Calcium Phosphorus Magnesium 05/01/19 05/01/19 05/01/19 00:21 02:30 05:37 Sodium Potassium Chloride Carbon Dioxide Anion Gap BUN Creatinine Est GFR (CKD-EPI)AfAm Est GFR (CKD-EPI)NonAf POC Glucometer 49 113 55 Random Glucose Calcium Phosphorus Magnesium 05/01/19 05/01/19 06:49 07:10 Sodium 141 Potassium 3.8 Chloride 103 Carbon Dioxide 28 Anion Gap 10 BUN 5.4 L Creatinine 0.5 L Est GFR (CKD-EPI)AfAm 154.81 Est GFR (CKD-EPI)NonAf 133.57 POC Glucometer 117 Random Glucose 103 Calcium 8.4 L Phosphorus 3.2 Magnesium 1.8 Current Medications Generic Name Dose Route Start Last Admin Trade Name Freq PRN Reason Stop Dose Admin Insulin Aspart 1 vial 05/01/19 07:00 05/01/19 06:23 Novolog Vial Sliding Scale - SQ Not Given [facility] Protocol Insulin Detemir 12 units 05/01/19 07:47 Levemir Vial SQ [facility] ASSESSMENT AND PLAN: This is a 24 year old woman with a history of type 1 DM who presented to the ED with nausea and vomiting. 1. DKA - Resolved 2. Type 1 DM, uncontrolled - HbA1c 12.4 - Hypoglycemic this morning - Levemir dose decreased for tonight - Continue Novolog sliding scale 3. Disposition - Plan for discharge tomorrow if no further hypoglycemia
--- NOTE | 2019-05-01 09:47 | PN ---
Progress Note (short form) - Note Progress Note: Events noted Symptomatic hypoglycemia overnight Feels good Vital Signs Period Temp Pulse Resp BP Sys/Steele Pulse Ox Last 24 Hr 98 F-98.8 F 94-118 17-20 102-117/67-80 99 PE: AOx3 Neck: Supple, No JVD HEENT: EOMI Lungs: CTA CVS: s1S2 Abd: Benign Ext: No edema Neuro: No focal deficit CMP Sodium 141 mmol/L (136-145) 05/01/19 07:10 Potassium 3.8 mmol/L (3.5-5.1) 05/01/19 07:10 Chloride 103 mmol/L (98-107) 05/01/19 07:10 Carbon Dioxide 28 mmol/L (21-32) 05/01/19 07:10 Anion Gap 10 MMOL/L (8-16) 05/01/19 07:10 BUN 5.4 mg/dL (7-18) L 05/01/19 07:10 Creatinine 0.5 mg/dL (0.55-1.3) L 05/01/19 07:10 Est GFR (CKD-EPI)AfAm 154.81 05/01/19 07:10 Est GFR (CKD-EPI)NonAf 133.57 05/01/19 07:10 POC Glucometer 117 UNITS (80-120) 05/01/19 06:49 Random Glucose 103 mg/dL (74-106) 05/01/19 07:10 Hemoglobin A1c % 12.4 % (4.2-6.3) H 04/30/19 06:20 Calcium 8.4 mg/dL (8.5-10.1) L 05/01/19 07:10 Phosphorus 3.2 mg/dL (2.5-4.9) 05/01/19 07:10 Magnesium 1.8 mg/dL (1.8-2.4) 05/01/19 07:10 Total Bilirubin 0.4 mg/dL (0.2-1) 04/30/19 06:20 AST 13 U/L (15-37) L 04/30/19 06:20 ALT 14 U/L (13-61) 04/30/19 06:20 Alkaline Phosphatase 49 U/L (45-117) 04/30/19 06:20 Creatine Kinase 39 U/L (26-192) 04/29/19 07:50 Troponin I < 0.02 ng/ml (0.00-0.05) 04/29/19 07:50 Total Protein 5.4 g/dl (6.4-8.2) L 04/30/19 06:20 Albumin 3.1 g/dl (3.4-5.0) L 04/30/19 06:20 Beta-Hydroxybutyrate 118.7 mg/dL (0.2-2.8) H 04/29/19 07:50 Serum , Qual Negative 04/29/19 07:50 Current Medications Generic Name Dose Route Start Last Admin Trade Name Freq PRN Reason Stop Dose Admin Insulin Aspart 1 vial 05/01/19 07:00 05/01/19 06:23 Novolog Vial Sliding Scale - SQ Not Given ACHS KATHRYN Protocol Insulin Detemir 12 units 05/01/19 07:47 Levemir Vial SQ HS [facility] AP: DKA T1DM: Episode of hypoglycemia Off IV Insulin and IVF Tolerating PO feeding Decrease Levemir to 12 QHS Decrease Novolog coverage BGM QACHS Monitor electrolytes Diet exercise discussed Diabetes education done. Discussed need to take Basal Insulin as prescribed to prevent further episodes of DKA. To go to ED if unable to keep food down. Problem List - Problems (1) DKA (diabetic ketoacidoses) Code(s): E13.10 - OTH DIABETES MELLITUS WITH KETOACIDOSIS WITHOUT COMA Qualifiers: Diabetes mellitus type: type 1 Diabetes mellitus complication detail: without coma Qualified Code(s): E10.10 - Type 1 diabetes mellitus with ketoacidosis without coma (2) Diabetes mellitus Code(s): E11.9 - TYPE 2 DIABETES MELLITUS WITHOUT COMPLICATIONS
[2019-05-01] MEDS ORDERED: PANTOPRAZOLE SODIUM 40 MG VIAL IVPUSH ONE (09:56)
[2019-05-01 12:06] VITALS: BMI 14.4
[2019-05-01] MEDS: INSULIN SLIDING SCALE (NOVOLOG) 1 VIAL SQ SCH ×2 (12:39→17:53)
--- NOTE | 2019-05-01 12:46 | PN ---
Progress Note (short form) - Note Progress Note: Hospitalist Medicine With episodes of hypoglycemia this AM, as was given "long acting and sliding scale " at same time per pt. Has also had decreased PO intake. Encouraged intake , cont'd monitoring. Vitals 05/01/19 09:25 Temperature 98.1 F Pulse Rate 100 H Respiratory 20 Rate Blood Pressure 122/75 Physical Exam General: AAOx 3 , in NAD HEENT: NCAT, PERRLA. neck: supple cardio: S1, S2 RRR. no r/m/g pulm: CTA B/l. no accessory m usage abdomen: soft, nontender, nondistended LE: 2+ pulses, no edema Laboratory Tests 05/01/19 05/01/19 05:37 07:10 Sodium 141 Potassium 3.8 Chloride 103 Carbon Dioxide 28 BUN 5.4 L Creatinine 0.5 L POC Glucometer 55 Calcium 8.4 L Microbiology 04/29/19 08:15 Urine - Urine Clean Catch Urine Culture - Final NO GROWTH OBTAINED 04/29/19 06:50 Blood - Peripheral Venous Blood Culture - Preliminary NO GROWTH OBTAINED AFTER 24 HOURS, INCUBATION TO CONTINUE FOR 4 DAYS. 04/29/19 06:50 Blood - Peripheral Venous Blood Culture - Preliminary NO GROWTH OBTAINED AFTER 24 HOURS, INCUBATION TO CONTINUE FOR 4 DAYS. Imaging 04/29/19: CXR: clear; without acute abnormality 04/29/19: +sinus tach, rate ~130bpm, qtc 471ms st depressions anterior and inferior leads, however poor quality d/t tach ASSESSMENT/PLAN: 23 y/o F with PMH IDDM, who presents to ED w/ three day hx of intractable nausea , vomiting, and difficulty controlling BG. BG has been ranging between 150-400, with spikes and has been a/w abdominal discomfort and cramping. Admitted to ICU for mgmt DKA. #DKA 2/2 med noncompliance -DKA has resolved, off insulin gtt, off d5 -levemir changed to 12u SQ HS -ISS adjusted by endocrine BIDAC, BGM -cont to monitor BG; if no hypoglycemic episodes can d/c -a1c 12.4% -endocrine consult: Dr. Cisneros #abdominal pain possible 2/2 gastroparesis, decreased PO intake -c/w protonix #F/E/N off IVF continue to follow lytes, replete as necessary diabetic diet , add glucerna BID, qHS snack #PPX DVT: SCD's #Dispo overnight monitoring, anticipate d/c in 24hrs if no hypoglycemic events diabetic teaching completed
[2019-05-01] MEDS ORDERED: INSULIN (NOVOLOG) ASPART 100 UNITS/ML 10ML VIAL ONE (18:06)
[2019-05-02] MEDS: INSULIN SLIDING SCALE (NOVOLOG) 1 VIAL SQ SCH ×2 (06:15→11:21)
[2019-05-02 08:38] LABS: BLOOD UREA NITROGEN 3.8 mg/dL (7-18); CALCIUM 8.7 mg/dL (8.5-10.1); CREATININE 0.4 mg/dL (0.55-1.3); PHOSPHOROUS 3.4 mg/dL (2.5-4.9); POTASSIUM 3.7 mmol/L (3.5-5.1)
--- NOTE | 2019-05-02 09:23 | PN ---
Progress Note (short form) - Note Progress Note: Feels good No complaints BGM 51 in the morning Eager to go home Vital Signs Period Temp Pulse Resp BP Sys/Steele Pulse Ox Last 24 Hr 98 F-98.8 F 92-109 20- 112-122/66-87 100 PE: AOx3 Neck: Supple, No JVD HEENT: EOMI Lungs: CTA CVS: s1S2 Abd: Benign Ext: No edema Neuro: No focal deficit CMP Sodium 139 mmol/L (136-145) 05/02/19 07:00 Potassium 3.7 mmol/L (3.5-5.1) 05/02/19 07:00 Chloride 100 mmol/L (98-107) 05/02/19 07:00 Carbon Dioxide 32 mmol/L (21-32) 05/02/19 07:00 Anion Gap 7 MMOL/L (8-16) L 05/02/19 07:00 BUN 3.8 mg/dL (7-18) L 05/02/19 07:00 Creatinine 0.4 mg/dL (0.55-1.3) L 05/02/19 07:00 Est GFR (CKD-EPI)AfAm 166.61 05/02/19 07:00 Est GFR (CKD-EPI)NonAf 143.75 05/02/19 07:00 POC Glucometer 157 UNITS (80-120) 05/02/19 06:53 Random Glucose 163 mg/dL (74-106) H 05/02/19 07:00 Hemoglobin A1c % 12.4 % (4.2-6.3) H 04/30/19 06:20 Calcium 8.7 mg/dL (8.5-10.1) 05/02/19 07:00 Phosphorus 3.4 mg/dL (2.5-4.9) 05/02/19 07:00 Magnesium 2.0 mg/dL (1.8-2.4) 05/02/19 07:00 Total Bilirubin 0.4 mg/dL (0.2-1) 04/30/19 06:20 AST 13 U/L (15-37) L 04/30/19 06:20 ALT 14 U/L (13-61) 04/30/19 06:20 Alkaline Phosphatase 49 U/L (45-117) 04/30/19 06:20 Creatine Kinase 39 U/L (26-192) 04/29/19 07:50 Troponin I < 0.02 ng/ml (0.00-0.05) 04/29/19 07:50 Total Protein 5.4 g/dl (6.4-8.2) L 04/30/19 06:20 Albumin 3.1 g/dl (3.4-5.0) L 04/30/19 06:20 Beta-Hydroxybutyrate 118.7 mg/dL (0.2-2.8) H 04/29/19 07:50 Serum , Qual Negative 04/29/19 07:50 Current Medications Generic Name Dose Route Start Last Admin Trade Name Freq PRN Reason Stop Dose Admin Insulin Aspart 1 vial 05/01/19 22:00 05/01/19 21:34 Novolog Vial Sliding Scale - SQ Not Given HS KATHRYN Protocol Insulin Aspart 1 vial 05/01/19 11:00 05/02/19 06:15 Novolog Vial Sliding Scale - SQ Not Given [facility] Protocol Insulin Detemir 12 units 05/01/19 07:47 05/01/19 21:34 Levemir Vial SQ 12 units HS KATHRYN Administration AP: DKA T1DM: Episode of hypoglycemia Off IV Insulin and IVF Tolerating PO feeding Decrease Levemir to 9 QHS Novolog coverage BGM QACHS Diet exercise discussed Diabetes education done. Discussed need to take Basal Insulin as prescribed to prevent further episodes of DKA. To go to ED if unable to keep food down. Discussed her home dose of Insulin is much more than what she needs. Explained to take only 9 units Levemir at HS with Novolog Premeal as per chart. To adjust dose as necessary in consultation with her physician. Pt to call [phone] if she wants to see me in the office. To call the same number with any further questions. Problem List - Problems (1) DKA (diabetic ketoacidoses) Code(s): E13.10 - OTH DIABETES MELLITUS WITH KETOACIDOSIS WITHOUT COMA Qualifiers: Diabetes mellitus type: type 1 Diabetes mellitus complication detail: without coma Qualified Code(s): E10.10 - Type 1 diabetes mellitus with ketoacidosis without coma (2) Diabetes mellitus Code(s): E11.9 - TYPE 2 DIABETES MELLITUS WITHOUT COMPLICATIONS
[2019-05-02 12:18] VITALS: BP 109/73; PULSE 109; TEMP 98.1
--- NOTE | 2019-05-02 19:51 | DS ---
Physical Exam: SUBJECTIVE: Patient seen and examined at bedside. Resting comfortably, would like to go home. OBJECTIVE: Vital Signs Period Temp Pulse Resp BP Sys/Steele Pulse Ox Last 24 Hr 98 F-98.2 F 107-109 20-20 109-117/66-87 100-100 Physical Exam General: resting comfortably, in NAD HEENT: NCAT, PERRLA neck: supple, No JVD cardio: S1, S2, RRR. no r/m/g pulm: decreased breath sounds abdomen: diffusely TTP, otherwise no guarding or rigidity LE: 2+ pulses, trace edema. LABS Laboratory Results - last 24 hr 05/01/19 05/02/19 05/02/19 21:30 06:07 06:53 Sodium Potassium Chloride Carbon Dioxide Anion Gap BUN Creatinine Est GFR (CKD-EPI)AfAm Est GFR (CKD-EPI)NonAf POC Glucometer 155 51 157 Random Glucose Calcium Phosphorus Magnesium 05/02/19 05/02/19 07:00 11:17 Sodium 139 Potassium 3.7 Chloride 100 Carbon Dioxide 32 Anion Gap 7 L BUN 3.8 L Creatinine 0.4 L Est GFR (CKD-EPI)AfAm 166.61 Est GFR (CKD-EPI)NonAf 143.75 POC Glucometer 162 Random Glucose 163 H Calcium 8.7 Phosphorus 3.4 Magnesium 2.0 04/29/19 04/30/19 06:50 06:20 WBC 8.7 7.0 Hgb 17.5 H 12.4 Hct 52.3 H D 35.7 D Plt Count 448 H D 261 D 04/29/19 07:02 ABG pH 7.13 L* ABG pCO2 at Pt Temp 15.3 L ABG pO2 at Pt Temp 124 H ABG HCO3 4.8 L ABG O2 Sat (Measured) 97.2 ABG O2 Content 21.1 ABG Base Excess -24.1 L 04/29/19 04/29/19 04/29/19 07:50 11:15 15:00 Sodium 135 L 138 141 Potassium 4.8 5.1 3.8 Chloride 102 110 H 114 H Carbon Dioxide 7 L 8 L Anion Gap 26 H 20 H 11 BUN 19.4 H 14.1 Creatinine 0.7 Est GFR (CKD-EPI)AfAm 139.57 Est GFR (CKD-EPI)NonAf 120.42 Random Glucose 528 H* 497 H* 130 H Calcium 7.9 L AST 13 L ALT 22 Alkaline Phosphatase 70 Creatine Kinase 39 Troponin I < 0.02 Total Protein 6.9 Albumin 3.8 Beta-Hydroxybutyrate 118.7 H 04/30/19 05/01/19 05/02/19 06:20 07:10 07:00 Sodium 140 141 139 Potassium 3.7 3.8 Chloride 111 H 103 Carbon Dioxide 21 28 Anion Gap 8 10 BUN 6.9 L 5.4 L Creatinine 0.6 0.5 L Est GFR (CKD-EPI)AfAm Est GFR (CKD-EPI)NonAf Random Glucose Calcium AST ALT Alkaline Phosphatase Creatine Kinase Troponin I Total Protein Albumin Beta-Hydroxybutyrate HOSPITAL COURSE: Date of Admission:04/29/19 Date of Discharge: 05/02/19 23 y/o F with PMH IDDM, who presents to ED w/ three day hx of intractable nausea , vomiting, and difficulty controlling BG. BG has been ranging between 150-400, with spikes and has been a/w abdominal discomfort and cramping. Admitted to ICU for mgmt DKA. #DKA 2/2 med noncompliance -DKA has resolved, off insulin gtt, off d5, transferred from ICU to floor -levemir changed to 9u sq HS -ISS TIDAC, as per endocrine -cont to monitor BG before meals -a1c 12.4% -to follow with endocrine as outpatient -diabetic education completed; pt to return to ED if unable to perform PO intake Minutes to complete discharge: 45 Discharge Summary Problems reviewed: Yes Reason For Visit: DIABETIC KETOACIDOSIS Condition: Fair - Instructions Diet, Activity, Other Instructions: You were in the hospital because you had diabetic ketoacidosis (DKA). Basically this means that your sugar level was very high, and you needed monitoring in the intensive care unit (ICU) with an insulin drip to help improve your sugar levels. During this time, you also received IV fluids to help hydrate you. You improved, and were moved to the medical floor for continued monitoring. You are doing better now and are being discharged. Medications 1. Please do NOT take your previous doses of levemir (do NOT take 30u twice a day); you are now to take Levemir 9 units sq at night 2. Use novolog insulin sliding scale before meals (TIDAC) using the following scale: Blood sugar level Units 101-150 2 units 151-200 3 units 201-250 4 units 251-300 5 units 301-350 6 units 351-400 7 units >400 8 units, and please call your doctor immediately to let them know. Care -a Healthy diet with fruits and vegetables is very important, especially during the holiday time coming up. Make sure you are eating healthy and continuing to exercise frequently. -Continue to check your blood sugars before meals and at night time. Very, very important. It is helpful also to keep a blood sugar diary, which you can give to your doctors. Follow-up appointments -Please see your primary care provider, Barb Causey NP -within 1 week to discuss your visit. -Please make an appointment to see your motion picture director (diabetes doctor), Dr. Cisneros - this upcoming week. [phone] You can also call him if you have any questions.\ Important Please go to the ER immediately if you are unable to keep food down. Also, if you are feeling unwell, please call your doctor immediately to update them. Referrals: Alanis Galeano MD [Staff Physician] - 1 Week Barb Barragan MD [Nurse Practitioner] - 05/05/19 Disposition: HOME - Home Medications Comprehensive Discharge Medication List: Ambulatory Orders Blood Sugar Diagnostic [Blood Glucose Test Strip] 1 each MC DAILY #100 strip Insulin Detemir [Levemir Flextouch] 9 unit SQ HS #3 insuln.pen 05/02/19 Insulin Sliding Scale [Novolog Vial Sliding Scale -] 1 vial SQ TIDAC 30 Days # 100 units 05/02/19 Pen Needle, Diabetic [[place]] 1 each MC DAILY #100 dis.needle 05/02/19 This patient is new to me today: No Emergency Visit: No Critical Care patient: No - Discharge Referral Referred to [facility] No
== END 2019-05-02 14:30 | disposition home or self-care (01) | DRG 420 ==
LOC: JER 06:13 → JERBED 07:49 → JICU 11:44 → J8W 04-30 21:19
PROVIDERS: ADMIT Internal Medicine; ATTEND Internal Medicine
DX: E10.10 Type 1 diabetes mellitus with ketoacidosis without coma (principal); E43 Unspecified severe protein-calorie malnutrition; K31.84 Gastroparesis; R01.1 Cardiac murmur, unspecified; Z91.19 Patient's noncompliance with other medical treatment and regimen; E86.0 Dehydration; R00.0 Tachycardia, unspecified; E10.65 Type 1 diabetes mellitus with hyperglycemia; E10.43 Type 1 diabetes mellitus with diabetic autonomic (poly)neuropathy
CPT/HCPCS: 36415; 36600; 71045-TC-FY; 80048; 80053; 81003; 82010; 82375; 82550; 82803; 82962; 83036; 83050; 83735; 84100; 84484; 84703; 85025; 85610; 85730; 87040; 87086; 93005; 93010; 99285-25; J7030

== ENCOUNTER 2020-09-02 14:09 | Emergency (ER) | payer OTHER ==
[2020-09-02 14:26] VITALS: BMI 12.5
[2020-09-02] MEDS ORDERED: ACETAMINOPHEN 1000 MG/100 ML VIAL (NON FORMULARY) IVPB ONE (15:34)
[2020-09-02] MEDS ORDERED: SODIUM CHLORIDE 1,000 ML IV STA ×2 (15:34→17:56)
[2020-09-02] MEDS ORDERED: ACETAMINOPHEN INJECTION 100 ML IVPB ONE (15:46)
[2020-09-02 16:49] LABS: BASO % 0.5 % (0-2.0); EOS % 1.2 % (0-4.5); HEMATOCRIT 47.4 % (32.4-45.2); HEMOGLOBIN 16.2 GM/dL (10.7-15.3); LYMPH % 37.6 % (8-40); MCHC 34.2 g/dl (32.0-36.0); MEAN CELL VOLUME 90.7 fl (80-96); MEAN PLT VOLUME 7.8 fl (7.5-11.1); MONO % 7.5 % (3.8-10.2); NEUT % 53.2 % (42.8-82.8); PLATELET COUNT 322 K/MM3 (134-434); RBC 5.22 M/mm3 (3.60-5.2); RDW 12.6 % (11.6-15.6); WHITE BLOOD COUNT 4.3 K/mm3 (4.0-10.0)
[2020-09-02 16:56] LABS: INR 0.89 (0.83-1.09)
[2020-09-02 17:07] LABS: ALBUMIN 4.3 g/dl (3.4-5.0); CALCIUM 9.7 mg/dL (8.5-10.1)
[2020-09-02 17:11] LABS: CREATININE 0.6 mg/dL (0.55-1.3)
[2020-09-02 17:12] LABS: BILIRUBIN,TOTAL 0.8 mg/dL (0.2-1)
[2020-09-02 17:50] VITALS: TEMP 97.8
[2020-09-02 19:02] LABS: PH,URINE 5.5 (5.0-8.0); URINE APPEARANCE CLEAR; URINE BILIRUBIN NEGATIVE (NEGATIVE); URINE COLOR YELLOW; URINE GLUCOSE (UA) 3+ (NEGATIVE); URINE KETONE 4+ (NEGATIVE); URINE LEUK ESTERASE NEGATIVE (NEGATIVE); URINE NITRITE NEGATIVE (NEGATIVE); URINE PROTEIN TRACE (NEGATIVE); URINE UROBILINOGEN 0.2 mg/dL (0.2-1.0)
[2020-09-02 19:07] LABS: HCG,QUALITATIVE URINE Negative
[2020-09-02] MEDS ORDERED: LIDOCAINE HCL 2% JELLY 10 ML CARTRIDGE PR ONE (21:47)
[2020-09-02] MEDS ORDERED: LIDOCAINE HCL 2% JELLY 10 ML CARTRIDGE ONE (21:48)
[2020-09-02 22:05] VITALS: BP 98/64; PULSE 96
== END 2020-09-02 22:06 | disposition home or self-care (01) ==
LOC: JER 14:09
PROC: 3E033NZ Introduction of Analgesics, Hypnotics, Sedatives into Peripheral Vein, Percutaneous Approach (ICD-10-PCS; principal; 2020-09-02)
PROC: 3E0337Z Introduction of Electrolytic and Water Balance Substance into Peripheral Vein, Percutaneous Approach (ICD-10-PCS; 2020-09-02)
DX: K62.5 Hemorrhage of anus and rectum (principal)
CPT/HCPCS: 36415; 74021-TC-FY; 74177-TC; 80053; 81003; 84703; 85025; 85610; 86850; 86900; 86901; 87086; 99285-25; J0131; Q9967

== ENCOUNTER 2020-11-29 09:38 | Emergency (ER) | payer OTHER ==
[2020-11-29 09:45] VITALS: BMI 13.0
[2020-11-29] MEDS ORDERED: SODIUM CHLORIDE IV ONE (09:49)
[2020-11-29 10:34] LABS: BASO % 0.6 % (0-2.0); HEMATOCRIT 46.3 % (32.4-45.2); HEMOGLOBIN 15.6 GM/dL (10.7-15.3); LYMPH % 44.1 % (8-40); MCH 29.4 pg (25.7-33.7); MCHC 33.8 g/dl (32.0-36.0); MEAN PLT VOLUME 7.7 fl (7.5-11.1); MONO % 11.4 % (3.8-10.2); NEUT % 42.9 % (42.8-82.8); PLATELET COUNT 477 10^3/uL (134-434); RBC 5.31 M/mm3 (3.60-5.2); RDW 11.8 % (11.6-15.6); WHITE BLOOD COUNT 4.8 K/mm3 (4.0-10.0)
[2020-11-29 10:35] LABS: VENOUS BASE EXCESS -0.5 mmol/L (-2-2); VENOUS O2 SATURATION 32.8 % (70-80); VENOUS PCO2 52.2 mmHg (38-52); VENOUS PH 7.324 (7.310-7.410)
[2020-11-29 10:41] LABS: INR 0.97 (0.83-1.09); PROTHROMBIN TIME (PATIENT) 11.7 SEC (9.7-13.0)
[2020-11-29 10:43] LABS: ACTIVATED PTT 33.4 SECONDS (25.2-36.5)
[2020-11-29 10:54] LABS: CALCIUM 9.6 mg/dL (8.5-10.1)
[2020-11-29 10:55] LABS: ALBUMIN 4.3 g/dl (3.4-5.0); MAGNESIUM 2.2 mg/dL (1.8-2.4)
[2020-11-29 10:58] LABS: CREATININE 0.7 mg/dL (0.55-1.3); PHOSPHOROUS 3.6 mg/dL (2.5-4.9)
[2020-11-29 10:59] LABS: BILIRUBIN,TOTAL 0.8 mg/dL (0.2-1); TOT PROT 8.5 g/dl (6.4-8.2)
[2020-11-29] MEDS ORDERED: LACTATED RINGERS SOLUTION 1000 ML INFUS.BAG IV ONE (12:52)
[2020-11-29 14:39] LABS: EPI CELLS >36 /uL (0-25.1); HYALINE CASTS 19 /uL (0-3.1); PH,URINE 5.5 (5.0-8.0); URINE APPEARANCE CLEAR; URINE BACTERIA 37 /uL (0-1359); URINE BILIRUBIN NEGATIVE (NEGATIVE); URINE COLOR YELLOW; URINE GLUCOSE (UA) 3+ (NEGATIVE); URINE KETONE 1+ (NEGATIVE); URINE LEUK ESTERASE NEGATIVE (NEGATIVE); URINE NITRITE NEGATIVE (NEGATIVE); URINE PROTEIN 1+ (NEGATIVE); URINE RBC 8 /uL (0-23.9); URINE UROBILINOGEN 0.2 mg/dL (0.2-1.0)
[2020-11-29 15:13] LABS: URINE WBC 8.1 /uL (0-25.8)
[2020-11-29 15:53] VITALS: TEMP 99.1
[2020-11-29 16:51] VITALS: BP 115/70; PULSE 90
== END 2020-11-29 18:58 | disposition left against medical advice (07) ==
LOC: JER 09:38
PROC: 3E0337Z Introduction of Electrolytic and Water Balance Substance into Peripheral Vein, Percutaneous Approach (ICD-10-PCS; principal; 2020-11-29)
DX: R63.0 Anorexia (principal); I95.9 Hypotension, unspecified; E86.0 Dehydration
CPT/HCPCS: 36415; 71045-TC-FY; 80053; 81003; 82803; 82962; 83605; 83735; 84100; 84703; 85025; 85610; 85730; 87040; 93005; 93010; 93308; 99285-25

== ENCOUNTER 2021-01-12 12:02 | Emergency (ER) | payer OTHER ==
[2021-01-12 12:20] VITALS: BP 112/57; PULSE 119; TEMP 98.3; BMI 12.7
[2021-01-12] MEDS ORDERED: NAPROXEN 500 MG TABLET PO ONE (15:26)
[2021-01-12] MEDS ORDERED: NAPROXEN 500 MG TABLET ONE (15:28)
== END 2021-01-12 15:41 | disposition home or self-care (01) ==
LOC: JERFT 12:02 → JER 12:02 → JERFT 15:41
DX: M79.662 Pain in left lower leg (principal); M79.661 Pain in right lower leg; E10.42 Type 1 diabetes mellitus with diabetic polyneuropathy
CPT/HCPCS: 82962; 93005; 93010; 93970-TC; 99284-25; C9803; U0003; U0005

== ENCOUNTER 2021-01-28 13:41 | Inpatient (IN) | payer OTHER ==
[2021-01-28] MEDS ORDERED: SODIUM CHLORIDE 0.9% 500 ML INFUS.BAG IV ONE ×2 (14:21→16:05)
[2021-01-28 15:25] LABS: VENOUS BASE EXCESS -5.5 mmol/L (-2-2); VENOUS O2 SATURATION 53.3 % (70-80); VENOUS PCO2 49.1 mmHg (38-52); VENOUS PH 7.265 (7.310-7.410)
[2021-01-28 15:27] LABS: BASO % 1.1 % (0-2.0); EOS % 0.6 % (0-4.5); HEMATOCRIT 43.1 % (32.4-45.2); HEMOGLOBIN 14.9 GM/dL (10.7-15.3); LYMPH % 38.1 % (8-40); MCH 29.3 pg (25.7-33.7); MCHC 34.6 g/dl (32.0-36.0); MEAN CELL VOLUME 84.7 fl (80-96); MEAN PLT VOLUME 8.4 fl (7.5-11.1); MONO % 7.5 % (3.8-10.2); NEUT % 52.7 % (42.8-82.8); PLATELET COUNT 264 10^3/uL (134-434); RBC 5.08 M/mm3 (3.60-5.2); RDW 12.9 % (11.6-15.6); WHITE BLOOD COUNT 4.4 K/mm3 (4.0-10.0)
[2021-01-28 15:36] LABS: INR 0.98 (0.83-1.09); PROTHROMBIN TIME (PATIENT) 11.9 SEC (9.7-13.0)
[2021-01-28 15:39] LABS: ACTIVATED PTT 27.4 SECONDS (25.2-36.5); PH,URINE 5.5 (5.0-8.0); URINE APPEARANCE CLEAR; URINE BILIRUBIN NEGATIVE (NEGATIVE); URINE COLOR YELLOW; URINE GLUCOSE (UA) 3+ (NEGATIVE); URINE KETONE 4+ (NEGATIVE); URINE LEUK ESTERASE NEGATIVE (NEGATIVE); URINE NITRITE NEGATIVE (NEGATIVE); URINE PROTEIN TRACE (NEGATIVE); URINE UROBILINOGEN 0.2 mg/dL (0.2-1.0)
[2021-01-28] MEDS ORDERED: LACTATED RINGERS SOLUTION 1000 ML INFUS.BAG IV ONE (16:04)
[2021-01-28 16:44] LABS: CHLORIDE 100 mmol/L (98-107); SODIUM 137 mmol/L (136-145)
[2021-01-28 16:47] LABS: ALBUMIN 4.5 g/dl (3.4-5.0); ANION GAP 15 MMOL/L (8-16); BLOOD UREA NITROGEN 17.3 mg/dL (7-18); CALCIUM 9.7 mg/dL (8.5-10.1); CO2 22 mmol/L (21-32); MAGNESIUM 2.2 mg/dL (1.8-2.4)
[2021-01-28 16:48] LABS: GLUCOSE,RANDOM 287 mg/dL (74-106)
[2021-01-28 16:50] LABS: CREATININE 0.6 mg/dL (0.55-1.3); SGOT/AST 13 U/L (15-37); SGPT/ALT 44 U/L (13-61)
[2021-01-28 16:51] LABS: BILIRUBIN,TOTAL 1.1 mg/dL (0.2-1); PHOSPHOROUS 4.3 mg/dL (2.5-4.9); TOT PROT 8.3 g/dl (6.4-8.2)
[2021-01-28 16:54] LABS: ALK PHOS 97 U/L (45-117)
[2021-01-28] MEDS ORDERED: INSULIN REGULAR HUMAN 100 UNITS/ML *VIAL IVPUSH ONE (18:19)
[2021-01-28 20:47] LABS: BLOOD UREA NITROGEN 12.1 mg/dL (7-18)
[2021-01-28 20:50] LABS: CREATININE 0.6 mg/dL (0.55-1.3)
[2021-01-28] MEDS ORDERED: POTASSIUM CHLORIDE TABS 20 MEQ TABLET.ER (FP) PO ONE ×2 (21:31→21:47)
[2021-01-28] MEDS ORDERED: ACETAMINOPHEN 325 MG TABLET (FP) PO PRN (23:53)
[2021-01-28] MEDS ORDERED: INSULIN (LEVEMIR) 100 UNITS/ML UNITS SQ SCH (23:57)
[2021-01-29] MEDS: LACTATED RINGERS SOLUTION 1,000 ML IV SCH ×4 (01:37→23:36)
[2021-01-29] MEDS: INSULIN SLIDING SCALE (NOVOLOG) 1 VIAL SQ SCH ×3 (06:07→16:42)
[2021-01-29 07:56] LABS: HEMATOCRIT 34.3 % (32.4-45.2); HEMOGLOBIN 12.3 GM/dL (10.7-15.3); MCH 29.9 pg (25.7-33.7); MCHC 35.7 g/dl (32.0-36.0); MEAN CELL VOLUME 83.9 fl (80-96); MEAN PLT VOLUME 8.3 fl (7.5-11.1); PLATELET COUNT 236 10^3/uL (134-434); RBC 4.09 M/mm3 (3.60-5.2); RDW 13.2 % (11.6-15.6)
[2021-01-29 08:15] LABS: CALCIUM 8.2 mg/dL (8.5-10.1)
[2021-01-29 08:16] LABS: BLOOD UREA NITROGEN 7.8 mg/dL (7-18); MAGNESIUM 1.8 mg/dL (1.8-2.4)
[2021-01-29 08:19] LABS: CREATININE 0.4 mg/dL (0.55-1.3); PHOSPHOROUS 2.8 mg/dL (2.5-4.9)
[2021-01-29 08:20] LABS: BILIRUBIN,TOTAL 1.1 mg/dL (0.2-1); TOT PROT 6.6 g/dl (6.4-8.2)
[2021-01-29] MEDS ORDERED: THIAMINE HCL 200 MG/2 ML VIAL IVPB ONE (08:39)
[2021-01-29] MEDS: POTASSIUM CHLORIDE TABS 20 MEQ TABLET.ER (FP) PO SCH (09:27)
[2021-01-29] MEDS: DRONABINOL 2.5 MG CAPSULE PO SCH (09:27)
[2021-01-29] MEDS ORDERED: INSULIN (NOVOLOG) ASPART 100 UNITS/ML 10ML VIAL ONE ×2 (11:00→17:11)
[2021-01-29] MEDS: GABAPENTIN 300 MG CAPSULE PO SCH (11:16)
[2021-01-29 12:40] LABS: ALBUMIN 3.4 g/dl (3.4-5.0)
[2021-01-29] MEDS ORDERED: MULTIVIT-MINERALS ORAL LIQUID PO SCH (16:00)
[2021-01-29] MEDS ORDERED: MULTIVITAMINS THER W-MINERALS COMBO TABLET (FP) PO SCH (16:12)
[2021-01-29] MEDS: MULTIVITAMINS (DAILY MVI) TABLET (FP) PO SCH (18:11)
[2021-01-29 20:57] VITALS: BMI 12.9
[2021-01-29] MEDS ORDERED: INSULIN (LEVEMIR) 100 UNITS/ML UNITS SQ SCH ×2 (22:00)
[2021-01-29] MEDS: HEPARIN NA (PORCINE) 5,000 UNITS/ML 1ML VIAL SQ SCH (22:30)
[2021-01-29 22:42] VITALS: TEMP 98.7
[2021-01-29] MEDS ORDERED: ONDANSETRON 4 MG/2 ML VIAL IVPUSH PRN (23:56)
[2021-01-30 05:20] VITALS: BP 100/66; PULSE 105
[2021-01-30] MEDS: HEPARIN NA (PORCINE) 5,000 UNITS/ML 1ML VIAL SQ SCH ×2 (06:06→13:37)
[2021-01-30] MEDS: INSULIN SLIDING SCALE (NOVOLOG) 1 VIAL SQ SCH ×3 (06:14→17:24)
[2021-01-30] MEDS ORDERED: INSULIN (LEVEMIR) 100 UNITS/ML UNITS SQ SCH (07:00)
[2021-01-30 07:02] LABS: HEMATOCRIT 38.6 % (32.4-45.2); HEMOGLOBIN 13.7 GM/dL (10.7-15.3); MCH 29.6 pg (25.7-33.7); MCHC 35.5 g/dl (32.0-36.0); MEAN CELL VOLUME 83.4 fl (80-96); MEAN PLT VOLUME 8.1 fl (7.5-11.1); PLATELET COUNT 241 10^3/uL (134-434); RBC 4.62 M/mm3 (3.60-5.2); RDW 13.2 % (11.6-15.6); WHITE BLOOD COUNT 5.5 K/mm3 (4.0-10.0)
[2021-01-30 07:31] LABS: BLOOD UREA NITROGEN 12.9 mg/dL (7-18); CALCIUM 9.1 mg/dL (8.5-10.1)
[2021-01-30 07:32] LABS: ALBUMIN 3.7 g/dl (3.4-5.0)
[2021-01-30 07:34] LABS: CREATININE 0.4 mg/dL (0.55-1.3)
[2021-01-30 07:35] LABS: PHOSPHOROUS 3.8 mg/dL (2.5-4.9)
[2021-01-30 07:36] LABS: BILIRUBIN,TOTAL 0.7 mg/dL (0.2-1); TOT PROT 7.2 g/dl (6.4-8.2)
[2021-01-30 08:30] LABS: HIV INTERPRETATION NEGATIVE (NEGATIVE)
[2021-01-30] MEDS: MULTIVITAMINS (DAILY MVI) TABLET (FP) PO SCH (09:57)
[2021-01-30] MEDS: DRONABINOL 2.5 MG CAPSULE PO SCH (09:57)
[2021-01-30] MEDS: POTASSIUM CHLORIDE TABS 20 MEQ TABLET.ER (FP) PO SCH (09:57)
[2021-01-30] MEDS: GABAPENTIN 300 MG CAPSULE PO SCH (09:57)
[2021-01-30] MEDS ORDERED: THIAMINE HCL 200 MG/2 ML VIAL IVPB SCH (10:00)
[2021-01-31 21:06] LABS: TRANSGLUTAMINASE IGA < 2 U/mL (0-3); TRANSGLUTAMINASE IGG < 2 U/mL (0-5)
== END 2021-01-30 19:54 | disposition home or self-care (01) | DRG 421 ==
LOC: JER 13:41 → JERBED 20:46 → J7W 01-29 00:50
PROVIDERS: ADMIT Internal Medicine; ATTEND Internal Medicine
DX: R62.7 Adult failure to thrive (principal); E11.42 Type 2 diabetes mellitus with diabetic polyneuropathy; R63.0 Anorexia; R64 Cachexia; R00.0 Tachycardia, unspecified; Z68.1 Body mass index [BMI] 19.9 or less, adult; E43 Unspecified severe protein-calorie malnutrition; R19.7 Diarrhea, unspecified; E87.2 Acidosis; R91.1 Solitary pulmonary nodule; R82.71 Bacteriuria; Z79.4 Long term (current) use of insulin; J98.4 Other disorders of lung; I95.1 Orthostatic hypotension; E86.1 Hypovolemia
CPT/HCPCS: 36415; 71045-TC-FY; 71250-TC; 80048; 80053; 81003; 82010; 82550; 82803; 82962; 83516; 83605; 83735; 84100; 84443; 84484; 84703; 85025; 85027; 85610; 85730; 86753; 86850; 86900; 86901; 87045; 87046; 87086; 87177; 87186; 87209; 87328; 87329; 87389; 87427; 93005; 93010; 97116-GP; 97161-GP; 99285-25; C9803; J1644; U0003; U0005

== ENCOUNTER 2021-12-17 00:43 | Emergency (ER) | payer OTHER ==
[2021-12-17 01:08] VITALS: TEMP 98.3; BMI 16.2
[2021-12-17 05:03] LABS: BLOOD UREA NITROGEN 11.4 mg/dL (7-18)
[2021-12-17 05:06] LABS: CREATININE 0.5 mg/dL (0.55-1.3)
[2021-12-17 08:19] VITALS: RESP 16
[2021-12-17 08:42] LABS: BASO % 0.4 % (0-2.0); EOS % 0.5 % (0-4.5); HEMATOCRIT 36.2 % (32.4-45.2); HEMOGLOBIN 12.2 GM/dL (10.7-15.3); LYMPH % 26.8 % (8-40); MCH 28.8 pg (25.7-33.7); MCHC 33.7 g/dl (32.0-36.0); MEAN CELL VOLUME 85.4 fl (80-96); MEAN PLT VOLUME 8.2 fl (7.5-11.1); MONO % 7.7 % (3.8-10.2); NEUT % 64.6 % (42.8-82.8); PLATELET COUNT 272 10^3/uL (134-434); RBC 4.24 M/mm3 (3.60-5.2); RDW 12.8 % (11.6-15.6); WHITE BLOOD COUNT 7.1 K/mm3 (4.0-10.0)
[2021-12-17] MEDS ORDERED: SODIUM CHLORIDE 0.9% 500 ML INFUS.BAG IV ONE (08:50)
[2021-12-17 08:52] LABS: INR 1.08 (0.83-1.09); PROTHROMBIN TIME (PATIENT) 12.4 SEC (9.7-13.0)
[2021-12-17 08:54] LABS: ACTIVATED PTT 27.1 SECONDS (25.2-36.5)
[2021-12-17] MEDS ORDERED: INSULIN REGULAR HUMAN 100 UNITS/ML *VIAL SQ ONE ×2 (09:38→09:47)
[2021-12-17 12:09] VITALS: PULSE 110
[2021-12-17 12:13] VITALS: BP 100/60
== END 2021-12-17 16:20 | disposition left against medical advice (07) ==
LOC: JER 00:43 → JERBED 07:04 → UNDOADMIN 07:04
DX: D14.30 Benign neoplasm of unspecified bronchus and lung (principal); R04.2 Hemoptysis; R63.0 Anorexia; Z79.4 Long term (current) use of insulin
CPT/HCPCS: 36415; 71046-TC-FY; 71260-TC; 80048; 82962; 84703; 85025; 85610; 85730; 86850; 86900; 86901; 87040; 93005; 93010; 99285-25; C9803-CS; Q9967; U0003; U0005